=== PATIENT | male | born 1945 | race Caucasian/White ===

== ENCOUNTER → 2018-03-17 12:43 | Outpatient (CLI) | payer MEDICARE, SELFPAY ==
[2018-03-17 13:01] LABS: Microscopic, Urine URINE MICROSCOPIC (MICROSCOPIC)
[2018-03-17 13:30] LABS: Appearance,Urine CLEAR (Clear); Bilirubin,Urine Negative (Negative); Blood, Urine Negative (Negative); Color,Urine YELLOW (Yellow); Glucose,Urine (UA) Negative (Negative); Ketones,Urine Negative (Negative); Leukocyte Esterase,Urine Negative (Negative); Nitrate,Urine Negative (Negative); Protein,Urine Negative (Negative); Urobilinogen,Urine 0.2 EU/dl (0.2)
[2018-03-17 13:41] LABS: Basophils # 0.1 K/mm3 (0-0.2); Basophils % 0.7 % (0.1-2.0); Eosinophils # 0.5 K/mm3 (0.0-0.4); Eosinophils % 6.4 % (0.1-12.0); Hematocrit 48.1 % (42.0-52.0); Hemoglobin 15.3 g/dL (14.1-18.0); Lymphocytes # 1.9 K/mm3 (0.7-4.5); Lymphocytes % 26.1 K/mm3 (10-50); Mean Corpuscular HGB Conc 31.8 g/dL (31.8-35.4); Mean Corpuscular Hemoglobin 30.5 pg (27.0-31.2); Mean Platelet Volume 9.2 fl (7.4-10.4); Monocytes # 0.4 K/mm3 (0.1-1.0); Monocytes % 4.9 % (1.7-9.3); Neutrophils # 4.4 K/mm3 (1.8-7.8); Neutrophils % 61.9 % (37.0-80.0); Platelet Count 205 K/mm3 (142-424); Red Cell Distribution Width 13.3 % (11.5-17.5); White Blood Count 7.2 K/mm3 (4.8-10.8)
[2018-03-17 13:50] LABS: Creatinine,Urine Random 163 mg/dL (20-320); Total Protein,Urine Random 8.5 mg/dL (0.0-11.9)
[2018-03-17 13:54] LABS: Bacteria,Urine Trace /lpf; Squamous Epithelial Cell,Urine Occasional #/hpf (0-5)
[2018-03-17 14:25] LABS: Albumin Level 3.8 gm/dL (3.4-5.0); Anion Gap 10.7 mEq/L (5-15); Blood Urea Nitrogen 46 mg/dL (7-18); Calcium 9.2 mg/dL (8.5-10.1); Carbon Dioxide 28 mmol/L (21.0-32.0); Chloride 108 mmol/L (98-107); Creatinine,Serum 2.23 mg/dL (0.70-1.30); Estimated Glomerular Filt Rate 29 ml/min (>60); GFR (African American) 35 ML/MIN (>60); Glucose 84 mg/dL (74-106); Phosphorous 3.3 mg/dL (2.4-4.9); Potassium 5.7 mmoL/L (3.5-5.1); Sodium 141 mmol/L (136-145); Uric Acid 7.4 mg/dL (2.6-7.2)
[2018-03-18 16:53] LABS: Vitamin D 25 Hydroxy 35.3 ng/mL (30.0-100.0)
== END ==
PROVIDERS: PCP Family Medicine; Visit Provider Internal Medicine Nephrology
DX: N18.3 Chronic kidney disease, stage 3 (moderate) (principal)
CPT/HCPCS: 36415; 80069; 81001; 82570; 82652; 84155; 84550; 85025

== ENCOUNTER → 2018-04-27 13:01 | Outpatient (POV) | payer MEDICARE, SELFPAY | PROVIDERS: Visit Provider Internal Medicine Nephrology | DX: Z00.00 Encounter for general adult medical examination without abnormal findings (principal) ==

== ENCOUNTER → 2019-05-03 11:25 | Outpatient (CLI) | payer MEDICARE, SELFPAY ==
[2019-05-03 11:55] LABS: Basophils % 0.6 % (0.1-2.0); Eosinophils # 0.5 K/mm3 (0.0-0.4); Eosinophils % 7.5 % (0.1-12.0); Hematocrit 49.6 % (42.0-52.0); Lymphocytes # 1.6 K/mm3 (0.7-4.5); Lymphocytes % 25.7 % (10-50); Mean Corpuscular HGB Conc 32.2 g/dL (31.8-35.4); Mean Corpuscular Hemoglobin 31.6 pg (27.0-31.2); Mean Corpuscular Volume 97.9 fl (80-94); Monocytes # 0.3 K/mm3 (0.1-1.0); Monocytes % 5.2 % (1.7-9.3); Neutrophils # 3.8 K/mm3 (1.8-7.8); Platelet Count 193 K/mm3 (142-424); Red Blood Count 5.07 M/mm3 (4.60-6.20); White Blood Count 6.2 K/mm3 (4.8-10.8)
[2019-05-03 13:07] LABS: Albumin Level 3.9 gm/dL (3.4-5.0); Anion Gap 12.6 mEq/L (5-15); Blood Urea Nitrogen 46 mg/dL (7-18); Calcium 9.4 mg/dL (8.5-10.1); Carbon Dioxide 27 mmol/L (21.0-32.0); Chloride 103 mmol/L (98-107); Creatinine,Serum 1.93 mg/dL (0.70-1.30); Estimated Glomerular Filt Rate 34 ml/min (>60); GFR (African American) 41 ML/MIN (>60); Glucose 91 mg/dL (74-106); Phosphorous 3.5 mg/dL (2.4-4.9); Potassium 4.6 mmoL/L (3.5-5.1); Sodium 138 mmol/L (136-145); Uric Acid 8.4 mg/dL (2.6-7.2)
[2019-05-04 09:20] LABS: Vitamin D 25 Hydroxy 54.8 ng/mL (30.0-100.0)
== END ==
PROVIDERS: Visit Provider Internal Medicine Nephrology
DX: N18.4 Chronic kidney disease, stage 4 (severe) (principal)
CPT/HCPCS: 36415; 80069; 82652; 84550; 85025

== ENCOUNTER → 2019-05-10 15:17 | Outpatient (POV) | payer MEDICARE, SELFPAY | PROVIDERS: Visit Provider Internal Medicine Nephrology | DX: Z00.00 Encounter for general adult medical examination without abnormal findings (principal) ==

== ENCOUNTER 2019-11-02 05:06 | Emergency (ER) | payer MEDICARE, SELFPAY ==
--- NOTE | 2019-11-02 | ECG_ITS ---
APPROVED REPORT Exam: Resting ECG HR:63 bpm ECG Measurements Heart Rate 63 AXES WA 162 P 77 QRSd 136 QRS -48 QT 462 T 33 QTc 472 <Conclusion> Normal sinus rhythm Left axis deviation,LAHB Right bundle branch block Abnormal ECG Electronically signed by : Yang Medeiros, 11/02/2019 16:35:02
[2019-11-02 05:06] VITALS: BMI 31.3
--- NOTE | 2019-11-02 05:07 | XR_ITS ---
PROCEDURE: XR CHEST PORTABLE CLINICAL HISTORY: hypertension COMPARISON: No exams were available for comparison FINDINGS: The the study is obtained in a lordotic position. There is cardiomegaly without failure. There has been a prior CABG and aortic valve replacement. Chronic changes are present in the lung bases. There are low lung volumes. There is some pleural thickening in the left midlung laterally. IMPRESSION: Cardiomegaly. Prior median sternotomy with aortic valve replacement. No acute finding Dictated by: Hubert Cesar MD 11/02/2019 07:28 Electronically signed by Hubert Cesar MD in [facility] 11/02/2019 07:28
--- NOTE | 2019-11-02 05:07 | PC.NURSE ---
pt presents with moderate dysarthria and mod dysphagia. no other deficits. rad currently present in department and took patient immediately after iv placement and gown placement to ct via stretcher. initial nih 4.
--- NOTE | 2019-11-02 05:07 | CT_ITS ---
PROCEDURE: CT HEAD/BRAIN WO CON CLINICAL INDICATION: unable to vocalize Right-sided weakness. Unable to speak, difficulty speaking COMPARISON: No exams were available for comparison TECHNIQUE: Axial images obtained. All CT scans at the facility use one or more dose reduction, viz: automated exposure control, ma/kV adjustment per patient size (including targeted exams where dose is matched to indication, i.e. head), or iterative reconstruction technique. FINDINGS: No midline shift, mass effect, intracranial hemorrhage, hydrocephalus, or extra-axial fluid collection is evident. There is generalized atrophy with hypoattenuation of the periventricular white matter consistent with microangiopathic changes. The calvarium has an unremarkable appearance. No mastoid effusion. No sinus air-fluid level. IMPRESSION: No acute intracranial finding Dictated by: Hubetr Cesar MD 11/02/2019 07:38 Electronically signed by Hubert Cesar MD in [facility] 11/02/2019 07:38
[2019-11-02 05:12] VITALS: BP 174/102; PULSE 66; RESP 16; TEMP 36.8; O2SAT 98; BMI 28.1
--- NOTE | 2019-11-02 05:12 | PC.NURSE ---
pt in radiology with home care coordinator and monitor at bedside.
[2019-11-02 05:14] LABS: Basophils # 0.1 K/mm3 (0-0.2); Basophils % 1.2 % (0.1-2.0); Eosinophils # 0.6 K/mm3 (0.0-0.4); Eosinophils % 8.4 % (0.1-12.0); Hematocrit 48.8 % (42.0-52.0); Hemoglobin 15.8 g/dL (14.1-18.0); Lymphocytes # 1.8 K/mm3 (0.7-4.5); Lymphocytes % 27.3 % (10-50); Mean Corpuscular HGB Conc 32.3 g/dL (31.8-35.4); Mean Corpuscular Hemoglobin 30.5 pg (27.0-31.2); Mean Corpuscular Volume 94.4 fl (80-94); Mean Platelet Volume 9.4 fl (7.4-10.4); Monocytes # 0.4 K/mm3 (0.1-1.0); Monocytes % 5.9 % (1.7-9.3); Neutrophils # 3.8 K/mm3 (1.8-7.8); Neutrophils % 57.3 % (37.0-80.0); Platelet Count 194 K/mm3 (142-424); Red Blood Count 5.17 M/mm3 (4.60-6.20); Red Cell Distribution Width 14.2 % (11.5-17.5); White Blood Count 6.7 K/mm3 (4.8-10.8)
[2019-11-02 05:18] LABS: Chloride 106 mmol/L (98-107); Sodium 139 mmol/L (136-145)
[2019-11-02 05:19] LABS: Potassium 4.8 mmoL/L (3.5-5.1)
[2019-11-02 05:21] LABS: Alanine Aminotransferase 20 U/L (12-78); Albumin Level 4.2 g/dl (3.5-5.0); Alkaline Phosphatase 60 U/L (38-126); Anion Gap 10.8 mEq/L (5-15); Aspartate Amino Transferase 31 U/L (17-59); Bilirubin,Total 0.6 mg/dl (0.2-1.3); Blood Urea Nitrogen 38 mg/dl (9-20); Carbon Dioxide 27 mmol/L (22.0-30.0); Creatinine Clearance Estimated 40 mL/min (50-200); Estimated Glomerular Filt Rate 31 ml/min (>60); GFR (African American) 38 ML/MIN (>60)
[2019-11-02 05:22] LABS: Albumin/Globulin Ratio 1.4 (1.1-1.8); Calcium 9.9 mg/dl (8.4-10.2); Glucose 118 mg/dl (74-100); Prothrombin Time 23.9 seconds (9.4-11.8); Total Protein,Serum 7.2 g/dl (6.3-8.2)
--- NOTE | 2019-11-02 05:22 | PC.NURSE ---
pt back from ct. and pt agree he also had numbness to right hand that has since resolved. correcting initial nih to 6.
[2019-11-02 05:30] VITALS: BP 174/94; PULSE 89; RESP 16; TEMP 36.5; O2SAT 98
[2019-11-02 05:34] LABS: Troponin I < 0.01 ng/ml (0.00-0.034)
--- NOTE | 2019-11-02 05:38 | HMH.EDNEU ---
ED Disposition Clinical Impression: Mechanical heart valve present, Renal insufficiency Cerebrovascular accident Qualifiers: CVA mechanism: unspecified Qualified Code(s): I63.9 - Cerebral infarction, unspecified Disposition: Xfer Short-Term Hosp Condition on Discharge: Critical Referrals: Provider,Referral, MD [Primary Care Provider] - - Critical Care Critical Care Time: Yes Attestation: On 11/02/19, the high probability of a clinically significant, sudden or life threatening deterioration of the following system(s) required my full and direct attention, intervention and personal management. The time I documented below is in addition to time spent performing reported procedures but includes the following listed in this critical care notation. Total Critical Care Time: 30 Vital system(s) involved:: Central Nervous System My critical care processes included: Assessment & monitoring of V/S, Initial and Re-exams, Data Review/Interpretation, Coordinating Care, Documentation Medical Decision Making - Medical Records Medical records reviewed: Yes: I reviewed the patient's medical records. - Jimenez Inquiry Pt receiving controlled substance: No Vital Signs: 11/02/19 05:12 Temperature 98.2 F Temperature Source Oral Pulse Rate [Right Brachial] 66 Respiratory Rate 16 Blood Pressure [Right Arm] 174/102 H Blood Pressure Mean [Right Arm] 126 Blood Pressure Source [Right Arm] Manual Cuff/ Auscultation Blood Pressure Position [Right Arm] Sitting 02 Sat by Pulse Oximetry 98 Oxygen Delivery Method Room Air - Lab Data Lab results reviewed: Yes: I reviewed the patient's lab results. Lab Results 11/02/19 05:06: WBC 6.7, RBC 5.17, Hgb 15.8, Hct 48.8, MCV 94.4 H, MCH 30.5, MCHC 32.3, RDW 14.2, Plt Count 194, MPV 9.4, Neut % (Auto) 57.3, Lymph % (Auto) 27.3, Mcminn % (Auto) 5.9, Eos % (Auto) 8.4, Baso % (Auto) 1.2, Neut # (Auto) 3.8, Lymph # (Auto) 1.8, Mcminn # (Auto) 0.4, Eos # (Auto) 0.6 H, Baso # (Auto) 0.1 11/02/19 05:06: PT 23.9 H, INR 2.40 H 11/02/19 05:06: Sodium 139, Potassium 4.8, Chloride 106, Carbon Dioxide 27, Anion Gap 10.8, BUN 38 H, Creatinine 2.10 H, Estimated Creat Clear 40, Estimated GFR 31 L, Est GFR ( Amer) 38 L, Glucose 118 H, Calcium 9.9, Total Bilirubin 0.6, AST 31, ALT 20, Alkaline Phosphatase 60, Troponin I < 0.01, Total Protein 7.2, Albumin 4.2, Globulin 3.0, Albumin/Globulin Ratio 1.4 Result diagrams: 11/02/19 05:06 11/02/19 05:06 Orders (Tests/Meds): ORDERS Category Date Time Status CT head/brain wo con Stat Cat Scan 11/02/19 05:07 Taken XR chest portable Stat Exams 11/02/19 05:07 Taken Troponin I Q3H Lab 11/02/19 08:15 Ordered Troponin I Q3H Lab 11/02/19 11:15 Ordered Urinalysis and Microscopic Stat Lab 11/02/19 05:08 Ordered - Radiology Data #1 Image(s): Chest Image Reviewed: Yes I reviewed the patient's radiology image Preliminary Findings: Abnormal (cm- old arota changes ) - CT Data CT Scan: Head Time Received: 05:[address] Reviewed: Yes: I have viewed the radiologist's interpretation Preliminary Findings: Normal/NAD - ECG Data Tracing #1 Normal Sinus Rhythm: Yes Ischemic changes: non-specific ST-T wave changes Conduction abnormalities present: RBBB - Physician Consults Physician Consulted: [facility]- stroke team Reason -: Transfer to another facilty - Reevaluation(s) Time: 05:54 Reevaluation #1: still with speech abn Medical Decision Narrative: acute cva discussed with [facility] stroke team - not able for thrombolitic Neuro HPI - General Chief Complaint: Neuro Symptoms/Deficit Stated Complaint: unable to speak Time Seen by Provider: 11/02/19 05:20 Mode of Arrival: Ambulatory Source of Information: Patient, Spouse, Medical Record Limitations: No Limitations Description of Symptoms (Recalled from ER Triage Doc. by RN): reports about a quarter till 0400, tapped on her arm in bed to wake her up but couldnt speak. reports after 3-4
--- NOTE | 2019-11-02 05:48 | PC.NURSE ---
pt accepted to [facility]. spoke with dr segal
[2019-11-02 06:24] VITALS: BP 132/90; PULSE 68; RESP 16; TEMP 36.5; O2SAT 98
[2019-11-04 10:33] LABS: POC Glucose,Bedside 117 (70-110)
== END 2019-11-02 06:17 | disposition short-term general hospital (02) ==
PROVIDERS: Emergency Provider Emergency Medicine
DX: I63.9 Cerebral infarction, unspecified (principal); N28.9 Disorder of kidney and ureter, unspecified; Z95.2 Presence of prosthetic heart valve; Z79.899 Other long term (current) drug therapy
CPT/HCPCS: 70450; 71045; 80053; 82962; 84484; 85025; 85610; 93005; 96365; 99284; 99285

== ENCOUNTER → 2020-04-20 11:26 | Outpatient (CLI) | payer MEDICARE, SELFPAY ==
[2020-04-20 12:27] LABS: Basophils # 0.1 K/mm3 (0-0.2); Basophils % 0.7 % (0.1-2.0); Eosinophils # 0.4 K/mm3 (0.0-0.4); Eosinophils % 5.4 % (0.1-12.0); Hematocrit 50.6 % (42.0-52.0); Hemoglobin 16.6 g/dL (14.1-18.0); Lymphocytes # 1.5 K/mm3 (0.7-4.5); Lymphocytes % 20.2 % (10-50); Mean Corpuscular HGB Conc 32.8 g/dL (31.8-35.4); Mean Corpuscular Hemoglobin 31.2 pg (27.0-31.2); Mean Corpuscular Volume 95.3 fl (80-94); Mean Platelet Volume 8.8 fl (7.4-10.4); Monocytes # 0.5 K/mm3 (0.1-1.0); Monocytes % 5.9 % (1.7-9.3); Neutrophils # 5.2 K/mm3 (1.8-7.8); Neutrophils % 67.9 % (37.0-80.0); Platelet Count 216 K/mm3 (142-424); Red Blood Count 5.31 M/mm3 (4.60-6.20); Red Cell Distribution Width 13.8 % (11.5-17.5); White Blood Count 7.7 K/mm3 (4.8-10.8)
[2020-04-20 12:54] LABS: Anion Gap 11.3 mEq/L (5-15); Blood Urea Nitrogen 35 mg/dl (9-20); Carbon Dioxide 28 mmol/L (22.0-30.0); Chloride 103 mmol/L (98-107); Estimated Glomerular Filt Rate 37 ml/min (>60); GFR (African American) 45 ML/MIN (>60); Glucose 98 mg/dl (74-100); Phosphorous 3.4 mg/dl (2.5-4.5); Potassium 4.3 mmoL/L (3.5-5.1); Sodium 138 mmol/L (136-145); Uric Acid 7.9 mg/dl (3.5-8.5)
[2020-04-20 13:10] LABS: 25-OH Vitamin D, Total 94.4 ng/mL (30-100)
== END ==
PROVIDERS: Visit Provider Internal Medicine Nephrology
DX: N18.4 Chronic kidney disease, stage 4 (severe) (principal)
CPT/HCPCS: 36415; 80069; 82306; 84550; 85025

== ENCOUNTER → 2020-04-24 08:53 | Outpatient (POV) | payer MEDICARE, SELFPAY | PROVIDERS: Visit Provider Internal Medicine Nephrology | DX: Z00.00 Encounter for general adult medical examination without abnormal findings (principal) ==

== ENCOUNTER → 2020-05-23 13:01 | Outpatient (CLI) | payer MEDICARE, SELFPAY ==
--- NOTE | 2020-05-23 13:06 | XR_ITS ---
PROCEDURE: XR DEXA AXIAL SKELETON CLINICAL HISTORY: HEALTH SCREENING,CKD STAGE IV COMPARISON: No exams were available for comparison FINDINGS: The right hip BMD is 0.585 with a T-score of -2.5. The left hip BMD is 0.652 with a T-score of -2.5. The lumbar spine BMD is 0.773 with a T-score of -2.9. IMPRESSION: This patient is considered osteoporotic according to the World Health Organization criteria. Fracture risk is high. Treatment is advised. Based on these results a follow-up exam is recommended in one year. Dictated by: Hubert Cesar MD 05/24/2020 12:36 Hubert Cesar MD in [facility] 05/24/2020 12:36
== END ==
PROVIDERS: PCP Family Medicine; Visit Provider Internal Medicine Nephrology
DX: Z00.00 Encounter for general adult medical examination without abnormal findings (principal); Z13.820 Encounter for screening for osteoporosis; N18.4 Chronic kidney disease, stage 4 (severe); M81.0 Age-related osteoporosis without current pathological fracture
CPT/HCPCS: 77080

== ENCOUNTER → 2021-01-01 10:45 | Outpatient (CLI) | payer MEDICARE, SELFPAY ==
[2021-01-01 11:50] LABS: Albumin Level 4.1 g/dl (3.5-5.0); Anion Gap 12.9 mEq/L (5-15); Blood Urea Nitrogen 37 mg/dl (9-20); Carbon Dioxide 28 mmol/L (22.0-30.0); Chloride 105 mmol/L (98-107); Estimated Glomerular Filt Rate 37 ml/min (>60); GFR (African American) 45 ML/MIN (>60); Glucose 99 mg/dl (74-100); Phosphorous 3.3 mg/dl (2.5-4.5); Potassium 4.9 mmoL/L (3.5-5.1); Sodium 141 mmol/L (136-145)
[2021-01-01 12:18] LABS: 25-OH Vitamin D, Total 78.7 ng/mL (30-100)
[2021-01-03 23:44] LABS: Tandem-R Ostase 9.7 ug/L (7.6-24.4)
[2021-01-04 02:14] LABS: C-Telopeptide Serum 153 pg/mL (.)
== END ==
PROVIDERS: Visit Provider Internal Medicine Nephrology
DX: M81.0 Age-related osteoporosis without current pathological fracture (principal)
CPT/HCPCS: 36415; 80069; 82306; 82523; 84080

== ENCOUNTER → 2021-01-08 10:34 | Outpatient (POV) | payer MEDICARE, SELFPAY | PROVIDERS: Visit Provider Internal Medicine Nephrology | DX: Z00.00 Encounter for general adult medical examination without abnormal findings (principal) ==

== ENCOUNTER → 2021-01-29 10:38 | Outpatient (CLI) | payer MEDICARE, SELFPAY ==
--- NOTE | 2021-01-29 10:52 | XR_ITS ---
PROCEDURE: XR SHOULDER LT MIN 2V CLINICAL INDICATION: LT ROTATOR CUFF SYNDROME COMPARISON: No exams were available for comparison FINDINGS: No fracture or dislocation. No lytic or blastic change. There is normal mineralization. Mild osteoarthritic changes are present at the glenohumeral joint and acromioclavicular joint. No significant subacromial stenosis. Other findings:None. IMPRESSION: Osteoarthritis AC joint and glenohumeral joint Dictated by: Hubert Cesar MD 01/29/2021 12:16 Hubert Cesar MD in [facility] 01/29/2021 12:16
== END ==
PROVIDERS: Visit Provider Family Medicine
DX: M75.102 Unspecified rotator cuff tear or rupture of left shoulder, not specified as traumatic (principal); Z51.81 Encounter for therapeutic drug level monitoring; Z79.01 Long term (current) use of anticoagulants
CPT/HCPCS: 36415; 73030

== ENCOUNTER → 2021-01-30 11:07 | Outpatient (CLI) | payer MEDICARE, SELFPAY ==
[2021-01-30 12:55] LABS: Prothrombin Time > 90.0 seconds (10.1-12.5)
== END ==
PROVIDERS: Visit Provider Family Medicine
DX: Z51.81 Encounter for therapeutic drug level monitoring (principal); Z79.01 Long term (current) use of anticoagulants
CPT/HCPCS: 36415; 85610

== ENCOUNTER → 2021-02-21 08:52 | Outpatient (CLI) | payer MEDICARE, SELFPAY ==
[2021-02-21 09:49] LABS: Troponin I 0.05 ng/ml (0.00-0.034)
[2021-02-21 10:08] LABS: Thyroid Stimulating Hormone 3.39 uIU/mL (0.465-4.68)
== END ==
PROVIDERS: Visit Provider Family Medicine
DX: I48.91 Unspecified atrial fibrillation (principal); R07.9 Chest pain, unspecified
CPT/HCPCS: 36415; 84443; 84484

== ENCOUNTER → 2021-07-11 09:16 | Outpatient (CLI) | payer MEDICARE, SELFPAY ==
--- NOTE | 2021-07-11 09:24 | XR_ITS ---
FINAL REPORT TECHNIQUE: Bone mineral density was calculated of the lumbar spine and hip. CLINICAL HISTORY: . osteoporosis FINDINGS: Using L1-4, the bone mineral density of the spine is 0.850 g/cm2, corresponding to T-score of -2.2. Previous bone mineral density was 0.773 corresponding to a T-score of-2.9. This represents a 9.1% increase in bone mineral density. Using the left hip, the bone mineral density of the femoral neck is 0.637 g/cm2, corresponding to a T-score of -2.2. Previous bone mineral density was 0.607 corresponding to a T-score of-2.4. This represents an 8.4% increase in bone mineral density. IMPRESSION: Diminished bone mineral density of the lumbar spine and left hip consistent with osteopenia. Reviewed, Interpreted and Dictated by Angel Yusuf III, MD Transcribed by Volodymyr Sampson Authenticated by Angel Yusuf III, MD on 07/11/2021 11:05:44 AM [facility]
[2021-07-11 10:32] LABS: Creatinine,Urine Random 106 mg/dL (Not Estab.)
[2021-07-11 10:33] LABS: Microalbumin/Creatinine Ratio 17.8
[2021-07-11 11:19] LABS: Anion Gap 9.3 mEq/L (5-15); Blood Urea Nitrogen 44 mg/dl (9-20); Calcium 9.5 mg/dl (8.4-10.2); Carbon Dioxide 32 mmol/L (22.0-30.0); Chloride 103 mmol/L (98-107); Estimated Glomerular Filt Rate 39 ml/min (>60); GFR (African American) 48 ML/MIN (>60); Glucose 92 mg/dl (74-100); Phosphorous 3.8 mg/dl (2.5-4.5); Potassium 4.3 mmoL/L (3.5-5.1); Sodium 140 mmol/L (136-145)
[2021-07-11 14:59] LABS: 25-OH Vitamin D, Total 63.8 ng/mL (30-100)
[2021-07-16 14:10] LABS: Tandem-R Ostase 10.3 ug/L (7.6-24.4)
[2021-07-27 14:13] LABS: C-Telopeptide Serum 128 pg/mL (.)
== END ==
PROVIDERS: PCP Family Medicine; Visit Provider Internal Medicine Nephrology
DX: N18.4 Chronic kidney disease, stage 4 (severe) (principal); M81.0 Age-related osteoporosis without current pathological fracture; I12.9 Hypertensive chronic kidney disease with stage 1 through stage 4 chronic kidney disease, or unspecified chronic kidney disease
CPT/HCPCS: 36415; 77080; 80069; 82043; 82306; 82523; 82570; 84080

== ENCOUNTER → 2021-07-30 12:04 | Outpatient (POV) | payer MEDICARE, SELFPAY | PROVIDERS: Visit Provider Internal Medicine Nephrology | DX: Z00.00 Encounter for general adult medical examination without abnormal findings (principal) ==

== ENCOUNTER → 2021-11-06 10:23 | Outpatient (POV) | payer MEDICARE, SELFPAY | PROVIDERS: Visit Provider Dermatology | DX: Z00.00 Encounter for general adult medical examination without abnormal findings (principal) ==

== ENCOUNTER → 2021-12-04 08:24 | Outpatient (POV) | payer MEDICARE, SELFPAY | PROVIDERS: Visit Provider Dermatology | DX: Z00.00 Encounter for general adult medical examination without abnormal findings (principal) ==

== ENCOUNTER → 2022-01-30 10:25 | Outpatient (CLI) | payer MEDICARE, SELFPAY ==
[2022-01-30 11:47] LABS: Albumin Level 3.5 g/dl (3.5-5.0); Anion Gap 9.4 mEq/L (5-15); Blood Urea Nitrogen 36 mg/dl (9-20); Carbon Dioxide 27 mmol/L (22.0-30.0); Chloride 109 mmol/L (98-107); Estimated Glomerular Filt Rate 42 ml/min (>60); GFR (African American) 51 ML/MIN (>60); Glucose 105 mg/dl (74-100); Phosphorous 3.4 mg/dl (2.5-4.5); Potassium 4.4 mmoL/L (3.5-5.1); Sodium 141 mmol/L (136-145)
== END ==
PROVIDERS: PCP Family Medicine; Visit Provider Internal Medicine Nephrology
DX: N18.32 Chronic kidney disease, stage 3b (principal)
CPT/HCPCS: 36415; 80069

== ENCOUNTER → 2022-02-04 12:55 | Outpatient (POV) | payer MEDICARE, SELFPAY | PROVIDERS: Visit Provider Internal Medicine Nephrology | DX: Z00.00 Encounter for general adult medical examination without abnormal findings (principal) ==

== ENCOUNTER → 2022-03-12 08:55 | Outpatient (POV) | payer MEDICARE, SELFPAY | PROVIDERS: Visit Provider Dermatology | DX: Z00.00 Encounter for general adult medical examination without abnormal findings (principal) ==

== ENCOUNTER 2022-11-09 23:00 | Emergency (ER) | payer MEDICARE, SELFPAY ==
[2022-11-09 23:01] VITALS: BP 185/95; PULSE 101; RESP 13; TEMP 36.7; O2SAT 96; BMI 25.0
--- NOTE | 2022-11-09 23:06 | ECG_ITS ---
APPROVED REPORT Exam: Resting ECG HR:95 bpm ECG Measurements Heart Rate 95 AXES QRSd 147 QRS 188 QT 372 T 29 QTc 425 Conclusion ATRIAL FIBRILLATION RIGHT AXIS DEVIATION [QRS AXIS > 100] RIGHT BUNDLE BRANCH BLOCK AND POSSIBLE RIGHT VENTRICULAR HYPERTROPHY [RBBB, 1.5 mV R IN V1, RAD] ABNORMAL ECG UNCONFIRMED REPORT Electronically signed by : Samuel Payne MD 11/10/2022 07:31:47
--- NOTE | 2022-11-09 23:17 | XR_ITS ---
PROCEDURE INFORMATION: Exam: XR Chest Exam date and time: 11/09/2022 11:25 PM Age: 76 years old Clinical indication: Other: Irregular heart rhythm; Additional info: Heart rhythm irregularity TECHNIQUE: Imaging protocol: Radiologic exam of the chest. Views: 2 views. COMPARISON: CR XR CHEST PORTABLE 11/02/2019 5:34 AM FINDINGS: Lungs: Moderate lung expansion. Mild basilar atelectasis/scarring. No focal consolidation. Pleural spaces: No pleural effusion. No pneumothorax. Heart/Mediastinum: Stable cardiomediastinal silhouette status post mechanical aortic valve replacement and presumed CABG. Bones/joints: Intact sternotomy wires. Surgical clips project over the right upper abdominal quadrant. IMPRESSION: No acute findings.
[2022-11-09 23:24] LABS: Basophils # 0.1 K/mm3 (0-0.2); Basophils % 0.6 % (0.1-2.0); Eosinophils # 0.3 K/mm3 (0.0-0.4); Eosinophils % 4.5 % (0.1-12.0); Hematocrit 51.9 % (42.0-52.0); Hemoglobin 16.8 g/dL (14.1-18.0); Lymphocytes # 2.1 K/mm3 (0.7-4.5); Lymphocytes % 29.7 % (10-50); Mean Corpuscular HGB Conc 32.4 g/dL (31.8-35.4); Mean Corpuscular Hemoglobin 31.2 pg (27.0-31.2); Mean Corpuscular Volume 96.3 fl (80-94); Mean Platelet Volume 9.8 fl (7.4-10.4); Monocytes # 0.5 K/mm3 (0.1-1.0); Monocytes % 6.9 % (1.7-9.3); Neutrophils # 4.2 K/mm3 (1.8-7.8); Neutrophils % 58.3 % (37.0-80.0); Platelet Count 181 K/mm3 (142-424); Red Blood Count 5.39 M/mm3 (4.60-6.20); Red Cell Distribution Width 13.7 % (11.5-17.5); White Blood Count 7.2 K/mm3 (4.8-10.8)
[2022-11-09 23:27] LABS: Chloride 101 mmol/L (98-107); Sodium 139 mmol/L (136-145)
[2022-11-09 23:28] LABS: Potassium 4.2 mmoL/L (3.5-5.1)
[2022-11-09 23:30] VITALS: BP 166/93; PULSE 66; RESP 14; O2SAT 96
[2022-11-09 23:31] LABS: Anion Gap 15.2 mEq/L (5-15); Blood Urea Nitrogen 37 mg/dl (9-20); Calcium 9.3 mg/dl (8.4-10.2); Carbon Dioxide 27 mmol/L (22.0-30.0); Creatinine Clearance Estimated 43 mL/min (50-200); Estimated Glomerular Filt Rate 49 ml/min (>60); GFR (African American) 59 ML/MIN (>60); Glucose 102 mg/dl (74-100)
[2022-11-09 23:40] LABS: NT Pro Brain Natriuretic Pep. 2220 pg/mL (0-450)
[2022-11-09 23:44] LABS: Troponin I 0.02 ng/ml (0.00-0.034)
[2022-11-09 23:49] LABS: T4 (Thyroxine) 7.8 ug/dl (5.53-11.0)
[2022-11-10] VITALS: BP 144/93; PULSE 76; RESP 16; O2SAT 97
--- NOTE | 2022-11-10 00:06 | HMH.EDARPALP ---
Discharge Plan Disposition Patient Disposition: Home, Self-Care Chief Complaint: Arrhythmia/Palpitations Prescriptions Prescriptions: No Action warfarin 2 mg tablet 1 tab PO DAILY Label Comments: TAKE 1 TABLET BY MOUTH ONCE DAILY lisinopril 5 MG tablet 5 mg PO DAILY hydrochlorothiazide 25 MG tablet 25 mg PO DAILY atorvastatin 40 mg tablet 40 mg PO DAILY Label Comments: TAKE 1 TABLET BY MOUTH ONCE DAILY bisoprolol fumarate 5 mg tablet 5 mg PO DAILY Label Comments: TAKE 1/2 (ONE-HALF) TABLET BY MOUTH ONCE DAILY tamsulosin 0.4 mg capsule 0.4 mg PO DAILY Label Comments: TAKE 1 CAPSULE BY MOUTH ONCE DAILY Referrals Follow up/Referrals: Brittanie Davila APRN [Primary Care Provider] - See instructions Clinical Impressions Clinical Impression: Mechanical heart valve present, Atrial fibrillation, RBBB (right bundle branch block with left anterior fascicular block) Instructions Patient Instructions: Atrial Fibrillation Discharge ED Provider: Tina (ED)Simeon Arrhythmia/Palpitations HPI General Chief Complaint: Arrhythmia/Palpitations Stated Complaint: Irregular heart rate Time Seen by Provider: 11/10/22 00:06 Mode of Arrival: Family Vehicle Source of Information: Patient and Medical Record Limitations: No Limitations History of Present Illness HPI narrative: pt with hx of occ a fib and in a fib now and has hr as low as 35 earlier - has been compliant with meds - no chest pain or syncope MD complaint: irregular heart beat Onset (ago): hour(s) Duration: intermittent Severity: moderate Arrhythmia history: atrial fibrillation and on anti-coagulants Associated symptoms: denies other symptoms Related Data Home Medications Medication Instructions Recorded Confirmed hydrochlorothiazide 25 mg tablet 25 mg PO DAILY htn/diuretic 11/02/19 11/02/19 lisinopril 5 mg tablet 5 mg PO DAILY htn 11/02/19 11/02/19 warfarin 2 mg tablet 1 tab PO DAILY anticoagulant 11/02/19 11/02/19 atorvastatin 40 mg tablet 40 mg PO DAILY Cholesterol 11/10/22 11/10/22 bisoprolol fumarate 5 mg tablet 5 mg PO DAILY htn 11/10/22 11/10/22 tamsulosin 0.4 mg capsule 0.4 mg PO DAILY bph 11/10/22 11/10/22 Allergies Allergy/AdvReac Type Severity Reaction Status Date / Time Penicillin Allergy Unknown Uncoded 06/10/17 14:59 [facility] Disclaimer: The information contained in this section may have been updated after the patient was seen, as this information can be updated by other users. Social History Smoking Status: Never smoker alcohol intake: never current occupational status: retired Travel in the last 8 weeks: None ROS Obtained: Yes All systems reviewed & no additional complaints except as documented Physical Exam General General appearance: alert Head Head exam: normocephalic Eye Eye exam: Present PERRL and EOMI ENT ENT exam: Present mucous membranes moist Neck Neck exam: Present trachea midline Respiratory Respiratory exam: Present normal lung sounds bilaterally; Absent respiratory distress Cardiovascular Cardiovascular exam: Present irregular rhythm, systolic murmur, clicks and +S4 Abdominal Exam Abdominal exam: Present soft Extremities Exam Extremities exam: Present full ROM; Absent calf tenderness Neurological Exam Neurological exam: Present alert, oriented X3 and CN II-XII intact Psychiatric Psychiatric exam: Present normal affect Skin Skin exam: Absent rash Medical Decision Making Medical Records Medical records reviewed: Yes I reviewed the patient's medical records. Jimenez Inquiry Pt receiving controlled substance: No Vital Signs: 11/09/22 23:01 11/09/22 23:30 11/10/22 00:00 Temperature 98.1 F Temperature Source Oral Pulse Rate 66 76 Pulse Rate [Right Brachial] 101 H Respiratory Rate 13 14 16 Blood Pressure 166/93 H 144/93 H Blood Pressure [Right Arm] 185/95 H Blood Pressure Mean 117 122 Blood Pressure Mean [R
[2022-11-10 00:12] VITALS: BP 179/114; PULSE 54; RESP 14; O2SAT 95
[2022-11-10 00:30] VITALS: BP 153/97; PULSE 54; RESP 16; O2SAT 95
[2022-11-10 00:36] LABS: Prothrombin Time 26.6 seconds (10.1-12.5)
--- NOTE | 2022-11-10 01:24 | PC.NURSE ---
speaking to Dr. Gutierrez at this time
[2022-11-10 01:38] VITALS: BP 165/71; PULSE 59; RESP 19; TEMP 36.7; O2SAT 98
== END 2022-11-10 01:40 | disposition home or self-care (01) ==
PROVIDERS: Emergency Provider Emergency Medicine; PCP Nurse Practitioner Family
DX: I48.91 Unspecified atrial fibrillation (principal); I44.4 Left anterior fascicular block; Z95.2 Presence of prosthetic heart valve
CPT/HCPCS: 71046; 80048; 83880; 84436; 84443; 84484; 85025; 85610; 93005; 96360; 99285

== ENCOUNTER → 2023-03-04 10:46 | Outpatient (CLI) | payer MEDICARE, SELFPAY ==
[2023-03-04 12:24] LABS: Albumin Level 3.8 g/dl (3.5-5.0); Anion Gap 13.6 mEq/L (5-15); Blood Urea Nitrogen 32 mg/dl (9-20); Calcium 9.3 mg/dl (8.4-10.2); Carbon Dioxide 28 mmol/L (22.0-30.0); Chloride 105 mmol/L (98-107); Estimated Glomerular Filt Rate 53 ml/min (>60); GFR (African American) 65 ML/MIN (>60); Glucose 137 mg/dl (74-100); Phosphorous 4.4 mg/dl (2.5-4.5); Potassium 4.6 mmoL/L (3.5-5.1); Sodium 142 mmol/L (136-145)
[2023-03-04 12:38] LABS: 25-OH Vitamin D, Total 64.2 ng/mL (30-100)
[2023-03-04 13:51] LABS: Creatinine,Urine Random 138 mg/dL (Not Estab.)
[2023-03-04 13:53] LABS: Microalbumin/Creatinine Ratio 6.4
[2023-03-08 05:09] LABS: Tandem-R Ostase 13.4 ug/L (7.6-24.4)
[2023-03-08 20:04] LABS: C-Telopeptide Serum 261 pg/mL (.)
== END ==
PROVIDERS: PCP Family Medicine; Visit Provider Internal Medicine Nephrology
DX: N18.32 Chronic kidney disease, stage 3b (principal); M81.0 Age-related osteoporosis without current pathological fracture
CPT/HCPCS: 36415; 80069; 82043; 82306; 82523; 82570; 84080

== ENCOUNTER 2024-02-18 09:53 | Outpatient (CLI) | payer MEDICARE, SELFPAY ==
--- NOTE | 2024-02-18 09:58 | US_ITS ---
FINAL REPORT CLINICAL HISTORY: LT SIDED INGUINAL PAIN COMPARISON: None FINDINGS: Limited sonographic images were obtained of the left inguinal region at the area of interest. Lymph nodes are noted measuring up to 1 cm. These nodes contain fatty aquilino. There is no evidence of hernia. IMPRESSION: No evidence of hernia. CT could better evaluate. Reviewed, Interpreted and Dictated by Stuart Nichole MD Transcribed by Daina Fan Authenticated and [facility]
--- NOTE | 2024-02-18 09:59 | CT_ITS ---
FINAL REPORT TECHNIQUE: Axial images through the abdomen and pelvis were performed without contrast. This study was performed with techniques to keep radiation doses as low as reasonably achievable, (ALARA). Individualized dose reduction techniques using automated exposure control or adjustment of mA and/or kV according to the patient's size were employed. CLINICAL HISTORY: ABD PAIN, INGUINAL LYMPHADENITIS FINDINGS: Abdomen: There is streak artifact from heart valve. The patient is status post median sternotomy. There is chronic scarring at the lung bases. The liver parenchyma is homogeneous. The gallbladder is absent. The spleen, pancreas, and adrenals are unremarkable. There are nonobstructing bilateral renal stones. A left renal stone measures up to 10 mm in greatest dimension. There is a left renal cyst measuring 6.6 x 6.4 cm. There is abnormal soft tissue surrounding the mid abdominal aorta extending along the left renal vessels. This abnormal soft tissue measures 5.4 x 3.7 cm and is well-seen on image 47 of series 3. Pelvis: The urinary bladder is unremarkable. The appendix is not visualized. There is no pelvic mass or inflammation. There is mild stranding throughout the iliac regions bilaterally, left greater than right. There is an enlarged left inguinal lymph node measuring 1.8 cm. There is grade 1 spondylolisthesis of L4 on L5 with high-grade bilateral neuroforaminal narrowing at this level. IMPRESSION: No inguinal hernia. Infiltrative soft tissue mass surrounding the mid abdominal aorta concerning for a neoplastic process such as lymphoma. PET/CT is recommended. In addition, correlation with any prior outside studies is recommended. Bilateral renal stones. Reviewed, Interpreted and Dictated by Stuart Nichole MD Transcribed by Ghazala Damon Authenticated and [facility]
== END 2024-02-18 23:59 | disposition home or self-care (01) ==
LOC: RAD 09:54
PROVIDERS: PCP Family Medicine; Visit Provider Nurse Practitioner
DX: I88.9 Nonspecific lymphadenitis, unspecified (principal)
CPT/HCPCS: 74176; 76882

== ENCOUNTER 2024-03-02 12:18 | Outpatient (CLI) | payer MEDICARE, SELFPAY ==
[2024-03-02 12:47] LABS: Hematocrit 48.8 % (42.0-52.0); Hemoglobin 15.1 g/dL (14.1-18.0); Mean Corpuscular Hemoglobin 30.8 pg (27.0-31.2); Mean Corpuscular Volume 99.5 fl (80-94); Platelet Count 202 K/mm3 (142-424); Red Blood Count 4.91 M/mm3 (4.60-6.20); Red Cell Distribution Width 13.8 % (11.5-17.5); White Blood Count 7.2 K/mm3 (4.8-10.8)
[2024-03-02 14:08] LABS: Creatinine,Urine Random 112 mg/dL (Not Estab.); Total Protein,Urine Random < 5.0 mg/dL (0.0-12.0)
[2024-03-02 14:09] LABS: Albumin Level 3.5 g/dl (3.5-5.0); Blood Urea Nitrogen 31 mg/dl (9-20); Calcium 9.5 mg/dl (8.4-10.2); Carbon Dioxide 30 mmol/L (22.0-30.0); Chloride 106 mmol/L (98-107); Estimated Glomerular Filt Rate 58 ml/min (>60); GFR (African American) 71 ML/MIN (>60); Glucose 97 mg/dl (74-100); Sodium 138 mmol/L (136-145)
[2024-03-02 14:12] LABS: Microalbumin/Creatinine Ratio 5.4
== END 2024-03-02 23:59 | disposition home or self-care (01) ==
LOC: LAB 12:21
PROVIDERS: Internal Medicine Nephrology; PCP Family Medicine; Visit Provider Psychiatry & Neurology Neurology
DX: N18.32 Chronic kidney disease, stage 3b (principal)
CPT/HCPCS: 36415; 80069; 82043; 82570; 84156; 85027

== ENCOUNTER 2024-10-21 11:05 | Outpatient (CLI) | payer MEDICARE, SELFPAY ==
[2024-10-21 11:13] LABS: Microscopic, Urine URINE MICROSCOPIC (MICROSCOPIC)
[2024-10-21 11:41] LABS: Basophils % 0.5 % (0.1-2.0); Eosinophils # 0.3 Kmm3 (0.0-0.4); Eosinophils % 6.2 % (0.1-12.0); Hematocrit 42.1 % (42.0-52.0); Lymphocytes % 17.8 % (10-50); Mean Corpuscular HGB Conc 33.3 g/dL (31.8-35.4); Mean Corpuscular Hemoglobin 31.7 pg (27.0-31.2); Mean Corpuscular Volume 95.2 fl (80-94); Mean Platelet Volume 10.4 fl (7.4-10.4); Monocytes # 0.6 K/mm3 (0.1-1.0); Monocytes % 10.4 % (1.7-9.3); Neutrophils # 3.6 K/mm3 (1.8-7.8); Neutrophils % 64.6 % (37.0-80.0); Nucleated Red Blood Cells # 0 10^3/uL; Nucleated Red Blood Cells % 0 %; Platelet Count 173 K/mm3 (142-424); Red Blood Count 4.42 M/mm3 (4.60-6.20); Red Cell Distribution Width-SD 51.7 fL; White Blood Count 5.5 K/mm3 (4.8-10.8)
[2024-10-21 11:44] LABS: Appearance,Urine CLEAR (Clear); Bilirubin,Urine Negative (Negative); Blood, Urine Negative (Negative); Color,Urine YELLOW (Yellow); Glucose,Urine (UA) Negative (Negative); Ketones,Urine Negative (Negative); Leukocyte Esterase,Urine Negative (Negative); Nitrate,Urine Negative (Negative); Protein,Urine Negative (Negative); Specific Gravity, Urine 1.015 (1.005-1.030); Urobilinogen,Urine 0.2 EU/dl (0.2)
[2024-10-21 11:52] LABS: Bacteria,Urine Trace /lpf; Hyaline Casts,Urine OCC #/lpf (0); RBC,Urine Occasional #/hpf (0-3); Squamous Epithelial Cell,Urine Occasional #/hpf (0-5); WBC,Urine Occasional #/hpf (0-3)
[2024-10-21 12:32] LABS: Albumin Level 3.8 g/dl (3.5-5.0); Anion Gap 5.4 mEq/L (5-15); Blood Urea Nitrogen 18 mg/dl (9-20); Calcium 9.4 mg/dl (8.4-10.2); Carbon Dioxide 26 mmol/L (22.0-30.0); Chloride 109 mmol/L (98-107); Estimated Glomerular Filt Rate 81 ml/min (>60); GFR (African American) 98 ML/MIN (>60); Glucose 149 mg/dl (74-100); Phosphorous 3.2 mg/dl (2.5-4.5); Potassium 4.4 mmoL/L (3.5-5.1); Sodium 136 mmol/L (136-145)
[2024-10-21 12:33] LABS: Creatinine,Urine Random 145 mg/dL (Not Estab.)
[2024-10-21 12:44] LABS: Intact Parathyroid Hormone 49.1 pg/mL (7.5-53.5)
[2024-10-25 02:19] LABS: C-Telopeptide Serum 348 pg/mL (.)
== END 2024-10-21 23:59 | disposition home or self-care (01) ==
LOC: LAB 11:06
PROVIDERS: PCP Nurse Practitioner; Visit Provider Internal Medicine Nephrology
DX: N18.31 Chronic kidney disease, stage 3a (principal); M89.9 Disorder of bone, unspecified
CPT/HCPCS: 36415; 80069; 81001; 82306; 82523; 82570; 83970; 85025

== ENCOUNTER 2025-01-06 10:46 | Outpatient (CLI) | payer MEDICARE, SELFPAY ==
--- OUTSIDE RECORDS SUMMARY | 2025-01-06 10:48 | XMS_ITS | Encounter Summary ---
Author Organization Healthcare Address [address] [place] [address] Care Team Providers Care Inspector Scales Name Role Phone Pietro Martinez MD Primary Care Provider [phone] Encounter Details Date Type Department Care Team (Late st Contact Info) Description 03/22/2024 Orders Only External Location [address] [place] [address] Provider, External Social History Tobacco Use Types Packs/Day Years Used Date Smoking Tobacco: Former Smokeless Tobacco: Never Alcohol Use Standard Drinks/Week Comments No 0 (1 standard drink = 0.6 oz pur e alcohol) Sex and Gender Information Value Date Recorded Sex Assigned at Not on file Legal Sex Male 8:22 PM EDT Gender Identity Not on file Sexual Orientation Not on file documented as of this encounter Plan of Treatment Not on file documented as of this encounter Procedures Procedure Name Priority Date/Time Associated Diagnosis Comments CT OUTSIDE IMAGES 03/22/2024 3:04 PM EDT documented in this encounter Results * CT OUTSIDE IMAGES (03/22/2024 3:04 PM EDT) Anatomical Region Laterality Modality Computed Tomogra phy 03/22/2024 3:04 PM EDT us External Provider IMG CT PROCEDURES Final Result documented in this encounter Visit Diagnoses Not on filedocumented in this encounter Additional Health Concerns Assessment Noted Time A fall risk assessment has been complete d for the patient 03/15/2024 2:36 PM EDT A Body Mass Index follow-up plan has been documented for the patient 03/19/2024 10:01 AM EDT documented as of this encounter Care Teams Inspector Scales Relationship Specialty Start Date End Date Pietro Martinez MD [address] [place] [address] #1 [address]1 DUSTY Bender [id number] PCP - General 02/04/22 documented as of this encounter
--- OUTSIDE RECORDS SUMMARY | 2025-01-06 10:48 | XMS_ITS | Clinical Summary ---
Author Organization [employer] ([place], [place], [place], [place]) Address [address] [place] [address] Care Team Providers Care Generation Engineer Name Role Phone Pietro Martinez MD Primary Care Provider [phone] Simeon Guerrero MD Unavailable [phone] Allergies Active Allergy Reactions Criticality Noted Date Comments Penicillins Rash Low 03/21/2014 Other reaction(s): Unknown Medications aspirin 81 MG EC tablet Take 1 tablet (81 mg total) by mouth daily. Active atorvastatin (LIPITOR) 40 MG tablet Take 1 tablet (40 mg total) by mouth daily. Active nitroglycerin (NITROSTAT) 0.[address] 1 tablet (0.4 mg total) under the tongue every 5 (five) minutes as needed Put 1 pill under tongue every 5min as needed for chest pain.No more than 3 doses in 15min.Call 911 if pain unrelieved 5min after 1st dose. Active tamsulosin (FLOMAX) 0.4 mg Cap 24 hr capsule Take 1 capsule (0.4 mg total) by mouth daily. Active warfarin (COUMADIN, JANTOVEN) 1 MG tablet Take 2 tablets (2 mg total) by mouth daily 2 mg, Sun, Tues, Thurs, Sat. 2.5 mg, Mon, Wed, FRi. Active timolol (TIMOPTIC) 0.25 % ophthalmic solution 3 Active cholecalciferol , vitamin D3, 50 mcg (2,000 unit) Cap Take 400 Units by mouth daily. Active omega-3 fatty acids-fish oil 340-1,000 mg Cap per capsule Take 2 capsules (2 g total) by mouth 2 (two) times daily. Active lisinopriL (PRINIVIL,ZESTR IL) 5 MG tablet Take 1 tablet (5 mg total) by mouth daily. 90 tablet 3 3 Active amLODIPine (NORVASC) 5 MG tablet Take 1 tablet (5 mg total) by mouth daily. Active bisoprolol (ZEBETA) 5 MG tablet Take 1 tablet (5 mg total) by mouth daily Pt takes 1/2 tablet PRN. Active allopurinoL (ZYLOPRIM) 300 MG tablet Take 1 tablet (300 mg total) by mouth in the morning. Active Active Problems Problem Noted Date Diagnosed Date Cerebrovascular accident (CVA) 05/22/2024 Stomach ulcer 05/22/2024 Hx of hyperlipidemia 12/19/2022 Obstructive sleep apnea syndrome 12/19/2022 Thoracic aortic aneurysm 12/19/2022 Heart disease, rheumatic 12/19/2022 Arthritis 06/13/2022 Benign prostatic hyperplasia 06/13/2022 Chronic kidney disease (CKD) 06/13/2022 Glaucoma 06/13/2022 Hernia, incisional 06/13/2022 Hx of CABG 06/13/2022 Myocardial infarction 06/13/2022 TIA (transient ischemic attack) 06/13/2022 Overview (06/13/2022): 10/2019. Presented with dysarthria and right arm numbness. Treated at . No residual deficit. INR was 2.6 at that time. Running INR around 3 since this event. Hypertension 04/17/2021 Bifascicular block 03/05/2021 Tetralogy of Fallot 03/05/2021 Overview (06/13/2022): h/o Tetralogy of Fallot Repair age 17. 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 Normal function by Echo 05/2019. Stroke 11/30/2019 History of stroke 11/24/2019 Ascending aortic aneurysm 05/28/2019 BPH (benign prostatic hyperplasia) 02/02/2015 Chronic kidney disease, stage 3 03/21/2014 Hypertension 03/21/2014 Renal osteodystrophy 03/21/2014 Resolved Problems Problem Noted Date Diagnosed Date Resolved Date H/O aortic valve replacement 06/13/2022 12/19/2022 Overview (06/18/2022): Chemical AVR: [facility] in 1982 Abdominal aortic aneurysm (AAA) 06/13/2022 12/19/2022 Overview (06/13/2022): followed by Dr. Pimentel. Tetralogy of Fallot s/p repair 06/13/2022 12/19/2022 GERD (gastroesophageal reflux disease) 06/13/2022 12/19/2022 Arteriosclerosis of coronary artery 04/17/2021 12/19/2022 Overview (06/13/2022): Cath/PCI 04/2014 with BMS to Cx and PTCA to LAD at [facility] anastamosis. Occluded SVG-RCA but patent RCA stents. h/o remote [place]. CABG 1982. Hyperlipidemia 04/17/2021 06/20/2023 Typical atrial flutter 03/05/202112/19 Overview (06/13/2022): Diagnosis 01/2021. Single cardioversion. Osteoporosis 06/12/2020 05/22/2024 Family History Medical History Relation Name Comments Lymphoma Father Heart disease Mother Relation Name Status Comments Father Mother Social History Tobacco Use Types Packs/Day Years Used Date Smoking Tobacco: Former Cigarettes Q uit: 1982 Smokeless Tobacco: Never Tobacco Cessation:Counseling Given: Not Answered Alcohol Use Standard Drinks/Week Comments Never 0 (1 standard drink = 0.6 oz pur e alcohol) Family and Community Support Answer Fran e Recorded Help with Day to Day Activities Not on file 07/05/2023 Feeling Lonely or Isolated Not on file 07/05 Educational Attainment Answer Date Marco Antonio rded Speak language other than Ghanaian at home Not on file 07/05/2023 Want help with school or training Not on file 07/05/2023 Substance Use Answer Date Recorded Used prescription meds for non-medical reasons N ot on file 07/05/2023 Used illegal drugs past 12 months Not on file 07/05/2023 Sex and Gender Information Value Date Recorded Sex Assigned at Not on file Legal Sex Male 5:43 PM CDT Gender Identity Not on file Sexual Orientation Not on file Last Filed Vital Signs Vital Sign Reading Time Taken Comments Blood Pressure 124/68 08/17/2024 2:02 PM EST Pulse 68 08/17/2024 2:02 PM EST Temperature 36.1 C (97 F) 12/19/2022 6:44 AM EDT Respiratory Rate 14 12/19/2022 1:33 PM EDT Oxygen Saturation 92% 08/17/2024 2:02 PM EST Inhaled Oxygen Concentration - - Weight 68.7 kg (151 lb 6.4 oz) 08/17/2024 2:02 P M EST Height 165.1 cm (5' 5 ) 08/17/2024 2:02 PM EST Body Mass Index 25.19 08/17/2024 2:02 PM EST Plan of Treatment Upcoming Encounters Date Type Department Care Team (Late st Contact Info) Description 01/24/2025 11:00 AM EDT Office Visit [facility] Electrophysiology [address] [place], [place] [phone] Joanne Card MD [address] [place], [place] [id number] 02/15/2025 11:00 AM EDT Office Visit [facility] Cardiology [address] [place], [place] [phone] Arnulfo Luciano APRN [address] [place] [address] [address] Health Maintenance Due Date Last Done Comments Medicare Initial AWV G0438 Depression Screening (12+) 1956 Pneumococcal 50+ years (1 of 2 - PCV) 12/03/1963 DTAP/TDAP/TD VACCINES (2 - T d or Tdap) 08/25/2006 08/25/1996 Respiratory Syncytial Virus (RSV) Adult or (1 - 1-dose 75+ series) 12/03/2019 COVID-19 VACCINE (5 2023-2 5 season) 2024 10/10/2021, 04/18/2021, 07/31/2020, Additional history exists Falls Risk Screening 06/23/2024 Influenza Vaccine (#1) 2025 04/05/2016, 2015 Tobacco Cessation Counseling and Screening (12+) 08/18/2025 08/18/2024 Shingles Vaccine (Zoster) Completed 2018, 06/24/2018, 04/22/2013 Insurance [employer] PFFS [employer] PPO Advance Directives For more information, please contact: [phone] Documents on File Type Date Recorded Patient Physician Expl anation Advance Directives and Livin g Will 12/19/2022 5:33 AM * Full Code (Latest Code Status on File) Date Activated Date Inactivated Comments 12/19/2022 10:35 AM 12/20/2022 4:25 AM * Full Code Date Activated Date Inactivated Comments 12/18/2022 8:18 PM 12/19/2022 10:35 AM Care Teams Generation Engineer Relationship Specialty Start Date End Date Pietro Martinez MD [address] [place] [phone] PCP - General Family Medicine 06/19/22 Simeon Guerrero MD [address] [place] [address] [place] [address] Referring Physician Cardiology 12/19/22
--- OUTSIDE RECORDS SUMMARY | 2025-01-06 10:48 | XMS_ITS | Continuity of Care Document ---
Author Organization [facility] Address [address] [place] [address] Care Team Providers Care Cashier Self Service Gasoline Name Role Phone JORDAN YASIR Primary Care Provider Assessment No assessment recorded. Plan of Treatment Reminders Order Date Submit Date Provider Last Modified By Organization Details Last Modified Time Details Appointments OV EST 30 2024 03:00P M Shirley Hallman PA-C Not available Not available Not available FOLLOW UP 30 2024 11:00A M GLORIA LAY MD Not available Not available Not available OV EST 15 2024 02:00P M HILTON MELENDREZ MD Not available Not available Not available Lab None recorded . Referral None recorded . Procedures None recorded . Surgeries None recorded . Imaging PET-CT, skull base to mid-thig h scan 2024 05/ [address] (Centralized Scheduling), [address] [place], [address], 11/17/2024 13:00:56 Medication Orders None recorded . Patient TargetsNo targets recorded. Patient InstructionsNo instructions recorded. Reason for Referral None Reported. Results Created Date Observation Date Name Description Value Unit Range Abnormal Flag Note LastModifiedBy Organization Detail LastModifiedTime 12/01/19 25 11/29/2024 PET w/CT skull -mid thigh [facility] [address] [place] [address] Phone: Fax: Name: ANGELICA LOUIS Exam Date: 11/30/19 25 : 945 Age 78 years Gender : M Access ion: [id number] Physic josue: WALTER PARIKH Facili ty: [facility] Facili ty HSV: Outpat ient Exam: PET W/CT SKULL- MID THIGH EXAMIN ATION: SKULL BASE TO MID THIGH F-18 FDG PET/CT CLINIC AL INDICA TION: Male, 78 years old. TECHNI QUE: Low dose, non-di agnost ic qualit y CT images were acquir ed from the skull base to the mid thighs for attenu ation correc tion and anatom ic locali zation . This was follow ed by positr on emissi on tomogr aphy (PET) imagin g in the same distri bution . Radiop harmac eutica l: 12.5 mCi of F-18 FDG. Recent blood sugar level: 101 mg/dl. Uptake time: 48 minute s. COMPAR VITO: Februa ry 2023 CORREL ATION: None. FINDIN GS: Refere nce backgr ound hepati c uptake maximu m SUV: 3.1 Refere nce medias tinal blood pool maximu m SUV: 2.6 HEAD AND NECK: Physio logic radiot racer distri bution . Non-di agnost ic CT findin gs: None. CHEST: Physio logic radiot racer distri bution . Non-di agnost ic CT findin gs: Modera te emphys ranjana with bibasi lar atelec tasis. Cardio megaly with aneury smal ascend ing thorac ic aorta measur ing up to 4.7 cm. Severe martin ry artery calcif icatio n. Descen ding thorac ic aorta is upper limits of normal at 3 to 3.1 cm. Severe emphys ranjana. ABDOME N AND PELVIS : Persis tent left para-a ortic soft tissue with hetero geneou s uptake , maximu m SUV of 3.2. Wide range of physio logic FDG uptake to bowel, nonspe cific, limits assess ment. Sherie-b ladder artifa ct, limits evalua tion of FDG uptake to adjace nt soft tissue s. Non-di agnost ic CT findin gs: Photop enic left renal cyst. Nonobs tructi ng bilate ral nephro lithia sis. Cholec ystect apple. MUSCUL OSKELE DENISSE: Physio logic radiot racer distri bution . Non-di agnost ic CT findin gs: Median sterno mesfin. IMPRES ZIYAD: Legall y authen ticate d by MARKOS MCKEON 11-30 11:03: 46 Persis tent left para-a ortic soft tissue with hetero geneou s uptake , maximu m SUV of 3.2, avidit y simila r to prior study. Correl ate with treatm ent histor y. Aneury smal ascend ing thorac ic aorta measur ing up to 4.7 cm. Recomm end annual survei llance for furthe r assess ment and manage ment. Electr onical ly signed by: Uriel palacios MD 2024 11:03 AM EDT RP Workst ation: [id number] Dictat ed By: Uriel Mace Transc ribed By: Transc ribed On: 025 11:03 AM Electr onical ly signed by: Uriel Mace 025 Thank you for referr ANGELICA Quinonez to [facility]. Legall y authen ticate d by MARKOS FLYNN OR 11-30 11:03: 46 CC'ed Logic: Orderi ng Provid er: JL BATEMAN Attend ing Provid er: JL BATEMAN Referr ing Provid er: JL Stoneitt ing Provid er: JL schmidt[address] [place] [address] - Physical Therapy [address] [facility], [place], [address], 12/01/2024 10:53:35 Result Notes None recorded. Problems Name Problem SNOMED Code Status Onset Date Resolution Date Notes Provider Name and Address Organization Details Recorded Time Kidney disease 68869744 Active 2023 DUSTY Juarez - [place] & [place] 13:23:45 Cerebrovascul ar accident 107856149 Active 2023 DUSTY Juarez - [place] & [place] 4 13:23:53 Heart failure 28575065 Active 2023 Ingris Crase null, [place] - [facility] - [place] & [place] 4 13:24:02 Irregular heart beat 854404053 Active 2023 Ingris Crase null, [place] - [facility] - [facility] & [place] 4 13:24:23 Hypercholeste rolemia 54246977 Active 2023 Ingris Crase null, [place] [facility] [place] & [place] 4 13:24:43 Hypertensive disorder 52498821 Active 2023 Ingris Crase null, [place] [facility] [place] & [place] 4 13:25:11 Environmental allergy 920074790 Active 2023 Ingrismarine Madrigalse null, [place] - [facility] - [place] & [place] 4 13:25:48 Kidney stone 41548833 Active 2023 HILTON MELENDREZ MD [address], [place], [address] , [place] [facility] - [place] & [place] 5 14:57:09 Cyst of kidney 991397439 Active 2023 HILTON MELENDREZ MD [address], [place], [address] , [place] [facility] - [place] & [place] 4 14:06:51 Retroperitone al mass 30926680 Active 2023 HILTON MELENDREZ MD [address], [place], [address] , [place] [facility] - [place] & [place] 4 14:15:11 Problem Notes None recorded. Procedures Surgical History Date Name Laterality Status Provider Name and Address Organization Details Recorded Time 06/23/19 18 hernia repair completed Ingris Pineda [place] - [facility] - [place] & [place] 03/04/2024 13:31:46 06/23/19 08 Cataract Surgery completed Ingris Sung [place] - [facility] & [place] 03/04/2024 13:32:01 06/23/18 83 cholecystectomy completed Ingrismarine Madrigal [place] - [facility] & [place] 03/04/2024 13:27:15 06/23/18 83 excision of heart valve completed Isidra ROMAN [facility] & [place] 03/10/2024 13:34:54 repair of aortic valve completed Ingris ROMAN [facility] & [place] 03/04/2024 13:28:59 cardiac [facility] & [place] 03/10/2024 13:35:26 biopsy [facility] [place] 05/12/2024 13:33:47 Imaging Results None recorded. Procedure Notes None recorded. Medical Equipment None Reported. Allergies Allergen ID Allergen Name Allergen Category Reaction Reaction Severity Criticality Documentation Date Start Date Code Code System Note Provider Name and Address Organization Details Recorded Time 943321 Product containin g penicilli n (product) medicatio n Not available Not available Not available 03/04/2024 56222 8001 SNOMED [facility]Y [facility]arez [facility] & [place] 13:23:32 Medications Name Sig Start Date Stop Date Status Note LastModified by Organization Details LastModified Time atorvastat in 40 mg tablet TAKE 1 TABLET BY MOUTH ONCE DAILY active Not Available Not Available No t Available prednisone 10 mg tablet TAKE 1 TABLET BY MOUTH ONCE DAILY FOR 7 DAYS 11/10 completed Not Available Not Available Not Available doxycyclin e hyclate 100 mg capsule TAKE 1 CAPSULE BY MOUTH TWICE DAILY FOR 7 DAYS 11/10 completed Not Available Not Available Not Available hydrocodon e 5 mg-acetami nophen 325 mg tablet TAKE 1 TABLET BY MOUTH NEEDED EVERY 6 HOURS FOR 7 DAYS 03/10 completed Not Available Not Available Not Available ondansetro n HCl 8 mg tablet TAKE 1 TABLET BY MOUTH TWICE DAILY DIRECTED active Not Available Not Available No t Available promethazi ne 12.5 mg tablet TAKE 1 TABLET BY MOUTH 4 TIMES DAILY active Not Available Not Available No t Available amlodipine 5 mg tablet TAKE 1 TABLET BY MOUTH ONCE DAILY active Not Available Not Available No t Available bisoprolol fumarate 5 mg tablet TAKE 1/2 (ONE-HALF ) TABLET BY MOUTH ONCE DAILY active Not Available Not Available No t Available famotidine 20 mg tablet Take 1 tablet every day by oral route as directed for 30 days. active Not Available Not Available No t Available tamsulosin 0.4 mg capsule TAKE 1 CAPSULE BY MOUTH ONCE DAILY active Not Available Not Available No t Available timolol maleate 0.25 % eye drops INSTILL 1 DROP INTO LEFT EYE TWICE DAILY active Not Available Not Available No t Available warfarin 2 mg tablet TAKE 1 TABLET BY MOUTH ONCE DAILY active takes the 1 and half and the 2mg Not Available Not Available Not Available nitroglyce rin 0.4 mg sublingual tablet DISSOLVE ONE TABLET UNDER THE TONGUE EVERY 5 MINUTES NEEDED FOR CHEST PAIN. DO NOT EXCEED A TOTAL OF 3 DOSES IN 15 MINUTES active Not Available Not Available No t Available allopurino l 300 mg tablet TAKE 1 TABLET BY MOUTH ONCE DAILY DIRECTED active Not Available Not Available No t Available lisinopril 5 mg tablet TAKE 1 TABLET BY MOUTH ONCE DAILY active Not Available Not Available No t Available hydrochlor othiazide 25 mg tablet TAKE 1/2 (ONE-HALF ) TABLET BY MOUTH ONCE DAILY 05/12 completed Not Available Not Available Not Available warfarin 1 mg tablet TAKE 1 & 1/2 (ONE & ONE-HALF) TABLETS BY MOUTH ONCE DAILY active also takes the 2mg Not Available Not Available Not Available colchicine 0.6 mg tablet Take 1 tablet every day by oral route for 5 days. active Not Available Not Available No t Available enoxaparin 40 mg/0.4 mL subcutaneo us syringe INJECT 1 SYRINGE SUBCUTANE OUSLY TWICE DAILY FOR 6 DAYS 05/12 completed Not Available Not Available Not Available cholecalci ferol (vitamin D3) 10 mcg (400 unit) capsule Take by oral route. active Not Available Not Available No t Available aspirin active Not Available Not Avail able Not Available omega 3 650 mg-dha 240 mg-epa 360 mg-fish oil 1,000 mg capsule del rel Take by oral route. active Not Available Not Available No t Available Vitals Date Recorded Body height Body mass index (BMI) Body weight Body temperature Oxygen saturation Oxygen saturation in Arterial blood by Pulse oximetry Heart rate Provider Name and Address Organization Details Last Updated DateTime 5 165.1 cm 24.7 kg/m2 42592.4 7 g 97.8 [degF] 96 % 96 % 59 /min Isidra MONTANO [facility] & [place] 13:12:16 Social History Question Answer Notes LastModified by Organizat ion Details LastModified Time Tobacco Smoking Status Former Smoker QUIT 30+ YRS AGO Isidra Gonzales null, [place] [facility] - [place] & [place] 03/10/2024 13:33:31 What Is Your Level Of Caffeine Consumption? Occasional Information not available 03/10/2024 When Did You Quit Smoking? 16+yearssincel astcigarette OVER 30 YRS. Information not available 03/10/2024 What Was The Date Of Your Most Recent Tobacco Screening? 03/10/2024 Information not available 03/10/2024 At What Age Did You Start Smoking Tobacco? 15 [email or web address] Information not available 03/10/2024 How Much Tobacco Do You Smoke? 1 PPD BEFORE HE QUIT [email or web address] Information not available 03/10/2024 Has Tobacco Cessation Counseling Been Provided? No [email or web address] Information not available 03/10/2024 Sex: Male Functional Status Question Answer Note LastModified by Organizat ion Details LastModified Time Do you use any illicit or recreational drugs? No Information not available 03/04/2024 Do you or have you ever used any other forms of tobacco or nicotine? No [email or web address] Information not available 03/10/2024 What is your level of alcohol consumption? None Information not available 03/04/2024 Mental Status None recorded. Family History Relationship Description Onset Age of this Age Resolved Age Notes LastModified by Organization Details LastModified Time Father No current problems or disability [email or web address] Not available 03/04 13:26:09 Mother No current problems or disability [email or web address] Not available 03/04 13:26:09 Medical History Condition Response Hyperlipidemia Y Heart Disease Y Immunizations Vaccine Type Date Status Note Provider Nam e and Address Organization Details Recorded Time zoster recombinant 9 completed Hilton sam, [place] - [facility] - [place] & [place] 05/13/2024 09:25:51 zoster recombinant 9 completed Hilton sam, [place] [facility] [place] & [place] 05/13/2024 09:25:51 COVID-19, mRNA, LNP-S, PF, 100 mcg/0.5mL dose or 50 mcg/0.25mL dose 1 completed Hilton sam, [place] [facility] [place] & [place] 05/13/2024 09:25:51 COVID-19, mRNA, LNP-S, PF, 100 mcg/0.5mL dose or 50 mcg/0.25mL dose 1 completed Hilton Espinoza null, [place] [facility] [place] 05/13/2024 09:25:51 COVID-19, mRNA, LNP-S, PF, 100 mcg/0.5mL dose or 50 mcg/0.25mL dose 2 completed Hilton sam, [place] [facility] [place] & [place] 05/13/2024 09:25:51 COVID-19, mRNA, LNP-S, PF, 100 mcg/0.5mL dose or 50 mcg/0.25mL dose 1 completed Hilton sam, [place] [facility] - [place] & [place] 05/13/2024 09:25:51 zoster live 3 completed Isidra sam, [place] [facility] [place] & [place] 05/12/2024 13:31:33 Influenza, high-dose, trivalent, PF 6 completed Hilton sam, [place] [facility] [place] 05/13/2024 09:25:51 Td (adult), 2 Lf tetanus toxoid, preservative free, adsorbed 7 completed Isidra Gonzales [place], [place] [facility] [place] & [place] 05/12/2024 13:31:33 Hep A, adult 8 completed Hilton sam, [place] [facility] - [place] & [place] 05/13/2024 09:25:51 Past Encounters Encounter ID Performer Location Encounter Start Date Encounter Closed Date Diagnosis/Indication Diagnosis SNOMED-CT Code Diagnosis ICD10 Code Diagnosis Note [id number] Walter Parikh MD [facility] [address] [place] [address] 11/10/2024 13:01:32 11/10/2024 13:39:49 Diffuse large B-cell lymphoma 969709225 C83.30 PET scan performed on March 22, 2024. Findings of willy mass measuring 4.1 cm in the retroperit oneum. This is next to the abdominal aorta. Elevated SUV. Masses left of the abdominal aorta. Patient had biopsy performed at [facility]. Findings on pathology from April 28, 2024 of large B-cell lymphoma germinal center type. Positive for CD 20 as well as PAX5. Positive for CD 10 and BCL6. Cyclin D1 negative. Additional mutation testing has been requested. Patient with slight come uptake in inguinal lymph node on PET scan. Would stage as stage II large B-cell lymphoma. ECOG 1. Discussed with patient NCCN guidelines recommenda tion for potential mini R-CHOP. Would plan for 3-6 cycles of therapy. Patient with difficulty tolerating mini R-CHOP secondary to fatigue and functional decline. Cycle 3 of mini R-CHOP on July 09, 2024. PET scan performed after with small amount of residual uptake on July 26, 2024. Patient proceeded with radiation therapy following cycle 3 of mini R-CHOP. Patient completed radiation therapy in August 2024. Patient returns on November 10, 2024. Discussed repeat labs today. Discussed repeat PET scan in hopefully imaging surveillan ce only. Will follow-up labs and repeat imaging. Retroperit carr lymphadenopathy 194908508 R59.0 Patient recently seen by Urology following CT scan for assessment kidney stones. Kidney stone in the left kidney at 1.0 cm. Patient on imaging was noted to have soft tissue mass surroundin g the mid abdominal aorta with concern for possible lymphoma. Patient has history of abdominal aortic aneurysm and is status post endograft repair. Patient is currently on warfarin secondary to history of atrial fibrillati on. Patient has also had prior stroke. CT scan performed of the abdomen pelvis without contrast on February 18, 2024. Finding of left renal stone at 1 cm in size. Left renal cyst 6.6 x 6.4 cm. Abdominal imaging with abnormal soft tissues surroundin g the abdominal aorta extending along the left renal vessels. Area of soft tissue abnormalit y is 5.4 x 3.7 cm. No pelvic mass or inflammati on. Enlarged left inguinal lymph node at 1.6 cm. Imaging was performed at [facility]. PET scan performed on March 22, 2024. Findings of willy mass measuring 4.1 cm in the retroperit oneum. This is next to the abdominal aorta. Elevated SUV. Masses left of the abdominal aorta. Inguinal lymphadenopathy 812767775 R59.0 CT scan performed of the abdomen pelvis without contrast on February 18, 2024. Finding of left renal stone at 1 cm in size. Left renal cyst 6.6 x 6.4 cm. Abdominal imaging with abnormal soft tissues surroundin g the abdominal aorta extending along the left renal vessels. Area of soft tissue abnormalit y is 5.4 x 3.7 cm. No pelvic mass or inflammati on. Enlarged left inguinal lymph node at 1.6 cm. Imaging was performed at [facility]. Long-term current use of anticoagulant 463203706 Z79.01 Patient with long-term use of warfarin secondary to irregular heartbeat as well as congestive heart failure. Patient has had prior stroke. Uric acid level above reference range 19401311 E79.0 Labs on February 18, 2024 with elevated uric acid. Uric acid level at 10.2. Will follow-up repeat labs. Labs on June 18, 2024 with improved uric acid. Uric acid level at 5.9. Gout 67008293 M10.9 Patient with long history of gout. Patient with tophi of the left foot on the great toe. Previous treatment with colchicine . Patient returns on June 18, 2024. He has a gout flare-up of the left foot. He has had gout in the past. He is taking Allopurino l daily. Will send prescripti on for colchicine to take for flare up. Patient returns on July 09, 2024. He is tolerating treatment well. At his previous visit he had a gout flare-up of the left foot. This has resolved. History of aortic valve replacement 7028654942 100 Z95.4 Patient with history of tetralogy of Fallot. Aortic valve replacemen t 40 years ago. Systolic ejection murmur. Patient continues on warfarin secondary to mechanical heart valve. Antineopla stic chemotherapy regimen 660919393 Z51.11 Cycle 1 of mini R-CHOP on May 28, 2024.Cycle 2 of mini R-CHOP on June 18, 2024.Cycle 3 of mini R-CHOP on July 09, 2024. Constipation 89994855 K5 9.00 Patient returns on July 09, 2024. He did have some constipati on but this resolved MiraLax. Health Concerns Section Related Observation LastModified by Organization Detai ls LastModified Time None Recorded Concern Status LastModified by Organization Details LastModified Time None Recorded Payers Encounter Date Sequence Insurance Name Policy Number Policy Méndez Covered Member ID Méndez Member ID Guarantor Name 11/10/2024 1 [employer] (MEDICARE REPLACEMENT/A DVANTAGE - PPO) Jose G Louis [id number] Jose G Louis Notes Date Note Type Note Provider Name and Address Organization Details Recorded Time 11/10/2024 text/html 78 yo M returns for evaluation of large b cell lymphoma. Patient recently seen by Urology following CT scan for assessment kidney stones. Kidney stone in the left kidney at 1.0 cm. Patient on imaging was noted to have soft tissue mass surrounding the mid abdominal aorta with concern for possible lymphoma. Patient has history of abdominal aortic aneurysm and is status post endograft repair. Patient is currently on warfarin secondary to history of atrial fibrillation. Patient has also had prior stroke. CT scan performed of the abdomen pelvis without contrast on February 18, 2024. Finding of left renal stone at 1 cm in size. Left renal cyst 6.6 x 6.4 cm. Abdominal imaging with abnormal soft tissues surrounding the abdominal aorta extending along the left renal vessels. Area of soft tissue abnormality is 5.4 x 3.7 cm. No pelvic mass or inflammation. Enlarged left inguinal lymph node at 1.6 cm. Imaging was performed at [facility]. Labs on February 18, 2024 with normal liver function testing. GFR greater than 60. Creatinine 1.15. Uric acid elevated at 10.2. PET scan performed on March 22, 2024. Findings of willy mass measuring 4.1 cm in the retroperitoneum. This is next to the abdominal aorta. Elevated SUV. Masses left of the abdominal aorta. Patient had biopsy performed at [facility]. Findings on pathology from April 28, 2024 of large B-cell lymphoma germinal center type. Positive for CD 20 as well as PAX5. Positive for CD 10 and BCL6. Cyclin D1 negative. Additional mutation testing has been requested. Patient with slight come uptake in inguinal lymph node on PET scan. Would stage as stage II large B-cell lymphoma. ECOG 1. Discussed with patient NCCN guidelines recommendation for potential mini R-CHOP. Would plan for 3-6 cycles of therapy. Will follow-up tolerability. Potential need for radiation. Patient returns on July 09, 2024. He is tolerating treatment well. At his previous visit he had a gout flare-up of the left foot. This has resolved. He did have some constipation but this resolved MiraLax. He has had some acid reflux. Cycle 3 of mini R-CHOP on July 09, 2024. PET scan performed after with small amount of residual uptake on July 26, 2024. Patient proceeded with radiation therapy following cycle 3 of mini R-CHOP. Patient completed radiation therapy in August 2024. Patient returns on November 10, 2024. Discussed repeat labs today. Discussed repeat PET scan in hopefully imaging surveillance only. Will follow-up labs and repeat imaging. Walter Parikh MD [address], [place], [address], [place] [facility] [place] & [place] 11/10/2024 13:58:04
--- OUTSIDE RECORDS SUMMARY | 2025-01-06 10:48 | XMS_ITS | Referral Summary ---
Author Organization [facility] ([place], [place], [place], [place]) Address [address] [place] [address] Care Team Providers Care Poultry Offal Icer Name Role Phone Pietro Martinez MD Primary Care Provider [phone] Simeon Guerrero MD Unavailable [phone] Allergies Active Allergy Reactions Criticality Noted Date [...] SVG-RCA but patent RCA stents. h/o remote [place]. CABG 1982. Hyperlipidemia 04/17/2021 06/20/2023 Typical atrial flutter 03/05/202112/19 Overview (06/13/2022): Diagnosis 01/2021. Single cardioversion. Osteoporosis 06/12/2020 05/22/2024 Social History Tobacco Use Types Packs/Day Years Used Date Smoking Tobacco: Former Cigarettes Q uit: 1983 Smokeless Tobacco: Never Tobacco Cessation:Counseling Given: Not Answered Alcohol Use Standard Drinks/Week Comments Never 0 (1 standard drink = 0.6 oz pur e alcohol) Family and Community Support Answer Fran e Recorded Help with Day to Day Activities Not on file 07/05/2023 Feeling Lonely or Isolated Not on file 07/05 Educational Attainment Answer Date Marco Antonio rded Speak language other than Kyrgyz at home Not on file 07/05/2023 Want [...] Description 01/24/2025 11:00 AM EDT Office Visit [facility] Electrophysiology [address] [place], [place] [address] Joanne Card MD [address] [place] [address] [place] [address] 02/15/2025 11:00 AM EDT Office Visit [facility] Cardiology [address] [place] [address] Arnulfo Luciano APRN [address] [place] [address] [place] [address] Insurance [employer] MEDICARE [facility] MEDIC[facility] PPO Advance Directives For more information, please contact: [phone] Documents on File Type Date Recorded Patient Rn Stars Expl anation Advance Directives and Livin g Will 12/19/2022 5:33 AM * Full Code (Latest Code Status on File) Date Activated Date Inactivated Comments 12/19/2022 10:35 AM 12/20/2022 4:25 AM * Full Code Date Activated Date Inactivated Comments 12/18/2022 8:18 PM 12/19/2022 10:35 AM Care Teams Poultry Offal Icer Relationship Specialty Start Date End Date Pietro Martinez MD [address] [place] [place] [address] PCP - General Family Medicine 06/19/22 Simeon Guerrero MD [address] [facility] [address] [place], [place] [id number] Referring Physician Cardiology 12/19/22
--- NOTE | 2025-01-06 10:49 | CT_ITS ---
FINAL REPORT TECHNIQUE: IV contrast enhanced exam This study was performed with techniques to keep radiation doses as low as reasonably achievable, (ALARA). Individualized dose reduction techniques using automated exposure control or adjustment of mA and/or kV according to the patient's size were employed. CLINICAL HISTORY: LT SIDE ABD PAIN COMPARISON: 02/18/2024 FINDINGS: CT ABDOMEN PELVIS WITH CONTRAST: Abdomen: A small hiatal hernia is present. There are bilateral renal cysts, the largest on the left measuring 6.6 cm in diameter, stable. There is stable left nephrolithiasis, with improved right nephrolithiasis. No evidence of bowel obstruction is seen. 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 This mass overall measures 4.0 x 1.3 cm in size, similar to the prior exam of 02/18/2024 when measured in a similar fashion. It is unknown if it has been demonstrated to be inflammatory or neoplastic. No bowel obstruction or fluid collection is seen. Pelvis: Mild diverticulosis is present. There is moderate prostatic enlargement. The appendix is normal in appearance. There is some oval soft tissue nodule overlying the left psoas muscle, that measures up to 19 mm, which could represent a lymph node. IMPRESSION: 1. No acute findings. 2. Stable appearance of the infiltrative soft tissue surrounding the aorta at the level of the renal arteries. Reviewed, Interpreted and Dictated by Leann Mccoy MD Transcribed by [employer] [facility] and [facility]
--- OUTSIDE RECORDS SUMMARY | 2025-01-06 10:49 | XMS_ITS | Encounter Summary ---
Author Organization [employer] ([place], [place], [place], [place]) Address [address] [place] [address] Care Team Providers Care Certified Recreational Therapist Name Role Phone Pietro Martinez MD Primary Care Provider [phone] Saw Guerrero MD Unavailable [phone] Encounter Details Date Type Department Care Team (Late st Contact Info) Description 02/21/2021 Transcribed Document [facility] [place] [facility] [address] [place] [address] ProviderDoyle MD [facility] [place] [address] Social History Tobacco Use Types Packs/Day Years Used Date Smoking Tobacco: Never Assessed Sex and Gender Information Value Date Recorded Sex Assigned at Not on file Legal Sex Male 5:43 PM CDT Gender Identity Not on file Sexual Orientation Not on file documented as of this encounter Miscellaneous Notes * Cerner Conversion Note - Doyle Andrea MD - 02/21/2021 6:29 PM CDT [facility] [place] [address] JOSE G HOGUE :1945 Visit Time:02/21/2021 Your Visit Summary Your Care Team Admitting Physician - SAW GUERRERO MD-CAR Attending Physician - ASW GUERRERO MD-CAR Primary Care Physician - NATALIO WEBSTER MD-[facility] Referring Physician - NATALIO WEBSTER MD-FAM Your Diagnosis Typical atrial flutter, Typical atrial flutter These Are Your Goals No qualifying data available. Discharge Vitals Temperature 36.1 ??C Heart Rate (Monitored) 72 Respiratory Rate 16 Blood Pressure 100/62 What to do next Instructions From Your Care Team No driving for [address] Guerrero for an appointment. Follow-Up Appointments Follow Up with SAW GUERRERO MD-BLACK When Within 1 month Comments Please call for appointment Where: [address] [facility] [address] [place] [address]- Medications What How Much When Instructions Next Dose aspirin 81 Milligram(s) Oral Every Day atorvastatin (atorvastatin 40 mg oral tablet) Oral Every Day bisoprolol 5 Milligram(s) Oral Every Day calcium-vitamin D (Citracal Calcium + D Slow Release 1200) 2 Tablet(s) Oral Every Morning fenofibrate (TriCor 145 mg oral tablet) 1 Tablet(s) Oral Every Day hydrochlorothiazide-triamterene (Dyazide 37.5-25 mg oral capsule) 1 Capsule(s) Oral Every Day lisinopril (lisinopril 2.5 mg oral tablet) 1 Tablet(s) Oral Every Day nitroglycerin (Nitrostat 0.4 mg sublingual tablet) 1 Tablet(s) SubLINgual Every 5 minutes tamsulosin 0.4 Milligram(s) Oral Every Day timolol ophthalmic (timolol 0.25% ophthalmic solution) 1 Drop(s) Eyes Both Two Times A Day warfarin (Coumadin) 2 Milligram(s) Oral Every Day Take your medications faithfully. Do NOT skip medication. Do NOT stop taking medications without the direction of a physician. Carry a list of your medications with you at all times, and take this medication list with you to your first follow up visit. Report any side effects. Avoid herbal remedies unless discussed with your physician. As part of your treatment plan, your physician may have prescribed a limited course of a controlled substance. This medication may be given to help people with moderate or severe pain or for other medical conditions, but there are risks involved with treatment. Common side effects may include nausea, constipation, drowsiness, sweating, itching, dry mouth, and rash. More serious side effects may include cognitive and motor impairment, like problems with thinking, concentrating, alertness, and movement (e.g. slowed reflexes), and driving and operating heavy machinery can be dangerous. It is important for you to talk to your physician if you have these side effects or questions. These controlled substances can produce physical dependence and be habit-forming if taken for an extended period of time, which means that the body has gotten used to them and may experience withdrawal symptoms if they are abruptly stopped. Withdrawal symptoms can include runny nose, sweating, goose bumps, diarrhea, abdominal cramping, rapid heartbeat, difficulty sleeping, and nervousness. Please dispose of unused and medications per your retail pharmacy guidance. Allergies penicillin (Rash) Immunizations This Visit No Immunizations Found Education Materials Atrial Flutter Atrial flutter is a type of abnormal heart rhythm (arrhythmia). The heart has an electrical system that tells it how to beat. In atrial flutter, the signals move rapidly in the top chambers of the heart (the atria). This makes your heart beat very fast. Atrial flutter can come and go, or it can be permanent. The goal of treatment is to prevent blood clots from forming, control your heart rate, or restore your heartbeat to a normal rhythm. If this condition is not treated, it can cause serious problems, such as a weakened heart muscle (cardiomyopathy) or a stroke. What are the causes? This condition is often caused by conditions that damage the heart's electrical system. These include: ??? Heart conditions and heart surgery. These include heart attacks and open-heart surgery. ??? Lung problems, such as COPD or a blood clot in the lung (pulmonary embolism, or PE). ??? Poorly controlled high blood pressure (hypertension). ??? Overactive thyroid (hyperthyroidism). ??? Diabetes. In some cases, the cause of this condition is not known. What increases the risk? You are more likely to develop this condition if: ??? You are an elderly adult. ??? You are a man. ??? You are overweight (obese). ??? You have obstructive sleep apnea. ??? You have a family history of atrial flutter. ??? You have diabetes. ??? You drink a lot of alcohol, especially binge drinking. ??? You use drugs, including cannabis. ??? You smoke. What are the signs or symptoms? Symptoms of this condition include: ??? A feeling that your heart is pounding or racing (palpitations). ??? Shortness of breath. ??? Chest pain. ??? Feeling dizzy or light-headed. ??? Fainting. ??? Low blood pressure (hypotension). ??? Fatigue. ??? Tiring easily during exercise or activity. In some cases, there are no symptoms. How is this diagnosed? This condition may be diagnosed with: ??? An electrocardiogram (ECG) to check electrical signals of the heart. ??? An ambulatory alarm security or surveillance monitor to record your heart's activity for a few days. ??? An echocardiogram to create pictures of your heart. ??? A transesophageal echocardiogram (CAN) to create even better pictures of your heart. ??? A stress test to check your blood supply while you exercise. ??? Imaging tests, such as a CT scan or chest X-ray. ??? Blood tests. How is this treated? Treatment depends on underlying conditions and how you feel when you experience atrial flutter. This condition may be treated with: ??? Medicines to prevent blood clots or to treat heart rate or heart rhythm problems. ??? Electrical cardioversion to reset the heart's rhythm. ??? Ablation to remove the heart tissue that sends abnormal signals. ??? Left atrial appendage closure to seal the area where blood clots can form. In some cases, underlying conditions will be treated. Follow these instructions at home: Medicines ??? Take cerd-lhw-muezhct and prescription medicines only as told by your health care provider. ??? Do not take any new medicines without talking to your health care provider. ??? If you are taking blood thinners: ? Talk with your health care provider before you take any medicines that contain aspirin or NSAIDs, such as ibuprofen. These medicines increase your risk for dangerous bleeding. ? Take your medicine exactly as told, at the same time every day. ? Avoid activities that could cause injury or bruising, and follow instructions about how to prevent falls. ? Wear a medical alert bracelet or carry a card that lists what medicines you take. Lifestyle ??? Eat heart-healthy foods. Talk with a dietitian to make an eating plan that is right for you. ??? Do not use any products that contain nicotine or tobacco, such as cigarettes, e-cigarettes, and chewing tobacco. If you need help quitting, ask your health care provider. ??? Do not drink alcohol. ??? Do not use drugs, including cannabis. ??? Lose weight if you are overweight or obese. ??? Exercise regularly as instructed by your health care provider. General instructions ??? Do not use diet pills unless your health care provider approves. Diet pills may make heart problems worse. ??? If you have obstructive sleep apnea, manage your condition as told by your health care provider. ??? Keep all follow-up visits as told by your health care provider. This is important. Contact a health care provider if you: ??? Notice a change in the rate, rhythm, or strength of your heartbeat. ??? Are taking a blood thinner and you notice more bruising. ??? Have a sudden change in weight. ??? Tire more easily when you exercise or do heavy work. Get help right away if you have: ??? Pain or pressure in your chest. ??? Shortness of breath. ??? Fainting. ??? Increasing sweating with no known cause. ??? Side effects of blood thinners, such as blood in your vomit, stool, or urine, or bleeding that cannot stop. ??? Any symptoms of a stroke. BE FAST is an easy way to remember the main warning signs of a stroke: ? B - Balance. Signs are dizziness, sudden trouble walking, or loss of balance. ? E - Eyes. Signs are trouble seeing or a sudden change in vision. ? F - Face. Signs are sudden weakness or numbness of the face, or the face or eyelid drooping on one side. ? A - Arms. Signs are weakness or numbness in an arm. This happens suddenly and usually on one side of the body. ? S - Speech. Signs are sudden trouble speaking, slurred speech, or trouble understanding what people say. ? T - Time. Time to call emergency services. Write down what time symptoms started. ??? Other signs of a stroke, such as: ? A sudden, severe headache with no known cause. ? Nausea or vomiting. ? Seizure. ??? These symptoms may represent a serious problem that is an emergency. Do not wait to see if the symptoms will go away. Get medical help right away. Call your local emergency services (911 in the [place] Do not drive yourself to the hospital. Summary ??? Atrial flutter is an abnormal heart rhythm that can give you symptoms of palpitations, shortness of breath, or fatigue. ??? Atrial flutter is often treated with medicines to keep your heart in a normal rhythm and to prevent a stroke. ??? Get help right away if you cannot catch your breath, or have chest pain or pressure. ??? Get help right away if you have signs or symptoms of a stroke. This information is not intended to replace advice given to you by your health care provider. Make sure you discuss any questions you have with your health care provider. Document Revised: 12/01/2019 Document Reviewed: 12/01/2019 [employer] Patient Education ?? 2020 [employer]. Electrical Cardioversion Electrical cardioversion is the delivery of a jolt of electricity to restore a normal rhythm to the heart. A rhythm that is too fast or is not regular keeps the heart from pumping well. In this procedure, sticky patches or metal paddles are placed on the chest to deliver electricity to the heart from a device. This procedure may be done in an emergency if: ??? There is low or no blood pressure as a result of the heart rhythm. ??? Normal rhythm must be restored as fast as possible to protect the brain and heart from further damage. ??? It may save a life. This may also be a scheduled procedure for irregular or fast heart rhythms that are not immediately life-threatening. Tell a health care provider about: ??? Any allergies you have. ??? All medicines you are taking, including vitamins, herbs, eye drops, creams, and wdyq-qga-zfmtgvc medicines. ??? Any problems you or family members have had with anesthetic medicines. ??? Any blood disorders you have. ??? Any surgeries you have had. ??? Any medical conditions you have. ??? Whether you are or may be . What are the risks? Generally, this is a safe procedure. However, problems may occur, including: ??? Allergic reactions to medicines. ??? A blood clot that breaks free and travels to other parts of your body. ??? The possible return of an abnormal heart rhythm within hours or days after the procedure. ??? Your heart stopping (cardiac arrest). This is rare. What happens before the procedure? Medicines ??? Your health care provider may have you start taking: ? Blood-thinning medicines (anticoagulants) so your blood does not clot as easily. ? Medicines to help stabilize your heart rate and rhythm. ??? Ask your health care provider about: ? Changing or stopping your regular medicines. This is especially important if you are taking diabetes medicines or blood thinners. ? Taking medicines such as aspirin and ibuprofen. These medicines can thin your blood. Do not take these medicines unless your health care provider tells you to take them. ? Taking cjkc-zak-ippldyh medicines, vitamins, herbs, and supplements. General instructions ??? Follow instructions from your health care provider about eating or drinking restrictions. ??? Plan to have someone take you home from the hospital or clinic. ??? If you will be going home right after the procedure, plan to have someone with you for 24 hours. ??? Ask your health care provider what steps will be taken to help prevent infection. These may include washing your skin with a germ-killing soap. What happens during the procedure? An IV will be inserted into one of your veins. ??? Sticky patches (electrodes) or metal paddles may be placed on your chest. ??? You will be given a medicine to help you relax (sedative). ??? An electrical shock will be delivered. The procedure may vary among health care providers and hospitals. What can I expect after the procedure? Your blood pressure, heart rate, breathing rate, and blood oxygen level will be monitored until you leave the hospital or clinic. ??? Your heart rhythm will be watched to make sure it does not change. ??? You may have some redness on the skin where the shocks were given. Follow these instructions at home: ??? Do not drive for 24 hours if you were given a sedative during your procedure. ??? Take tmvz-fne-pzzpvfd and prescription medicines only as told by your health care provider. ??? Ask your health care provider how to check your pulse. Check it often. ??? Rest for 48 hours after the procedure or as told by your health care provider. ??? Avoid or limit your caffeine use as told by your health care provider. ??? Keep all follow-up visits as told by your health care provider. This is important. Contact a health care provider if: ??? You feel like your heart is beating too quickly or your pulse is not regular. ??? You have a serious muscle cramp that does not go away. Get help right away if: ??? You have discomfort in your chest. ??? You are dizzy or you feel faint. ??? You have trouble breathing or you are short of breath. ??? Your speech is slurred. ??? You have trouble moving an arm or leg on one side of your body. ??? Your fingers or toes turn cold or blue. Summary ??? Electrical cardioversion is the delivery of a jolt of electricity to restore a normal rhythm to the heart. ??? This procedure may be done right away in an emergency or may be a scheduled procedure if the condition is not an emergency. ??? Generally, this is a safe procedure. ??? After the procedure, check your pulse often as told by your health care provider. This information is not intended to replace advice given to you by your health care provider. Make sure you discuss any questions you have with your health care provider. Document Revised: 01/10/2020 Document Reviewed: 01/10/2020 [employer] Patient Education ?? 2020 [employer] Emergency Awareness and Preventative Care STROKE is an EMERGENCY Every Minute Counts Act FAST and Check for these signs: FACE Does the face look uneven? ARM Does one arm drift down? SPEECH Does their speech sound strange? TIME Call at any sign of stroke Stroke Risk Factors Atrial Fibrillation (irregular heartbeat) Diabetes Family history of stroke Heart Disease Heavy alcohol use High Blood Pressure High Cholesterol Physical inactivity and obesity Smoking Cigarette Smoking The facts are clear, cigarette smoking will shorten your life. Smoking can cause many illnesses along the way. As a healthcare provider, we recommend that you stop smoking. Assistance with quitting is available by contacting 6-863-LZMANOW. This is a free resource providing counseling, support, and referral. Or you may contact your personal physician. National Suicide Prevention Lifeline: The National Suicide Prevention Lifeline is a national network of local crisis centers that provides free and confidential emotional support to people in suicidal crisis or emotional distress 24 hours a day, 7 days a week. Don't Wait! Stop a Heart Attack Before it Starts What is a heart attack? A heart attack is damage or to a part of the heart from severely decreased or lack of blood flow to the heart. Over time, arteries can become narrow from the buildup of fat and cholesterol, which is called plaque. The plaque can rupture causing a blood clot to form. When the blood clot forms, the artery can become severely narrowed or completely blocked, causing a heart attack. Heart attack is the leading cause of in the [place]. 85% of muscle damage occurs within the first 2 hours. Delay in the recognition of heart attack symptoms increases the chances of . Know the early symptoms of a heart attack: Nausea Feeling of fullness in chest Jaw Pain Pain that travels down one or both arms Fatigue/being tired Anxiety Back Pain Chest pressure, squeezing, or discomfort Shortness of breath Sweating, or a cold sweat Feeling of impending doom There are unusual signs of a heart attack, too! Women, the elderly, and diabetics may present with atypical symptoms: Fainting/dizziness Weakness Confusion Risk Factors for a Heart Attack Some heart disease risk factors, such as age and family history, cannot be changed. Others, like smoking and lack of exercise, can be changed. Smoking High Cholesterol High Blood Pressure Family History Obesity Age Gender (Males are at higher risk) Lack of Exercise Diabetes Diet Stress Excessive Alcohol Intake If you or someone you know is experiencing the signs and symptoms of a heart attack, DON???T DELAY. Call immediately and seek help. If someone collapses, perform CPR! Do not attempt to drive if you are having symptoms of heart attack. Hands-Only CPR Why Hands-Only CPR? Hands-Only CPR has been shown to be as effective as conventional CPR for cardiac arrests that occur outside of a hospital. Survival depends on immediately receiving CPR from someone nearby. How do you perform Hands-Only CPR? There are two easy steps: Call if you see a teen or adult collapse Push hard and fast in the center of the chest at a beat of 100 beats per minute. Save a life! 4 WAYS TO GET AHEAD OF SEPSIS SEPSIS is a MEDICAL EMERGENCY. Time matters! Infections put you and your family at risk for a life-threatening condition called sepsis. Sepsis is the body's extreme response to an infection. It is life-threatening, and without timely treatment, sepsis can rapidly lead to tissue damage, organ failure, and . Sepsis happens when an infection you already have-in your skin, lungs, urinary tract or somewhere else-triggers a chain reaction throughout your body. 1 PREVENT INFECTIONS Take good care of chronic conditions. Talk to your doctor about getting the recommended vaccines. 2 PRACTICE GOOD HYGIENE Wash your hands frequently. Keep cuts or open sores clean and covered until they are healed. 3 KNOW THE SYMPTOMS Confusion or disorientation Shortness of breath High heart rate Fever, shivering, or feeling very cold Extreme pain or discomfort Clammy or sweaty skin 4 ACT FAST Get medical care IMMEDIATELY if you suspect sepsis or if you have an infection that is not getting better or is getting worse. To learn more about sepsis and how to prevent infections, visit www.cdc.gov/sepsis. Test Results Laboratory or Other Results This Visit (last charted value for your 02/21/2021 visit) Microbiology 02/21/2021 3:51 PM SARS-CoV-2 (COVID19 PCR): Negative Echo 02/21/2021 4:54 PM EC CAN Complete: EC CAN Complete Patient Name:JOSE G HOGUE I have received and understand this information and was given the opportunity to ask questions. Patient/Medical Billing Assistant Name: Patient/Medical Billing Assistant Signature: Relationship to Patient: Clinician/Hospital Medical Billing Assistant Signature: Date: documented in this encounter Plan of Treatment Upcoming Encounters Date Type Department Care Team (Late st Contact Info) Description 01/24/2025 11:00 AM EDT Office Visit [facility] Electrophysiology [address] [place], [place] [phone] Joanne Card MD [address] [place] [id number] 02/15/2025 11:00 AM EDT Office Visit [facility] Cardiology [address] [place], [place] [phone] Arnulfo Luciano APRN [address] [place], [place] [id number] documented as of this encounter Visit Diagnoses Not on filedocumented in this encounter Care Teams Certified Recreational Therapist Relationship Specialty Start Date End Date Pietro Martinez MD [address] [facility] [place] [address] PCP - General Family Medicine 06/19/22 Saw Guerrero MD [address] [place], [place] [id number] Referring Physician Cardiology 12/19/22 documented as of this encounter
--- OUTSIDE RECORDS SUMMARY | 2025-01-06 10:49 | XMS_ITS | Encounter Summary ---
Author Organization [employer] ([place], [place], [place], [place]) Address [address] [place] [address] Care Team Providers Care Senior Coldfusion Developer Name Role Phone Pietro Martinez MD Primary Care Provider [phone] Simeon Guerrero MD Unavailable [phone] Encounter Details Date Type Department Care Team (Late st Contact Info) Description 02/21/2021 Transcribed Document [facility] [place] Family Medicine [address] [place] [address] ProviderDoyle MD [address] [place] [address] Social History Tobacco Use Types Packs/Day Years Used Date Smoking Tobacco: Never Assessed Sex and Gender Information Value Date Recorded Sex Assigned at Not on file Legal Sex Male 5:43 PM CDT Gender Identity Not on file Sexual Orientation Not on file documented as of this encounter Miscellaneous Notes * Cerner Conversion Note - Doyle ProviderMD - 02/21/2021 4:02 PM CDT Pre Procedure Adult Entered On: 02/21/2021 16:09 EDT Performed On: 02/21/2021 16:02 EDT by INGRID LUX RN Height and Weight, Clinical Dosing Height Source : Measured Height Entry Format : [place] Height, Feet : 5 ft(Converted to: 152 cm, 60 Inch) Height, Inches : 5 Inch(Converted to: 0 ft 5 Inch, 12.70 cm) Clinical Height : 165.1 cm Weight Source : Standing scale Weight Entry Format : [place] Clinical Dosing Weight : 71.82 kg Weight, Pounds : 158 lb Body Surface Area (BSA) : 1.79 m2 Body Mass Index : 26.3 kg/m2 (HI) [place] Body Weight : 61 kg INGRID LUX RN - 02/21/2021 16:02 EDT Health Histories Smokeless Tobacco Status : Smokeless tobacco user within last 30 days INGRID LUX RN - 02/21/2021 16:02 EDT Social History (As Of: 02/21/2021 16:09:13 EDT) Tobacco: Use in Last 12 Months: No. Smoking Status Former smoker. Last Used: quit smoking in 1979. (Last Updated: 04/27/2014 21:57:18 EST by Matt Fisher Rn) Alcohol: Use in Last 12 Months: No. (Last Updated: 04/27/2014 21:57:23 EST by Matt Fisher Rn) Alcohol Use History No. (Last Updated: 12/03/2017 10:04:10 EDT by Armida Vaca RN) Substance Abuse: Drug Use Hx: No. Use in Last 12 Months: No. (Last Updated: 04/27/2014 21:58:17 EST by Matt Fisher Rn) Nutrition/Health: Regular (Last Updated: 04/27/2014 21:58:05 EST by Matt Fisher Rn) Exercise: Exercise frequency: 3-4 times/week. (Last Updated: 04/27/2014 21:57:45 EST by Matt Fisher Rn) Home/Environment: Lives with Spouse. Living situation: Home/Independent. (Last Updated: 04/27/2014 21:57:58 EST by Matt Fisher Rn) Employment/School: Retired (Last Updated: 04/27/2014 21:57:33 EST by Matt Fisher Rn) Infectious Disease History Has the patient ever been tested for COVID-19? : Yes, Patient stated results Negative Date of COVID-19 test known? : Yes Date of COVID-19 Test : 02/21/2021 EDT Does patient have symptoms of COVID-19? : No COVID19 Screening : No Experiencing Infectious Disease Symptoms : No symptoms Physical contact outside [place] in the last 30 days : No Infectious Disease History : Influenza, Measles, Mumps SHERROW, INGRID S, RN - 02/21/2021 16:02 EDT COVID19 PreProcedure Screening Is this an Emergent or Add on Procedure? : Yes INGRID LUX RN - 02/21/2021 16:02 EDT Anesthesia/Transfusion History Family History of Anesthesia Reaction : Prior transfusion without reaction Transfusion History : Prior anesthesia without reaction Family History of Anesthesia Reaction : None INGRID LUX RN - 02/21/2021 16:02 EDT Functional Assessment Living Situation : Home Current Home Treatments : None INGRID LUX RN - 02/21/2021 16:02 EDT [place] Suicide Severity Rating Scale (C-SSRS) CSSRS Past Month Wish to be : No CSSRS Past Month Suicidal Thoughts : No CSSRS Lifetime Suicide Behavior : No Suicide Severity Rating Score : 0 Suicide Severity Rating : No Additional Care Required at this time INGRID LUX RN - 02/21/2021 16:02 EDT Psychosocial History Currently in Unsafe Situation : No INGRID LUX RN - 02/21/2021 16:02 EDT Advance Directive Patient has Advance Directive *Q : No, patient refuses Advance Directive information INGRID LUX RN - 02/21/2021 16:02 EDT General Info Support Person/Pt Rep Name : jonelle caraballo spouse [phone] Want Family/Rep/Phys Notified of Admit : No Emergency Contact #1 : Jonelle Caraballo Emergency Contact #1 Phone Number : [phone] Chief Complaint : Here gor cardioversion Information Obtained From : Patient Primary Language : British Communication Barrier : None Gas Line Installer Needed : No INGRID LUX RN - 02/21/2021 16:02 EDT Vital Measurements Temperature Source : Oral Temperature Mode : Fahrenheit Temperature, Fahrenheit : 96.9 Deg F Clinical Temperature, C : 36.1 Deg C Pulse Method : Non-Invasive BP Device Peripheral Pulse Rate : 100 bpm Pulse Rhythm : Irregular Respiratory Rate : 20 Breaths/Min Blood Pressure Location : Arm, right upper Systolic Blood Pressure : 176 mmHg (HI) Diastolic Blood Pressure : 99 mmHg (HI) INGRID LUX RN - 02/21/2021 16:02 EDT Sleep Apnea Risk Assmt Hx of Obstructive Sleep Apnea Diagnosis : No Age over 50 Years Old : Yes Gender Male : Yes INGRID LUX RN - 02/21/2021 16:02 EDT Robert Scale Robert Sensory Perception : No impairment Robert Moisture : Rarely moist Robert Activity : Walks frequently Robert Mobility : No limitation Robert Nutrition : Excellent Robert Friction and Shear : No apparent problem Robert Score : 23 INGRID LUX RN - 02/21/2021 16:02 EDT Fall Risk Scales ABCs Fall Injury Risk Identification : None GOMES Hx Falls Immediate/Within 3 Months : No Gomes Secondary Diagnosis : No GOMES Use of Ambulatory Aid : None GOMES IV Therapy or IV Access : Yes Gomes Gait/Transferring : Normal, bedrest, immobile Gomes Mental Status : Oriented to own ability Gomes Fall Risk Score : 20 GOMES Fall Scale Risk Level : 0-24 Low Risk [place] Fall Interventions : Adequate lighting, Assistive devices within reach, Bed in low position, Call device within reach INGRID LUX RN - 02/21/2021 16:02 EDT Electronically signed by Rosalinda [facility] Conversion Clinical Sales Consultant Cerner at 10/10/2022 9:05 AM CDT documented in this encounter Plan of Treatment Upcoming Encounters Date Type Department Care Team (Late st Contact Info) Description 01/24/2025 11:00 AM EDT Office Visit [facility] Electrophysiology [address] [place] [address] [place] [address] [place] [address] [place] [phone] 02/15/2025 11:00 AM EDT Office Visit [facility] Cardiology [address] [place] [address] Arnulfo Luciano APRN [address] [place] [address] [address] documented as of this encounter Visit Diagnoses Not on filedocumented in this encounter Care Teams Senior Coldfusion Developer Relationship Specialty Start Date End Date Pietro Martinez MD [address] [place] [address] PCP - General Family Medicine 06/19/22 Simeon Guerrero MD [address] [address] Referring Physician Cardiology 12/19/22 documented as of this encounter
--- OUTSIDE RECORDS SUMMARY | 2025-01-06 10:49 | XMS_ITS | Encounter Summary ---
Author Organization [employer] ([place], [place], [place], [place]) Address [address] [place] [address] Care Team Providers Care Marketing Automation Specialist Name Role Phone Pietro Martinez MD Primary Care Provider [phone] Simeon Guerrero MD Unavailable [phone] Encounter Details Date Type Department Care Team (Late st Contact Info) Description 02/21/2021 Transcribed Document [facility] [place] Family Medicine [address] [place] [address] ProviderDoyle MD [address] [place] [address] Social History Tobacco Use Types Packs/Day Years Used Date Smoking Tobacco: Never Assessed Sex and Gender Information Value Date Recorded Sex Assigned at Not on file Legal Sex Male 5:43 PM CDT Gender Identity Not on file Sexual Orientation Not on file documented as of this encounter Miscellaneous Notes * Cerner Conversion Note - Doyle ProviderMD - 02/21/2021 6:26 PM CDT Patient Education Materials Follows: Atrial Flutter Atrial flutter is a type [...] signals of the heart. ??? An ambulatory rn cardiac cath to record your heart's activity for a [...] these instructions at home: Medicines ??? Take ioqj-pcx-hujrcfu and prescription medicines only as told by [...] provider. Document Revised: 12/01/2019 Document Reviewed: 12/01/2019 [employer] Patient Education ? 2020 [employer] Emergency Medicine Electrical Cardioversion Electrical cardioversion is the delivery [...] including vitamins, herbs, eye drops, creams, and lbgw-kfl-jzbmbnw medicines. ??? Any problems you or family [...] tells you to take them. ? Taking wuzs-omo-sfxwmnx medicines, vitamins, herbs, and supplements. General instructions [...] a sedative during your procedure. ??? Take wfrn-hft-ketwgyh and prescription medicines only as told by [...] provider. Document Revised: 01/10/2020 Document Reviewed: 01/10/2020 [employer] Patient Education ? 2020 [employer] documented in this encounter Plan of Treatment Upcoming Encounters Date Type Department Care Team (Late st Contact Info) Description 01/24/2025 11:00 AM EDT Office Visit [facility] Electrophysiology [address] [place] [phone] Joanne Card MD [address] [place] [address] [place] [phone] 02/15/2025 11:00 AM EDT Office Visit [facility] Cardiology [address] [place], [place] [phone] Arnulfo Luciano APRN [address] [place], [place] [phone] documented as of this encounter Visit Diagnoses Not on filedocumented in this encounter Care Teams Marketing Automation Specialist Relationship Specialty Start Date End Date Pietro Martinez MD [address] [place] [address] PCP - General Family Medicine 06/19/22 Simeon Guerrero MD [address] [place] [address] [address] Referring Physician Cardiology 12/19/22 documented as of this encounter
--- OUTSIDE RECORDS SUMMARY | 2025-01-06 10:49 | XMS_ITS | Encounter Summary ---
Author Organization [employer] ([place], [place], [place], [place]) Address [address] [place] [address] Care Team Providers Care Foundry Patternmaker Name Role Phone Pietro Martinez MD Primary Care Provider Simeon Guerrero MD Unavailable [phone] Encounter Details Date Type Department Care Team (Late st Contact Info) Description 02/21/2021 Transcribed Document [facility] [place] [address] [place] [address] ProviderDoyle MD [address] [place] [address] Social History Tobacco Use Types Packs/Day Years Used Date Smoking Tobacco: Never Assessed Sex and Gender Information Value Date Recorded Sex Assigned at Not on file Legal Sex Male 5:43 PM CDT Gender Identity Not on file Sexual Orientation Not on file documented as of this encounter Miscellaneous Notes * Cerner Conversion Note - Doyle ProviderMD - 02/21/2021 6:27 PM CDT Nursing Discharge Summary Entered On: 02/21/2021 18:28 EDT Performed On: 02/21/2021 18:27 EDT by INGRID LUX, [employer] police sergeant Documentation Discharge Date/Time : 02/21/2021 19:15 EDT INGRID LUX RN - 02/21/2021 19:39 EDT Patient Disposition, General : Discharge Discharge To : Home with ambulatory/outpatient follow-up Mode Of Departure, General Discharge : Wheelchair Accompanied By, Discharge : Spouse IV Discontinued : Yes Personal Belongings With Patient : Yes Prescriptions Given to Patient : No Medications Given to Patient : No Discharge Instructions Reviewed With, Opportunity For Questions Given : Patient, Spouse Teaching Method : Explanation, Printed materials Teaching Evaluation : Verbalizes understanding INGRID LUX, RN - 02/21/2021 18:27 EDT Electronically signed by Rosalinda, [facility] Conversion Asphalt Heater Operator Cerner at 10/10/2022 9:23 AM CDT documented in this encounter Plan of Treatment Upcoming Encounters Date Type Department Care Team (Late st Contact Info) Description 01/24/2025 11:00 AM EDT Office Visit [facility] Electrophysiology [address] [place] [phone] Joanne Card MD [address] [place] [phone] 02/15/2025 11:00 AM EDT Office Visit [facility] Cardiology [address] [place], [place] [phone] Arnulfo Luciano APRN [address] [place] [address] [phone] documented as of this encounter Visit Diagnoses Not on filedocumented in this encounter Care Teams Foundry Patternmaker Relationship Specialty Start Date End Date Pietro Martinez MD [address] [place] [place] [address] PCP - General Family Medicine 06/19/22 Simeon Guerrero MD [address] [place] [address] Referring Physician Cardiology 12/19/22 documented as of this encounter
--- OUTSIDE RECORDS SUMMARY | 2025-01-06 10:49 | XMS_ITS | Clinical Summary ---
Author Organization [facility] Address [address] [place] [address] Care Team Providers Care Marine Tower Operator Name Role Phone Pietro Martinez MD Primary Care Provider [phone] Allergies Active Allergy Reactions Criticality Noted Date Comments Penicillin G Other - please docum ent in the comment field Low 11/01/2024 Penicillins Unknown - Patient st ates they do not know rxn details,Rash Low 03/21/2014 Other reaction(s): Unknown Medications Aspirin Buf,CaCarb-MgCarb -MgO, 81 MG tablet TAKE 1 TABLET DAILY. 4 Active atorvastatin (Lipitor) 40 MG tablet TAKE 1 TABLET Bedtime 0 Active bisoprolol (Zebeta) 5 MG tablet Take 0.5 tablets (2.5 mg) by mouth 1 (one) time each day. Pt sates he only takes half a pill one time a day 4 Active cholecalciferol (Vitamin D-3) 50 MCG (1999) capsule TAKE 1 CAPSULE Daily 0 Active nitroglycerin (Nitrostat) 0.4 MG SL tablet Pt sates As needed 4 Active tamsulosin (Flomax) 0.4 MG 24 hr capsule Take one capsule by mouth once daily 8 Active timolol (Timoptic) 0.25 % ophthalmic solution INSTILL 1 DROP IN LEFT EYE EVERY 12 HOURS DAILY. 4 Active warfarin (Coumadin) 1 MG tablet Take 2 tablets (2 mg) by mouth 1 (one) time each day. Mon, Wed, Fri 2.5mg and 2mg other days. INR 2.7 two weeks ago 0 Active omeprazole (PriLOSEC) [address] capsule 1 Active K 100 100 MCG tablet tablet 1 Active omega-3 (Fish Oil) 1000 MG capsule Take 2 capsules (2,000 mg) by mouth twice a day. Pt sates he is only taking 2400 mg Active lisinopril 5 MG tablet Take 1 tablet (5 mg) by mouth 1 (one) time each day. Active amLODIPine (Norvasc) 5 MG tabletIndications :Renovascular hypertension Take 1 tablet (5 mg) by mouth daily. 90 tablet 1 5 03/02/20 25 Active allopurinol (Zyloprim) 300 MG tablet Take 1 tablet by mouth daily. Active ondansetron (Zofran) 8 MG tablet Take 1 tablet by mouth 2 times a day. Active promethazine (Phenergan) 12.5 MG tablet Take 1 tablet by mouth 4 times a day. Active Active Problems Problem Noted Date Diagnosed Date Osteoporosis 06/12/2020 Stroke 11/30/2019 History of stroke 11/24/2019 BPH (benign prostatic hyperplasia) 02/02/2015 Chronic kidney disease, stage 3 03/21/2014 Hypertension 03/21/2014 Renal osteodystrophy 03/21/2014 Encounters Date Type Department Care Team Description 11/01/2024 2:20 PM EDT Office Visit [facility] Nephrology, Bone & Mineral Metabolism [address] , [address] [place] [phone] Lin Chilel MD Stage 3a chronic kidney disease (CMS/HCC) (Primary Dx); Renovascular hypertension; Renal osteodystrophy 11/01/2024 Travel 10/29/2024 Telephone [facility] Nephrology, Bone & Mineral Metabolism [address], [address] [place] [phone] Waleska Little from Last 3 Months Immunizations Immunization Administration Dates Next Due Hep A, Adult 06/17/2018 Influenza, high-dose, quadrivalent 04/05/2016 Moderna COVID-19 Vaccine (Mobile Qa Tester) 12+ years 01/2021,07/04/2020 TD (adult), 2 Lf tetanus tox oid, preservative free, adsorbed 08/25/1996 Zoster, Recombinant 08/26/2018,06/24/2018 Zoster, live 04/22/2013 Family History Medical History Relation Name Comments Other cancer Father Cardiac disorder Mother Transient ischemic attack Mother Transient ischemic attack Other Cardiac disorder Sister Relation Name Status Comments Father Mother Other Sister Social History Tobacco Use Types Packs/Day Years Used Date Smoking Tobacco: Former Smokeless Tobacco: Never Tobacco Cessation:Counseling Given: Not Answered Alcohol Use Standard Drinks/Week Comments No 0 (1 standard drink = 0.6 oz pur e alcohol) PHQ-2 Answer Date Recorded Patient Health Questionnaire-2 Score 0 04/16/2024 Sex and Gender Information Value Date Recorded Sex Assigned at Not on file Legal Sex Male 8:22 PM EDT Gender Identity Not on file Sexual Orientation Not on file Last Filed Vital Signs Vital Sign Reading Time Taken Comments Blood Pressure 134/74 11/01/2024 3:23 PM EDT Pulse 62 11/01/2024 3:23 PM EDT Temperature 36.3 C (97.3 F) 11/01/2024 3:23 PM EDT Respiratory Rate 16 04/28/2024 12:30 PM EST Oxygen Saturation 95% 11/01/2024 3:23 PM EDT Inhaled Oxygen Concentration - - Weight 67.2 kg (148 lb 2.4 oz) 11/01/2024 3:23 P M EDT Height 165.1 cm (5' 5 ) 11/01/2024 3:23 PM EDT Body Mass Index 24.65 11/01/2024 3:23 PM EDT Plan of Treatment Health Maintenance Due Date Last Done Comments [facility]-Bone Density Scan 1944 [facility]-Medicare Annual Wellness (AWV) 1944 [facility]-/Child/Adol SDOH Screenings 1944 [facility]- SDOH Screenings 1962 [facility]-Adult SDOH Screenings 1962 [facility]-Pneumococcal Vaccine: 50+ Years (1 of 2 - PCV) 12/03/1963 [facility]-DTaP,Tdap,and Td Vaccines (1 - Tdap) 08/26/1996 08/25/1996 [facility]-RSV Vaccine: 60+ Years or (1 - 1-dose 75+ series) 12/03/2019 [id number] Vaccine ( season) 2024 10/10/2021, 04/18/2021, 07/31/2020, Additional history exists [facility]-Influenza Vaccine (#1) 2025 04/05/2016 [facility]-Depression Screening 04/16/2025 04/16/2024 [facility]-Hepatitis A Vaccines Aged Out 06/17/2018 No longer eligible based on patient's age to complete this topic [facility]-Zoster Vaccines Completed 08/26/2018, 06/24/2018, 04/22/2013 HPV Vaccines Aged Out No longer eligi ble based on patient's age to complete this topic [facility]-HIB Vaccines Aged Out No longer e ligible based on patient's age to complete this topic [facility]-IPV Vaccines Aged Out No longer e ligible based on patient's age to complete this topic [facility]-Rotavirus Vaccines Aged Out No lo nger eligible based on patient's age to complete this topic [place] [address] [address] [place] [address] MEDICARE Care Teams Marine Tower Operator Relationship Specialty Start Date End Date Pietro Martinez MD [address] [place] [address] [address] [place] [address] PCP - General 02/04/22
[2025-01-06 11:09] LABS: Blood Urea Nitrogen 21 mg/dl (9-20); Creatinine,Serum 1.00 mg/dl (0.66-1.25); Estimated Glomerular Filt Rate 72 ml/min (>60); GFR (African American) 87 ML/MIN (>60)
[2025-01-06] MEDS: IOPAMIDOL-370 (76%);100ML BOTTLE 75 ML IV (11:48)
[2025-01-06] MEDS: SODIUM CHLORIDE 0.9% 10ML SYR (RAD ONLY) 10 ML IV (11:48)
== END 2025-01-06 23:59 | disposition home or self-care (01) ==
LOC: RAD 10:47
PROVIDERS: PCP Nurse Practitioner; Visit Provider Nurse Practitioner
DX: R93.6 Abnormal findings on diagnostic imaging of limbs (principal); R10.9 Unspecified abdominal pain
CPT/HCPCS: 36415; 74177; 82565; 84520; Q9967

== ENCOUNTER 2025-02-18 10:08 | Outpatient (CLI) | payer MEDICARE, SELFPAY ==
--- OUTSIDE RECORDS SUMMARY | 2025-02-15 11:00 | XMS_ITS | Encounter Summary ---
Author Organization [employer] ([place], [place], [place], [place]) Address [address] [place] [address] Care Team Providers Care Scouring Machine Tender Name Role Phone Pietro Martinez MD Primary Care Provider [phone] Simeon Guerrero MD Unavailable [phone] Reason for Visit * Reason Comments Follow-up 6 months Encounter Details Date Type Department Care Team (Late st Contact Info) Description 02/15/2025 11:00 AM EDT Office Visit [facility] Cardiology [address] [place] [address] Arnulfo Luciano APRN [address] [facility] [address] [place] [address] Primary hypertension (Primary Dx); Lymphoma (HCC); Aneurysm of ascending aorta without rupture (HCC); Bifascicular block; Cerebrovascular accident (CVA), unspecified mechanism (HCC); Heart failure, unspecified HF chronicity, unspecified heart failure type (HCC); Tetralogy of Fallot; TIA (transient ischemic attack); Hx of hyperlipidemia; Hx of CABG; History of stroke Social History Tobacco Use Types Packs/Day Years Used Date Smoking Tobacco: Former Cigarettes Q uit: 1983 Smokeless Tobacco: Never Alcohol Use Standard Drinks/Week Comments Never 0 (1 standard drink = 0.6 oz pur e alcohol) Family and Community Support Answer Fran e Recorded Help with Day to Day Activities Not on file 07/05/2023 Feeling Lonely or Isolated Not on file 07/05 Educational Attainment Answer Date Marco Antonio rded Speak language other than Lebanese at home Not on file 07/05/2023 Want [...] on file documented as of this encounter Last Filed Vital Signs Vital Sign Reading Time Taken Comments Blood Pressure 140/68 02/15/2025 11:56 AM EDT Pulse 54 02/15/2025 11:56 AM EDT Temperature - - Respiratory Rate - - Oxygen Saturation - - Inhaled Oxygen Concentration - - Weight 65.3 kg (144 lb) 02/15/2025 11:56 AM EDT Height 165.1 cm (5' 5 ) 02/15/2025 11:56 AM EDT Body Mass Index 23.96 02/15/2025 11:56 AM EDT documented in this encounter Progress Notes * Arnulfo Luciano, RETAIL AIDE - 02/15/2025 11:00 AM EDT CARDIOLOGY FOLLOW UP EVALUATION Date of Service: 02/15/2025 NAME: Jose G Louis : 1945 AGE: 79 y.o. PCP: Pietro Martinez MD Chief Complaints Chief Complaint Patient presents with Follow-up 6 months No complaints History of Present Illness Jose G Louis is an exceptionally pleasant 79-year-old gentleman with a known history oftetralogy of Fallot-status post repair 1962, valvular heart disease with history of mechanical aortic valve in 1982, rheumatic heart disease, history of atrial flutter-status post radiofrequency ablation in November 2022, atherosclerotic cardiovascular disease with history of left coronary bypass grafting and PCI, history of TIA, and recent diagnosis of lymphoma who presents clinic today for follow-up. Tells me overall he is doing fairly well. His primary complaint is of severe back pain for which she is seeing orthopedics currently. He otherwise has no complaints. Review of Systems Review of Systems Constitutional: Negative. HENT: Negative. Eyes: Negative. Respiratory: Negative. Cardiovascular: Negative. Gastrointestinal: Negative. Genitourinary: Negative. Musculoskeletal: Positive for back pain. Skin: Negative. Neurological: Negative. Endo/Heme/Allergies: Negative. Psychiatric/Behavioral: Negative. All other systems reviewed and are negative. Current Medications Current Outpatient Medications Medication Sig Dispense Refill allopurinoL (ZYLOPRIM) 300 MG tablet Take 1 tablet (300 mg total) by mouth in the morning. aspirin 81 MG EC tablet Take 1 tablet (81 mg total) by mouth daily. atorvastatin (LIPITOR) 40 MG tablet Take 1 tablet (40 mg total) by mouth daily. bisoprolol (ZEBETA) 5 MG tablet Take 1 tablet (5 mg total) by mouth daily Pt takes 1/2 tablet PRN. cholecalciferol, vitamin D3, 50 mcg (2,000 unit) Cap Take 400 Units by mouth daily. lisinopriL (PRINIVIL,ZESTRIL) 5 MG tablet Take 1 tablet (5 mg total) by mouth daily. 90 tablet 3 nitroglycerin (NITROSTAT) 0.[address] 1 tablet (0.4 mg total) under the tongue every 5 (five) minutes as needed Put 1 pill under tongue every 5min as needed for chest pain.No more than 3 doses in 15min.Call 911 if pain unrelieved 5min after 1st dose. omega-3 fatty acids-fish oil 340-1,000 mg Cap per capsule Take 2 capsules (2 g total) by mouth 2 (two) times daily. tamsulosin (FLOMAX) 0.4 mg Cap 24 hr capsule Take 1 capsule (0.4 mg total) by mouth daily. timolol (TIMOPTIC) 0.25 % ophthalmic solution warfarin (COUMADIN, JANTOVEN) 1 MG tablet Take 2 tablets (2 mg total) by mouth daily 2 mg, Sun, Tues, Thurs, Sat. 2.5 mg, Mon, Wed, FRi. No current facility-administered medications for this visit. Physical Exam Physical Exam Constitutional: He appears healthy. No distress. HENT: Mouth/Throat: Oropharynx is clear. Eyes: Pupils are equal, round, and reactive to light. Cardiovascular: Normal rate, regular rhythm, S1 normal, S2 normal, intact distal pulses and normal pulses. Murmur heard. Systolic murmur is present with a grade of 3/6. Diastolic murmur is present with a grade of 2/4. Towns mechanical click Pulmonary/Chest: Effort normal and breath sounds normal. He has no wheezes. He exhibits no tenderness. Abdominal: Soft. Bowel sounds are normal. Musculoskeletal: General: Normal range of motion. Cervical back: Normal range of motion and neck supple. Neurological: He is alert and oriented to person, place, and time. Skin: Skin is warm and dry. Vitals Vitals: 02/15/25 1156 BP: (!) 140/68 Pulse: 54 Assessment 1. Primary hypertension ECG 12 lead 2. Lymphoma (HCC) 3. Aneurysm of ascending aorta without rupture (HCC) 4. Bifascicular block 5. Cerebrovascular accident (CVA), unspecified mechanism (HCC) 6. Heart failure, unspecified HF chronicity, unspecified heart failure type (HCC) 7. Tetralogy of Fallot 8. TIA (transient ischemic attack) 9. Hx of hyperlipidemia 10. Hx of CABG 11. History of stroke H/O mechanical aortic valve replacement 1982 H/o Tetralogy of Fallot: repair 1962 Rheumatic disease of heart valve Typical atrial flutter: ablation 11/[address] Card ASC[facility]: Cath/PCI 04/2014: BMS to Cx and PTCA to LAD at [facility] anastamosis. Occluded SVG- RCA but patent RCA stents. h/o remote PA. CABG 1982. History of TIA Hypertension Dyslipidemia Recent diagnosis of lymphoma. Patient recently finished chemotherapy and is starting radiation treatments next week Plan Blood pressure on arrival is significantly elevated. This is decreased while being here in the office. He tells me home blood pressures are as low as 110/60. No change to current medical therapy at this time Lipids per primary Continue blood pressure log. Patient will contact me with readings Recommend heart healthy diet and activity as tolerated Thorough review of all available records performed prior to examination Follow-up 6 months or sooner if needed Orders Placed This Encounter Procedures ECG 12 lead Order Specific Question: Reason for ECG: Answer: Hypertension Return in about 1 year (around 02/15/2026) for Next Scheduled Follow Up. Past Medical History Past Medical History: Diagnosis Date Allergy Arthritis Atrial fibrillation (HCC) Cataract Gout Hyperlipidemia Hypertension Lymphoma (HCC) Stroke (HCC) 2019 Past Surgical History Past Surgical History: Procedure Laterality Date 2 heart caths BYPASS GRAFT AXILLARY-BRACHIAL W/ HARVEST UPPER EXTREMITY VEIN CARDIAC VALVE REPLACEMENT aortic valve CARDIOVERSION CHOLECYSTECTOMY CORONARY ARTERY BYPASS GRAFT tretrology 1963 Allergies Allergies Allergen Reactions Penicillins Rash Other reaction(s): Unknown Social History Social History Tobacco Use Smoking status: Former Current packs/day: 0.00 Types: Cigarettes Quit date: 1982 Years since quittin.6 Smokeless tobacco: Never Vaping Use Vaping status: Never Used Substance Use Topics Alcohol use: Never Drug use: Never Procedures documented in this encounter Plan of Treatment Scheduled Orders Name Type Priority Associated Diagnoses Orde r Schedule ECG 12 lead ECG Routine Primary hypertension Ordered: 02/15/2025 documented as of this encounter Visit Diagnoses Diagnosis Primary hypertension- Primary Unspecified essential hypertension Lymphoma (HCC) Other malignant lymphomas, unspecified site, extranodal and solid organ sites Aneurysm of ascending aorta without rupture (HCC) Bifascicular block Other bilateral bundle branch block Cerebrovascular accident (CVA), unspecified mechanism (HCC) Heart failure, unspecified HF chronicity, unspecified heart failure type (HCC) Tetralogy of Fallot TIA (transient ischemic attack) Unspecified transient cerebral ischemia Hx of hyperlipidemia Hx of CABG Postsurgical aortocoronary bypass status History of stroke Transient ischemic attack (TIA), and cerebral infarction without residual deficits documented in this encounter Care Teams Scouring Machine Tender Relationship Specialty Start Date End Date Pietro Martinez MD [address] [place] [address] PCP - General Family Medicine 06/19/22 Simeon Guerrero MD [address] [place] [address] [place] [address] Referring Physician Cardiology 12/19/22 documented as of this encounter
--- OUTSIDE RECORDS SUMMARY | 2025-02-18 10:10 | XMS_ITS | Encounter Summary ---
Author Organization [employer] ([place], [place], [place], [place]) Address [address] [place] [address] Care Team Providers Care Spanner Operator Name Role Phone Pietro Martinez MD Primary Care Provider [phone] Saw Guerrero MD Unavailable [phone] Encounter Details Date Type Department Care Team (Late st Contact Info) Description 02/21/2021 Transcribed Document [facility] [place] [address] [place] [address] ProviderDoyle MD [facility] [place] [address] Social History Tobacco Use Types [...] Andrea MD - 02/21/2021 6:29 PM CDT [facility] [place] [address] JOSE G HOGUE :1945 Visit Time:02/21/2021 Your Visit Summary Your Care Team Admitting Physician - SAW GUERRERO MD-CAR Attending Physician - SAW GUERRERO MD-CAR Primary Care Physician - NATALIO WEBSTER MD-[facility] Referring Physician - NATALIO WEBSTER MD-FAM Your [...] Comments Please call for appointment Where: [address] [facility] [address] [place] [address]- Medications What How Much When Instructions Next [...] signals of the heart. ??? An ambulatory director cardiac to record your heart's activity for a [...] these instructions at home: Medicines ??? Take cnlj-iwx-btgnfil and prescription medicines only as told by [...] provider. Document Revised: 12/01/2019 Document Reviewed: 12/01/2019 [employer] Patient Education ?? 2020 [employer] Electrical Cardioversion Electrical cardioversion is the delivery [...] including vitamins, herbs, eye drops, creams, and visv-zye-wkpbrlm medicines. ??? Any problems you or family [...] tells you to take them. ? Taking ozii-huk-piqjvuj medicines, vitamins, herbs, and supplements. General instructions [...] a sedative during your procedure. ??? Take cipt-vsl-rlxajfj and prescription medicines only as told by [...] provider. Document Revised: 01/10/2020 Document Reviewed: 01/10/2020 [employer] Patient Education ?? 2020 [employer] Emergency Awareness and Preventative Care STROKE [...] Assistance with quitting is available by contacting 2-935-UFZTNOW. This is a free resource providing counseling, [...] was given the opportunity to ask questions. Patient/Angio Technologist Name: Patient/Angio Technologist Signature: Relationship to Patient: Clinician/Hospital Angio Technologist Signature: Date: Electronically signed by Rosalinda, [facility] Conversion Validation Consultant Cerner at 10/10/2022 9:02 AM CDT documented in this encounter Plan of Treatment Not on file documented as of this encounter Visit Diagnoses Not on filedocumented in this encounter Care Teams Spanner Operator Relationship Specialty Start Date End Date Pietro Martinez MD [address] [place] [place] [address] PCP - General Family Medicine 06/19/22 Saw Guerrero MD [address] [place] [address] Referring Physician Cardiology 12/19/22 documented as of this encounter
--- OUTSIDE RECORDS SUMMARY | 2025-02-18 10:10 | XMS_ITS | Encounter Summary ---
Author Organization [employer] ([place], [place], [place], [place]) Address [address] [place] [address] Care Team Providers Care Timber Setter Name Role Phone Pietro Martinez MD Primary Care Provider [phone] Simeon Guerrero MD Unavailable [phone] Encounter Details Date Type Department Care Team (Late st Contact Info) Description 02/21/2021 Transcribed Document [facility] [place] [address] [place] [address] ProviderDoyle MD [address] [place] [address] Social History Tobacco Use Types [...] signals of the heart. ??? An ambulatory child monitor to record your heart's activity for [...] these instructions at home: Medicines ??? Take rqpl-ypy-jbbujpx and prescription medicines only as told by [...] provider. Document Revised: 12/01/2019 Document Reviewed: 12/01/2019 [employer] Patient Education ? 2020 [employer] Emergency Medicine Electrical Cardioversion Electrical cardioversion [...] including vitamins, herbs, eye drops, creams, and gjkw-iqs-hyucbky medicines. ??? Any problems you or family [...] tells you to take them. ? Taking rswb-bkf-ifljwqb medicines, vitamins, herbs, and supplements. General instructions [...] a sedative during your procedure. ??? Take lsfd-bul-pggyhxf and prescription medicines only as told by [...] provider. Document Revised: 01/10/2020 Document Reviewed: 01/10/2020 [employer] Patient Education ? 2020 [employer] Electronically signed by Johana Tellez Conversion Microfabrication Engineer Manager Cerner at 10/10/2022 9:19 AM CDT documented in this encounter Plan of Treatment Not on file documented as of this encounter Visit Diagnoses Not on filedocumented in this encounter Care Teams Timber Setter Relationship Specialty Start Date End Date Pietro Martinez MD [address] [place] [id number] PCP - General Family Medicine 06/19/22 Simeon Guerrero MD [address] [facility] [place] [address] Referring Physician Cardiology 12/19/22 documented as of this encounter
--- OUTSIDE RECORDS SUMMARY | 2025-02-18 10:10 | XMS_ITS | Clinical Summary ---
Author Organization [facility] Address [address] [place] [address] Care Team Providers Care Wool Brusher Name Role Phone Pietro Martinez MD Primary Care Provider [phone] Allergies Active Allergy Reactions Criticality Noted Date [...] Encounters Date Type Department Care Team Description 02/15/2025 Telephone [facility] Bone & Mineral Metabolism [address] [facility] [address], [address] [place] [address] Aman Delgado MD 02/14/2025 Telephone Professional [facility] Nephrology, Bone & Mineral Metabolism [address] , [address] [place] [address] Aman Delgado MD from Last 3 Months Immunizations Immunization Administration Dates Next Due Hep A, Adult 06/17/2018 Influenza, high-dose, quadrivalent 04/05/2016 Moderna COVID-19 Vaccine (Recreation Manager) 12+ years 01/2021,07/04/2020 TD (adult), 2 Lf [...] 11/01/2024 3:23 PM EDT Plan of Treatment Upcoming Encounters Date Type Department Care Team (Late st Contact Info) Description 05/02/2025 1:20 PM EST Office Visit Professional [facility] Nephrology, Bone & Mineral Metabolism [address] [facility] [address], [address] [place] [address] Health Maintenance Due Date Last Done Comments [facility]-Bone Density Scan 1945 [facility]-Medicare Annual Wellness (AWV) 1945 [facility]-/Child/Adol SDOH Screenings 1945 [facility]- SDOH Screenings 1962 [facility]-Adult SDOH Screenings 1962 [facility]-Pneumococcal Vaccine: 50+ Years (1 of 2 - PCV) 12/03/1963 [facility]-DTaP,Tdap,and Td Vaccines (1 - Tdap) 08/26/1996 08/25/1996 [facility]-RSV Vaccine: 60+ Years or (1 - 1-dose 75+ series) 12/03/2019 [id number] Vaccine (5 - 2023- season) 2024 10/10/2021, 04/18/2021, 07/31/2020, Additional history [...] patient's age to complete this topic Insurance Care Teams Wool Brusher Relationship Specialty Start Date End Date Pietro Martinez MD [address] [place] [address] [address] [place] [address] (work) [facility] - General 02/04/22
--- OUTSIDE RECORDS SUMMARY | 2025-02-18 10:10 | XMS_ITS ---
Author Organization Unknown [facility] Start Date Provider Encounter for Check-up [id number] TOMAS Martinez
--- OUTSIDE RECORDS SUMMARY | 2025-02-18 10:10 | XMS_ITS | Encounter Summary ---
Author Organization [employer] ([place], [place], [place], [place]) Address [address] [place] [address] Care Team Providers Care Beater Dumper Name Role Phone Pietro Martinez MD Primary Care Provider [phone] Simeon Guerrero MD Unavailable [phone] Encounter Details Date Type Department Care Team (Late st Contact Info) Description 02/21/2021 Transcribed Document [facility] [place] [address] [place] [address] ProviderDoyle MD [address] [place] [address] Social History Tobacco Use Types [...] Source : Measured Height Entry Format : [place] Height, Feet : 5 ft(Converted to: 152 cm, 60 Inch) Height, Inches : 5 Inch(Converted to: 0 ft 5 Inch, 12.70 cm) Clinical Height : 165.1 cm Weight Source : Standing scale Weight Entry Format : [place] Clinical Dosing Weight : 71.82 kg Weight, Pounds : 158 lb Body Surface Area (BSA) : 1.79 m2 Body Mass Index : 26.3 kg/m2 (HI) [place] Body Weight : 61 kg INGRID LUX [...] INGRID LUX RN - 02/21/2021 16:02 EDT [place] Suicide Severity Rating Scale (C-SSRS) CSSRS Past [...] Person/Pt Rep Name : jonelle caraballo spouse [phone] Want Family/Rep/Phys Notified of Admit : No Emergency Contact #1 : Jonelle Caraballo Emergency Contact #1 Phone Number : [phone] Chief Complaint : Here gor cardioversion Information Obtained From : Patient Primary Language : Montserratian Communication Barrier : None Senior Financial Reporting Analyst Needed : No INGRID LUX RN - [...] Scale Risk Level : 0-24 Low Risk [place] Fall Interventions : Adequate lighting, Assistive devices within reach, Bed in low position, Call device within reach INGRID LUX RN - 02/21/2021 16:02 EDT documented in this encounter Plan of Treatment Not on file documented as of this encounter Visit Diagnoses Not on filedocumented in this encounter Care Teams Beater Dumper Relationship Specialty Start Date End Date Pietro Martinez MD [address] [place] [address] PCP - General Family Medicine 06/19/22 Simeon Guerrero MD [address] [place] [address] [address] [place] [address] Referring Physician Cardiology 12/19/22 documented as of this encounter
--- OUTSIDE RECORDS SUMMARY | 2025-02-18 10:10 | XMS_ITS | Encounter Summary ---
Author Organization [employer] ([place], [place], [place], [place]) Address [address] [place] [address] Care Team Providers Care District Director Name Role Phone Pietro Martinez MD Primary Care Provider [phone] Simeon Guerrero MD Unavailable [phone] Encounter Details Date Type Department Care Team (Latest Contact Info) Description 02/15/2025 Travel Social History Tobacco Use Types Packs/Day Years [...] Marco Antonio rded Speak language other than Khmer at home Not on file 07/05/2023 Want [...] on filedocumented in this encounter Care Teams District Director Relationship Specialty Start Date End Date Pietro Martinez MD [address] [place] [address] PCP - General Family Medicine 06/19/22 [place] [address] [place] [address] [address] Referring Physician Cardiology 12/19/22 documented as of this encounter
--- OUTSIDE RECORDS SUMMARY | 2025-02-18 10:10 | XMS_ITS | Encounter Summary ---
Author Organization [facility] Address [address] [place] [address] Care Team Providers Care Drum Puller Name Role Phone Pietro Martinez MD Primary Care Provider [phone] Encounter Details Date Type Department Care Team (Late Contact Info) Description 02/15/2025 Telephone Professional [facility] Bone & Mineral Metabolism [address], [address] [place] [address] Aman Delgado MD [address] [place] [address] Social History Tobacco Use Types Packs/Day Years [...] as of this encounter Plan of Treatment Upcoming Encounters Date Type Department Care Team (Late Contact Info) Description 05/02/2025 1:20 PM EST Office Visit Professional [facility] Nephrology, Bone & Mineral Metabolism [address], [address] [place] [address] documented as of this encounter Visit Diagnoses Not on filedocumented in this encounter Additional Health Concerns Assessment Noted Time A fall risk assessment has been complete d for the patient 11/01/2024 3:33 PM EDT A Body Mass Index follow-up plan has been documented for the patient 11/01/2024 3:52 PM EDT documented as of this encounter Care Teams Drum Puller Relationship Specialty Start Date End Date Pietro Martinez MD [address] [place] [address] [address] [place] [address] PCP - General 02/04/22 documented as of this encounter
--- OUTSIDE RECORDS SUMMARY | 2025-02-18 10:10 | XMS_ITS | Encounter Summary ---
Author Organization [facility] Address [address] [place] [address] Care Team Providers Care Gas Attendant Name Role Phone Pietro Martinez MD Primary Care Provider [phone] Encounter Details Date Type Department Care Team (Late Contact Info) Description 03/22/2024 Orders Only External Location [address] [place] [address] Provider, External Social History Tobacco Use Types [...] 05/02/2025 1:20 PM EST Office Visit Professional [facility] Nephrology, Bone & Mineral Metabolism [address] [facility], [address] [place] [address] documented as of this encounter Procedures Procedure [...] documented as of this encounter Care Teams Gas Attendant Relationship Specialty Start Date End Date Pietro Martinez MD [address] [place] [address] [address] [place] [address] PCP - General 02/04/22 documented as of this encounter
--- OUTSIDE RECORDS SUMMARY | 2025-02-18 10:10 | XMS_ITS | Encounter Summary ---
Author Organization [employer] ([place], [place], [place], [place]) Address [address] [place] [address] Care Team Providers Care Aluminum Pool Installer Name Role Phone Pietro Martinez MD Primary Care Provider Simeon Guerrero MD Unavailable [phone] Encounter Details Date Type Department Care Team (Late st Contact Info) Description 02/21/2021 Transcribed Document [facility] [place] Family Medicine [address] [place] [address] ProviderDoyle MD [address] [place] [address] Social History Tobacco Use Types [...] On: 02/21/2021 18:27 EDT by INGRID LUX, account services specialist Documentation Discharge Date/Time : 02/21/2021 19:15 EDT [...] materials Teaching Evaluation : Verbalizes understanding INGRID LUX RN - 02/21/2021 18:27 EDT Electronically signed by Rosalinda, [facility] Conversion Contact Lens Blocker And Cutter Cerner at 10/10/2022 9:23 AM CDT documented in this encounter Plan of Treatment Not on file documented as of this encounter Visit Diagnoses Not on filedocumented in this encounter Care Teams Aluminum Pool Installer Relationship Specialty Start Date End Date Pietro Martinez MD [address] [place] [address] PCP - General Family Medicine 06/19/22 Simeon Guerrero MD [address] [facility] [place] [address] Referring Physician Cardiology 12/19/22 documented as of this encounter
--- OUTSIDE RECORDS SUMMARY | 2025-02-18 10:10 | XMS_ITS | Clinical Summary ---
Author Organization [facility] ([place], [place], [place], [place]) Address [address] [place] [address] Care Team Providers Care Salesperson Men'S And Boys' Clothing Name Role Phone Pietro Martinez MD Primary Care Provider [phone] Simeon Guerrero MD Unavailable [phone] Allergies Active Allergy Reactions Criticality Noted Date [...] Active timolol (TIMOPTIC) 0.25 % ophthalmic solution 08/19/19 Active cholecalcifero l, vitamin D3, 50 mcg (2,000 unit) Cap Take 400 Units by mouth daily. Active omega-3 fatty acids-fish oil 340-1,000 mg Cap per capsule Take 2 capsules (2 g total) by mouth 2 (two) times daily. Active lisinopriL (PRINIVIL,ZEST RIL) 5 MG tablet Take 1 tablet (5 mg total) by mouth daily. 90 tablet 3 05/12/20 Active bisoprolol (ZEBETA) 5 MG tablet Take 1 tablet (5 mg total) by mouth daily Pt takes 1/2 tablet PRN. Active allopurinoL (ZYLOPRIM) 300 MG tablet Take 1 tablet (300 mg total) by mouth in the morning. Active amLODIPine (NORVASC) 5 MG tablet Take 1 tablet (5 mg total) by mouth daily. 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 Pimentel. Tetralogy of Fallot s/p repair 06/13/2022 12/19/2022 GERD (gastroesophageal reflux disease) 06/13/2022 12/19/2022 Arteriosclerosis of coronary artery 04/17/2021 12/19/2022 Overview (06/13/2022): Cath/PCI 04/2014 with BMS to Cx and PTCA to LAD at [facility] anastamosis. Occluded SVG-RCA but patent RCA stents. h/o remote MA. CABG 1982. Hyperlipidemia 04/17/2021 06/20/2023 Typical atrial flutter 03/05/202112/19 Overview (06/13/2022): Diagnosis 01/2021. Single cardioversion. Osteoporosis 06/12/2020 05/22/2024 Encounters Date Type Department Care Team Description 02/15/2025 11:00 AM EDT Office Visit [facility] [address] [place] [address] Arnulfo Luciano APRN Primary hypertension (Primary Dx); Lymphoma (HCC); Aneurysm of ascending aorta without rupture (HCC); Bifascicular block; Cerebrovascular accident (CVA), unspecified mechanism (HCC); Heart failure, unspecified HF chronicity, unspecified heart failure type (HCC); Tetralogy of Fallot; TIA (transient ischemic attack); Hx of hyperlipidemia; Hx of CABG; History of stroke 02/15/2025 Travel from Last 3 Months Family History Medical History Relation Name Comments [...] Marco Antonio rded Speak language other than Estonian at home Not on file 07/05/2023 Want [...] Pulse 54 02/15/2025 11:56 AM EDT Temperature 36.1 C (97 F) 12/19/2022 6:44 AM EDT Respiratory Rate 14 12/19/2022 1:33 PM EDT Oxygen Saturation 92% 08/17/2024 2:02 PM EST Inhaled Oxygen Concentration - - Weight 65.3 kg (144 lb) 02/15/2025 11:56 AM EDT Height 165.1 cm (5' 5 ) 02/15/2025 11:56 AM EDT Body Mass Index 23.96 02/15/2025 11:56 AM EDT Plan of Treatment Health Maintenance Due Date Last Done Comments Medicare Initial AWV G0438 Depression Screening (12+) 1956 Pneumococcal 50+ years (1 of 2 - PCV) 12/03/1963 DTAP/TDAP/TD VACCINES (2 - T d or Tdap) 08/25/2006 08/25/1996 Respiratory Syncytial Virus (RSV) Adult or (1 - 1-dose 75+ series) 12/03/2019 COVID-19 VACCINE (5 - 2023-2 5 season) 2024 10/10/2021, 04/18/2021, 07/31/2020, Additional history exists Falls Risk Screening 06/23/2024 Influenza Vaccine (#1) 2025 04/05/2016, 2015 Tobacco Cessation Counseling and Screening (12+) 08/18/2025 02/15/2025 Shingles Vaccine (Zoster) Completed 2018, 06/24/2018, 04/22/2013 Insurance [employer] MEDICARE PFFS [employer] MEDICARE PPO Advance Directives For more information, please contact: [phone] Documents on File Type Date Recorded Patient Quill Cleaning Machine Operator Expl anation Advance Directives and Janeth simmons Will 12/19/2022 5:33 AM * Full Code (Latest Code Status on File) Date Activated Date Inactivated Comments 12/19/2022 10:35 AM 12/20/2022 4:25 AM * Full Code Date Activated Date Inactivated Comments 12/18/2022 8:18 PM 12/19/2022 10:35 AM Care Teams Salesperson Men'S [employer] Boys' Clothing Relationship Specialty Start Date End Date Pietro Martinez MD [address] [place] [address] PCP - General Family Medicine 06/19/22 Simeon Guerrero MD [address] [facility] [facility] [place] [address] Referring Physician Cardiology 12/19/22
--- OUTSIDE RECORDS SUMMARY | 2025-02-18 10:10 | XMS_ITS | Encounter Summary ---
Author Organization [facility] Address [address] [place] [address] Care Team Providers Care Protection Consultant Name Role Phone Pietro Martinez MD Primary Care Provider [phone] Encounter Details Date Type Department Care Team ([facility] st Contact Info) Description 02/14/2025 Telephone [facility] Ne[facility], [facility] Mineral Metabolism [address], [address] [place] [address] Aman Delgado MD [address] [place] [address] Social History Tobacco Use Types [...] as of this encounter Miscellaneous Notes * Telephone Encounter - Macy Bianchi - 02/15/2025 1:44 PM EDT Status Update Call #1 1st call regarding the status of the initial request. Best contact number: [phone] (home) Optimal time of day to reach caller: ANYTIME Additional comments/information from caller: Please call patient if he should go ahead w/Dexa scan - if he does not answer, leave a message Note: Please do not reply to this message. Follow-up communication and further actions as a result of this message need to be communicated with the patient directly, if the patient is not active onMyChart. If the patient is active on MyChart, they will receive notification of the communication/outcome via MyChart. * Telephone Encounter - Waleska Little - 02/15/2025 9:19 AM EDT Sent form to Dr. Delgado * Telephone Encounter - Waleska Little - 02/15/2025 9:16 AM EDT Requested form from facility * Telephone Encounter - Jyoti Lorenzo - 02/14/2025 11:41 AM EDT Patient Phone Message Reason for Call: Pt is having a bone scan and they ask for clearance before he does the scan. They are faxing the request to the office and ask for it to be sent back before Friday. The scan is scheduled 02-18-25 Best contact number and optimal time of day to reach caller: [phone] ext [phone] Note: Please do not reply to this message. Follow-up communication and further actions as a result of this message need to be communicated with the patient directly, if the patient is not active onMyChart. If the patient is active on MyChart, they will receive notification of the communication/outcome via MyChart. documented in this encounter Plan of Treatment Upcoming Encounters Date Type Department Care Team (Late st Contact Info) Description 05/02/2025 1:20 PM EST Office Visit [facility] Nephrology, Bone & Mineral Metabolism [address], [address] [place] [address] documented as of this encounter Visit Diagnoses Not on filedocumented in this encounter Additional Health Concerns Assessment Noted Time A fall risk assessment has been complete d for the patient 11/01/2024 3:33 PM EDT A Body Mass Index follow-up plan has been documented for the patient 11/01/2024 3:52 PM EDT documented as of this encounter Care Teams Protection Consultant Relationship Specialty Start Date End Date Pietro Martinez MD [address] [place] [address] [address] [place] [address] PCP - General 02/04/22 documented as of this encounter
--- OUTSIDE RECORDS SUMMARY | 2025-02-18 10:10 | XMS_ITS | Referral Summary ---
Author Organization [facility] ([place], [place], [place], [place]) Address [address] [place] [address] Care Team Providers Care Batchmaker Name Role Phone Pietro Martinez MD Primary Care Provider [phone] Simeon Guerrero MD Unavailable [phone] Encounters Date Type Department Care Team Description 02/15/2025 Travel 02/15/2025 11:00 AM EDT Office Visit [facility] Cardiology [address] [place] [address] Arnulfo Luciano APRN Primary hypertension (Primary Dx); Lymphoma (HCC); Aneurysm of ascending aorta without rupture (HCC); Bifascicular block; Cerebrovascular accident (CVA), unspecified mechanism (HCC); Heart failure, unspecified HF chronicity, unspecified heart failure type (HCC); Tetralogy of Fallot; TIA (transient ischemic attack); Hx of hyperlipidemia; Hx of CABG; History of stroke from Last 3 Months Allergies Active Allergy Reactions Criticality Noted Date [...] SVG-RCA but patent RCA stents. h/o remote [place]. CABG 1982. Hyperlipidemia 04/17/2021 06/20/2023 Typical atrial [...] Marco Antonio rded Speak language other than Haitian at home Not on file 07/05/2023 Want [...] 02/15/2025 11:56 AM EDT Plan of Treatment Not on file Insurance [facility] MEDICARE PFFS HUMANA MEDICARE PPO Advance Directives For more information, please contact: [phone] Documents on File Type Date Recorded Patient Cleaner And Preparer Expl anation Advance Directives and Livin g Will 12/19/2022 5:33 AM * Full Code (Latest Code Status on File) Date Activated Date Inactivated Comments 12/19/2022 10:35 AM 12/20/2022 4:25 AM * Full Code Date Activated Date Inactivated Comments 12/18/2022 8:18 PM 12/19/2022 10:35 AM Care Teams Batchmaker Relationship Specialty Start Date End Date Pietro Martinez MD [address] [place] [address] PCP - General Family Medicine 06/19/22 Simeon Guerrero MD [address] [facility] [address] [place] [address] Referring Physician Cardiology 12/19/22
--- NOTE | 2025-02-18 10:11 | NM_ITS ---
FINAL REPORT CLINICAL HISTORY: SPINE PAIN thoracia and lumbar lymphoma 10;15 am 26.5 mci tc mdp COMPARISON: None FINDINGS: EXISTING RELEVANT IMAGING STUDIES: TECHNIQUE: The patient was injected with 26.5 mCi of technetium 99-MDP. 3 hour delayed images were obtained. FINDINGS: There is increased tracer activity in the proximal left humerus at the level of the humeral head and glenohumeral joint. There is also a transverse linear focus of increased uptake at approximately the L1 level. This may represent an acute or subacute compression fracture. No other abnormal tracer activity is identified to suggest occult fracture or metastatic disease. IMPRESSION: Increased tracer uptake is present in the proximal left humerus at the level of the humeral head and glenohumeral joint. Recommend a left shoulder series for further evaluation. Transverse linear focus of increased uptake at the L1 level, that may represent an acute or subacute compression fracture. Recommend MRI of the lumbar spine for further evaluation. Reviewed, Interpreted and Dictated by Stuart Nichole MD Transcribed by [employer] Authenticated and [facility]
[2025-02-18] MEDS: ISOTOPE MDP (BONE);1 DOSE VIAL IV (10:48)
[2025-02-18] MEDS: SODIUM CHLORIDE 0.9% 10ML SYR (RAD ONLY) 10 ML IV (10:48)
== END 2025-02-18 23:59 | disposition home or self-care (01) ==
LOC: RAD 10:08
PROVIDERS: PCP Nurse Practitioner; Visit Provider Internal Medicine Cardiovascular Disease
DX: M54.6 Pain in thoracic spine (principal); M54.50 Low back pain, unspecified; C85.90 Non-Hodgkin lymphoma, unspecified, unspecified site
CPT/HCPCS: 78306; A9503

== ENCOUNTER 2025-03-18 10:29 | Outpatient (CLI) | payer MEDICARE, SELFPAY ==
--- OUTSIDE RECORDS SUMMARY | 2025-03-18 10:32 | XMS_ITS | Clinical Summary ---
Author Organization [facility] Address [address] [place] [address] Care Team Providers Care Licensed Nuclear Control Room Operator Name Role Phone Pietro Martinez MD Primary Care Provider [phone] Allergies Active Allergy Reactions Criticality Noted Date [...] by mouth daily. 90 tablet 1 5 Active allopurinol (Zyloprim) 300 MG tablet Take [...] Date Type Department Care Team Description 02/15/2025 [facility] Bone & Mineral Metabolism [address], [address] [place] [address] Aman Delgado MD 02/14/2025 [facility] Nephrology, Bone & Mineral Metabolism [address], [address] [place] [address] Aman Delgado MD from Last 3 Months Immunizations Immunization Administration Dates Next Due Hep A, Adult 06/17/2018 Influenza, high-dose, quadrivalent 04/05/2016 Moderna COVID-19 Vaccine (Ship Liner) 12+ years 01/2021,07/04/2020 TD (adult), 2 Lf [...] Upcoming Encounters Date Type Department Care Team ([facility] st Contact Info) Description 05/02/2025 1:20 PM EST Office Visit [facility], Bone [facility] Mineral Metabolism [address], [address] [place] [address] Health Maintenance Due Date Last Done Comments [facility]-Bone Density Scan 1944 [facility]-Medicare Annual Wellness (AWV) 1944 [facility]-Infant/Child/Adol SDOH Screenings 1944 [facility]- SDOH Screenings 1962 [facility]-Adult SDOH Screenings 1962 [facility]-Pneumococcal Vaccine: 50+ Years (1 of 2 - PCV) 12/03/1963 [facility]-DTaP,Tdap,and Td Vaccines (1 - Tdap) 08/26/1996 08/25/1996 [facility]-RSV Vaccine: 60+ Years or (1 - 1-dose 75+ series) 12/03/2019 [id number] Vaccine (5 - 2024- season) 2025 10/10/2021, 04/18/2021, 07/31/2020, Additional history exists [facility]-Influenza [...] patient's age to complete this topic [place] [address] [place] [address] MEDICARE Care Teams Licensed Nuclear Control Room Operator Relationship Specialty Start Date End Date Pietro Martinez MD [address] [place] [address] [address] [place] [address] PCP - General 02/04/22
--- OUTSIDE RECORDS SUMMARY | 2025-03-18 10:32 | XMS_ITS | Encounter Summary ---
Author Organization [facility] Address [address] [place] [address] Care Team Providers Care Compass Operator Name Role Phone Pietro Martinez MD Primary Care Provider [phone] Encounter Details Date Type Department Care Team ([facility] st Contact Info) Description 02/14/2025 Telephone [facility]phrology, Bone & Mineral Metabolism [address], [address] [place] [address] Aman Delgado MD [address] [place] [address] Social History Tobacco Use Types [...] of the initial request. Best contact number: [phone] (home) Optimal time of day to reach [...] optimal time of day to reach caller: [phone] ext [phone] Note: Please do not reply [...] Description 05/02/2025 1:20 PM EST Office Visit [facility] Nephrology, Bone & Mineral Metabolism [address], [address] [place] [address] documented as of this encounter Visit Diagnoses Not on filedocumented in this encounter Additional Health Concerns Assessment Noted Time A fall risk assessment has been complete d for the patient 11/01/2024 3:33 PM EDT A Body Mass Index follow-up plan has been documented for the patient 11/01/2024 3:52 PM EDT documented as of this encounter Care Teams Compass Operator Relationship Specialty Start Date End Date Pietro Martinez MD [address] [place] [address] [address] [place] [address] PCP - General 02/04/22 documented as of this encounter
--- OUTSIDE RECORDS SUMMARY | 2025-03-18 10:32 | XMS_ITS | Encounter Summary ---
Author Organization [facility] Address [address] [place] [address] Care Team Providers Care Electrophysiology Scientist Name Role Phone Pietro Martinez MD Primary Care Provider [phone] Encounter Details Date Type Department Care Team (Late Contact Info) Description 03/22/2024 Orders Only External Location [address] [place] [address] Provider, External Social History Tobacco Use Types [...] 05/02/2025 1:20 PM EST Office Visit [facility] Nephrology, Bone & Mineral Metabolism [address] [facility] [address], [address] [place] [address] documented as of this encounter [...] documented as of this encounter Care Teams Electrophysiology Scientist Relationship Specialty Start Date End Date Pietro Martinez MD [address] [place] [address] [address] [place] [address] PCP - General 02/04/22 documented as of this encounter
--- OUTSIDE RECORDS SUMMARY | 2025-03-18 10:32 | XMS_ITS | Encounter Summary ---
Author Organization [facility] Address [address] [place] [address] Care Team Providers Care Transmitter Engineer Name Role Phone Pietro Martinez MD Primary Care Provider [phone] Encounter Details Date Type Department Care Team (Late Contact Info) Description 02/15/2025 Telephone [facility] [address] [place] [address] Aman Delgado MD [address] [place] [address] Social History Tobacco Use Types [...] 05/02/2025 1:20 PM EST Office Visit [facility] & Mineral Metabolism [address] [place] [address] documented as of this encounter Visit Diagnoses Not on filedocumented in this encounter Additional Health Concerns Assessment Noted Time A fall risk assessment has been complete d for the patient 11/01/2024 3:33 PM EDT A Body Mass Index follow-up plan has been documented for the patient 11/01/2024 3:52 PM EDT documented as of this encounter Care Teams Transmitter Engineer Relationship Specialty Start Date End Date Pietro Martinez MD [address] [place] [address] [address] [place] [address] PCP - General 02/04/22 documented as of this encounter
--- NOTE | 2025-03-18 10:48 | XR_ITS ---
FINAL REPORT CLINICAL HISTORY: Preop, shortness of breath FINDINGS: PA and lateral views of the chest are obtained. There is no prior exam for comparison. Prior median sternotomy. The cardiac and mediastinal silhouettes are within normal limits. There are changes of emphysema. No focal infiltrate. No pleural effusion or pneumothorax. Several compression deformities of the thoracolumbar junction are age indeterminate. IMPRESSION: No radiographic evidence of acute cardiac or pulmonary disease. Age indeterminate compression deformities. Reviewed, Interpreted and Dictated by Inna Gifford MD Transcribed by Daina Fan Authenticated and [facility] [place] [place]
[2025-03-18 11:07] LABS: Hematocrit 45.4 % (42.0-52.0); Hemoglobin 15.0 g/dL (14.1-18.0); Immature Granulocytes % 0.6 %; Mean Corpuscular HGB Conc 33.0 g/dL (31.8-35.4); Mean Corpuscular Hemoglobin 32.7 pg (27.0-31.2); Mean Corpuscular Volume 98.9 fl (80-94); Nucleated Red Blood Cells % 0 %; Platelet Count 182 K/mm3 (142-424); Red Blood Count 4.59 M/mm3 (4.60-6.20); Red Cell Distribution Width-SD 51.9 fL; White Blood Count 7.2 K/mm3 (4.8-10.8)
--- NOTE | 2025-03-18 11:10 | ECG_ITS ---
APPROVED REPORT Exam: Resting ECG HR:56 bpm ECG Measurements Heart Rate 56 AXES OR 183 P 27 QRSd 147 QRS 210 QT 439 T 44 QTc 432 Conclusion SINUS BRADYCARDIA RIGHT AXIS DEVIATION [QRS AXIS > 100] RIGHT BUNDLE BRANCH BLOCK AND POSSIBLE RIGHT VENTRICULAR HYPERTROPHY [RBBB, 1.5 mV R IN V1, RAD] MODERATE VOLTAGE CRITERIA FOR LVH, CONSIDER NORMAL VARIANT [MEETS CRITERIA IN ONE OF: R(aVL), S(V1), R(V5), R(V5/V6)+S(V1)] POSSIBLE ANTERIOR MYOCARDIAL INFARCTION , PROBABLY OLD [30 ms Q WAVE IN V3/V4, OR R < 0.2 mV IN V4] INFERIOR MYOCARDIAL INFARCTION , PROBABLY OLD [40+ ms Q WAVE AND/OR ST/T ABNORMALITY IN II/aVF] ABNORMAL ECG UNCONFIRMED REPORT Electronically signed by : Samuel Payne MD 03/19/2025 08:43:01
[2025-03-18 11:40] LABS: Alanine Aminotransferase 17 U/L (12-78); Albumin Level 3.9 g/dl (3.5-5.0); Albumin/Globulin Ratio 2.0 (1.1-1.8); Alkaline Phosphatase 87 U/L (38-126); Anion Gap 15.0 mEq/L (5-15); Aspartate Amino Transferase 41 U/L (17-59); Bilirubin,Total 1.3 mg/dl (0.2-1.3); Blood Urea Nitrogen 23 mg/dl (9-20); Calcium 9.6 mg/dl (8.4-10.2); Carbon Dioxide 24 mmol/L (22.0-30.0); Chloride 106 mmol/L (98-107); Creatinine,Serum 1.00 mg/dl (0.66-1.25); Estimated Glomerular Filt Rate 72 ml/min (>60); GFR (African American) 87 ML/MIN (>60); Globulin 2.0 g/dL (1.3-3.2); Glucose 99 mg/dl (74-100); Magnesium 1.4 mg/dl (1.6-2.3); Potassium 5.0 mmoL/L (3.5-5.1); Sodium 140 mmol/L (136-145); Total Protein,Serum 5.9 g/dl (6.3-8.2)
== END 2025-03-18 23:59 | disposition home or self-care (01) ==
LOC: RAD 10:31
PROVIDERS: PCP Nurse Practitioner; Visit Provider Nurse Practitioner
DX: Z01.810 Encounter for preprocedural cardiovascular examination (principal); Z01.811 Encounter for preprocedural respiratory examination; Z01.812 Encounter for preprocedural laboratory examination; I25.2 Old myocardial infarction; I45.10 Unspecified right bundle-branch block; R00.1 Bradycardia, unspecified; R94.31 Abnormal electrocardiogram [ECG] [EKG]; M48.55XA Collapsed vertebra, not elsewhere classified, thoracolumbar region, initial encounter for fracture
CPT/HCPCS: 36415; 71046; 80053; 83735; 85025; 93005

== ENCOUNTER 2025-04-25 10:12 | Outpatient (CLI) | payer MEDICARE, SELFPAY ==
--- OUTSIDE RECORDS SUMMARY | 2025-04-25 10:21 | XMS_ITS | Encounter Summary ---
Author Organization [facility] Address [address] [place] [address] Care Team Providers Care Channel Lip Wetter Name Role Phone Pietro Martinez MD Primary Care Provider [phone] Encounter Details Date Type Department Care Team ([facility] st Contact Info) Description 04/15/2025 Orders Only [facility] Nephrology, Bone & Mineral Metabolism [address] [facility] [address] [facility] [address], [address] [place] [address] Aman Delgado MD [address] [facility] [address] [place] [address] Renal osteodystrophy (Primary Dx); Osteopenia, unspecified location Social History Tobacco Use Types Packs/Day Years [...] as of this encounter Miscellaneous Notes * Progress Notes - Aman Delgado MD - 04/15/2025 2:08 PM EDT Order bmd documented in this encounter Plan of Treatment Upcoming Encounters Date Type Department Care Team (Late st Contact Info) Description 05/02/2025 1:20 PM EST Office Visit [facility] Nephrology, Bone & Mineral Metabolism [address] [facility], [address] [place] [address] Scheduled Orders Name Type Priority Associated Diagnoses Orde r Schedule Dexa Bone Density Imaging Routine Renal osteodystrophy Osteopenia, unspecified location Expected: 04/15/2025 (Approximate), Expires: 10/17/2026 documented as of this encounter Visit Diagnoses Diagnosis Renal osteodystrophy- Primary Osteopenia, unspecified location documented in this encounter Additional Health Concerns Assessment Noted Time A fall risk assessment has been complete d for the patient 11/01/2024 3:33 PM EDT A Body Mass Index follow-up plan has been documented for the patient 11/01/2024 3:52 PM EDT documented as of this encounter Care Teams Channel Lip Wetter Relationship Specialty Start Date End Date Pietro Martinez MD [address] [place] [address] [address] [place] [address] PCP - General 02/04/22 documented as of this encounter
--- OUTSIDE RECORDS SUMMARY | 2025-04-25 10:21 | XMS_ITS | Clinical Summary ---
Author Organization [facility] Address [address] [place] [address] Care Team Providers Care Rolling Mill Plugger Name Role Phone Pietro Martinez MD Primary Care Provider [phone] Allergies Active Allergy Reactions Criticality Noted Date [...] IN LEFT EYE EVERY 12 HOURS DAILY. 09/29/201 4 Active warfarin (Coumadin) 1 MG tablet [...] Encounters Date Type Department Care Team Description 04/21/2025 [facility] Nephrology, Bone & Mineral Metabolism [address] [facility], [address] [place] [address] Lor Decker, PIPE ASSEMBLY WORKER 04/15/2025 Orders Only [facility] Nephrology, Bone & Mineral Metabolism [address], [address] [place] [address] Aman Delgado MD Renal osteodystrophy (Primary Dx); Osteopenia, unspecified location 04/14/2025 [facility] Bone & Mineral Metabolism [address], [address] [place] [address] mAan Delgado MD [facility] Clinical Concern/Question 02/15/2025 [facility] Bone & Mineral Metabolism [address], [address] [place] [address] Aman Delgado MD 02/14/2025 [facility] Nephrology, Bone & Mineral Metabolism [address], [address] [place] [address] Aman Delgado MD from Last 3 Months Immunizations Immunization Administration Dates Next Due Hep A, Adult 06/17/2018 Influenza, high-dose, quadrivalent 04/05/2016 Moderna COVID-19 Vaccine (Senior Health Physics Technician) 12+ years 01/2021,07/04/2020 TD (adult), 2 Lf [...] Description 05/02/2025 1:20 PM EST Office Visit [facility] Nephrology, Bone & Mineral Metabolism [address], [address] [place] [address] Health Maintenance Due Date Last Done Comments [facility]-Bone Density Scan 1945 [facility]-Medicare Annual Wellness (AWV) 1944 [facility]-/Child/Adol SDOH Screenings 1944 [facility]- SDOH Screenings 1962 [facility]-Adult SDOH Screenings 1962 [facility]-Pneumococcal Vaccine: 50+ Years (1 of 2 - PCV) 12/03/1963 [facility]-DTaP,Tdap,and Td Vaccines (1 - Tdap) 08/26/1996 08/25/1996 [facility]-RSV Vaccine: 60+ Years or (1 - 1-dose 75+ series) 12/03/2019 [id number] Vaccine ( - season) 2025 10/10/2021, 04/18/2021, 07/31/2020, Additional history [...] patient's age to complete this topic Insurance [employer]NA MEDICARE Care Teams Rolling Mill Plugger Relationship Specialty Start Date End Date Pietro Martinez MD [address] [place] [address] [address]1 [address] [place] [address] PCP - General 02/04/22
--- OUTSIDE RECORDS SUMMARY | 2025-04-25 10:21 | XMS_ITS | Encounter Summary ---
Author Organization [facility] Address [address] [place] [address] Care Team Providers Care Shank Skinner Name Role Phone Pietro Martinez MD Primary Care Provider [phone] Encounter Details Date Type Department Care Team (Late Contact Info) Description 04/21/2025 Telephone Professional [employer] [facility] Nephrology, Bone & Mineral Metabolism [address], [address] [place] [address] Lor Decker, LEASE ADMINISTRATION SUPERVISOR GS - 7 MAIN MEDICAL-SURGICAL Social History Tobacco Use Types Packs/Day Years [...] 05/02/2025 1:20 PM EST Office Visit Professional [employer] [facility] Nephrology, Bone & Mineral Metabolism [address], [address] [place] [address] documented as of this encounter Visit Diagnoses Not on filedocumented in this encounter Additional Health Concerns Assessment Noted Time A fall risk assessment has been complete d for the patient 11/01/2024 3:33 PM EDT A Body Mass Index follow-up plan has been documented for the patient 11/01/2024 3:52 PM EDT documented as of this encounter Care Teams Shank Skinner Relationship Specialty Start Date End Date Pietro Martinez MD [address] [place] [address] #1 #1 DUST[place] Bender [id number] PCP - General 02/04/22 documented as of this encounter
--- OUTSIDE RECORDS SUMMARY | 2025-04-25 10:21 | XMS_ITS | Encounter Summary ---
Author Organization [facility] Address [address] [place] [address] Care Team Providers Care Alley Worker Name Role Phone Pietro Martinez MD Primary Care Provider [phone] Encounter Details Date Type Department Care Team (Late Contact Info) Description 02/15/2025 Telephone Professional [facility] [place] [facility] [address], [address] [place] [address] Aman Delgado MD [address] [place] [address] Social History Tobacco Use Types [...] 05/02/2025 1:20 PM EST Office Visit Professional [facility] [place] Nephrology, Bone & Mineral Metabolism [address], [address] [place] [address] documented as of this encounter Visit Diagnoses Not on filedocumented in this encounter Additional Health Concerns Assessment Noted Time A fall risk assessment has been complete d for the patient 11/01/2024 3:33 PM EDT A Body Mass Index follow-up plan has been documented for the patient 11/01/2024 3:52 PM EDT documented as of this encounter Care Teams Alley Worker Relationship Specialty Start Date End Date Pietro Martinez MD [address] [place] [address] #1 #1 DUSTY Bender [id number] PCP - General 02/04/22 documented as of this encounter
--- OUTSIDE RECORDS SUMMARY | 2025-04-25 10:21 | XMS_ITS | Encounter Summary ---
Author Organization [facility] Address [address] [place] [address] Care Team Providers Care Strategy Manager Name Role Phone Pietro Martinez MD Primary Care Provider [phone] Reason for Visit * Reason Onset Date Comments HCN Clinical Concern/Question 04/14/2025 Encounter Details Date Type Department Care Team ([facility] st Contact Info) Description 04/14/2025 Telephone [facility] [address], [address] [place] [address] Aman Delgado MD [address] [place] [address] HCN Clinical Concern/Question Social History Tobacco Use Types Packs/Day Years [...] encounter Miscellaneous Notes * Telephone Encounter - Fadumo Aparicio LPN - 04/18/2025 9:21 AM EDT Faxed lab orders and dexa order to [facility]. Lab orders faxed to [phone] anddexa order faxed to [phone]. Called patient and informed that lab and dexa orders were faxed. No other questions or concerns at this time. * Telephone Encounter - Rosamaria Mcarthur - 04/14/2025 9:48 AM EDT Clinical Concern/Question Reason for Call: Patient checking to see if he needs a Dexa scan before his follow up. Best contact number: [phone] (home) Optimal time of day to reach caller: ANYTIME Additional comments/information from caller: None Note: Please do not reply to this message. Follow-up communication and further actions as a result of this message need to be communicated with the patient directly, if the patient is not active onMyChart. If the patient is active on MyChart, they will receive notification of the communication/outcome via [employer]. documented in this encounter Plan of Treatment Upcoming Encounters Date Type Department Care Team (Late st Contact Info) Description 05/02/2025 1:20 PM EST Office Visit [facility] Nephrology, Bone & Mineral Metabolism [address], [address] [place] [address] documented as of this encounter Visit Diagnoses Not on filedocumented in this encounter Additional Health Concerns Assessment Noted Time A fall risk assessment has been complete d for the patient 11/01/2024 3:33 PM EDT A Body Mass Index follow-up plan has been documented for the patient 11/01/2024 3:52 PM EDT documented as of this encounter Care Teams Strategy Manager Relationship Specialty Start Date End Date Pietro Martinez MD [address] [place] [address] #1 #1 [place] [address] PCP - General 02/04/22 documented as of this encounter
--- OUTSIDE RECORDS SUMMARY | 2025-04-25 10:21 | XMS_ITS | Encounter Summary ---
Author Organization [facility] Address [address] [place] [address] Care Team Providers Care Youth Liaison Officer Name Role Phone Pietro Martinez MD Primary Care Provider [phone] Encounter Details Date Type Department Care Team (Late Contact Info) Description 03/22/2024 Orders Only External Location [address] [place] [address] Provider, External Social History Tobacco Use Types [...] 05/02/2025 1:20 PM EST Office Visit Professional [facility] Nephrology, Bone & Mineral Metabolism [address] [address], [address] [place] [address] documented as of this encounter [...] documented as of this encounter Care Teams Youth Liaison Officer Relationship Specialty Start Date End Date Pietro Martinez MD [address] [place] [address] #1 #1 DUSTY Bender [address] PCP - General 02/04/22 documented as of this encounter
[2025-04-25 10:28] LABS: Hematocrit 42.2 % (42.0-52.0); Hemoglobin 14.2 g/dL (14.1-18.0); Mean Corpuscular HGB Conc 33.6 g/dL (31.8-35.4); Mean Corpuscular Hemoglobin 33.3 pg (27.0-31.2); Mean Corpuscular Volume 98.8 fl (80-94); Nucleated Red Blood Cells % 0 %; Platelet Count 172 K/mm3 (142-424); Red Blood Count 4.27 M/mm3 (4.60-6.20); Red Cell Distribution Width-SD 49.5 fL; White Blood Count 5.9 K/mm3 (4.8-10.8)
[2025-04-25 11:43] LABS: Albumin Level 3.6 g/dl (3.5-5.0); Anion Gap 9.4 mEq/L (5-15); Blood Urea Nitrogen 27 mg/dl (9-20); Calcium 8.9 mg/dl (8.4-10.2); Carbon Dioxide 27 mmol/L (22.0-30.0); Chloride 105 mmol/L (98-107); Creatinine,Serum 1.10 mg/dl (0.66-1.25); Estimated Glomerular Filt Rate 64 ml/min (>60); GFR (African American) 78 ML/MIN (>60); Glucose 105 mg/dl (74-100); Phosphorous 3.8 mg/dl (2.5-4.5); Potassium 4.4 mmoL/L (3.5-5.1); Sodium 137 mmol/L (136-145)
[2025-04-25 12:01] LABS: 25-OH Vitamin D, Total 64.1 ng/mL (30-100)
== END 2025-04-25 23:59 | disposition home or self-care (01) ==
LOC: LAB 10:13
PROVIDERS: PCP Nurse Practitioner; Visit Provider Internal Medicine Nephrology
DX: N18.31 Chronic kidney disease, stage 3a (principal); I15.0 Renovascular hypertension; N25.0 Renal osteodystrophy
CPT/HCPCS: 36415; 80069; 82306; 85027

== ENCOUNTER 2025-05-05 08:39 | Outpatient (CLI) | payer MEDICARE, SELFPAY ==
--- OUTSIDE RECORDS SUMMARY | 2025-05-02 13:20 | XMS_ITS | Encounter Summary ---
Author Organization [facility] Address [address] [place] [address] Care Team Providers Care Vp Medical Name Role Phone Pietro Martinez MD Primary Care Provider [phone] Reason for Referral * Consultation (Routine) - Authorized Specialty Diagnoses / Procedures Referred By Lisset machado Referred To Contact Diagnoses Renovascular hypertension Aman Delgado MD [address] [address] Phone: tel: fax: Referral ID Status Reason Start Date Expiration Date V isits Requested Visits Authorized [id number] Authorized 05/02/2025 11/01/2026 1 1 Reason for Visit * Reason Comments Follow-up Encounter Details Date Type Department Care Team (Late st Contact Info) Description 05/02/2025 1:20 PM EST Office Visit [facility] Nephrology, Bone & Mineral Metabolism [address] [place] [address] Aman Delgado MD [address] [place] [address] Stage 3a chronic kidney disease (CMS/HCC) [...] Chilel MD Nephrology/Critical Care Medicine Fellow Pager: [phone] Cosigned by Aman Delgado MD at 05/03/2025 3:16 PM EST Associated attestation - Aman Delgado MD - 05/03/2025 3:16 PM EST I saw and evaluated the patient with the resident/fellow. I discussed the case with the resident/fellow and agree with the findings and plan as documented. documented in this encounter Plan of Treatment Upcoming Encounters Date Type Department Care Team ([facility] st Contact Info) Description 10/31/2025 2:20 PM EDT Office Visit [facility] Nephrology, Bone & Mineral Metabolism [address] [facility], [address] [place] [address] Scheduled Orders Name Type Priority [...] documented as of this encounter Care Teams Vp Medical Relationship Specialty Start Date End Date Pietro Martinez MD [address] [place] [address] #1 #1 DUSTY Bender [address] PCP - General 02/04/22 documented as of this encounter
--- NOTE | 2025-05-05 08:42 | XR_ITS ---
FINAL REPORT CLINICAL HISTORY: SCREENING COMPARISON: 07/11/2021 FINDINGS: Using right forearm, the bone mineral density of the mid is 0.397 g/cm2, corresponding to T-score of -5.4. Using the left hip, the bone mineral density of the femoral neck is 0.649 g/cm2, corresponding to a T-score of -2.5. The bone marrow change versus midline is -0.5%. Using the right hip, the bone mineral density of the femoral neck is 0.641 g/cm2, corresponding to a T-score of -2.1. The bone marrow change versus midline is 3.9%. NOTE: T-score: Standard deviation compared with peak bone mass of young adult mean. *Following the recommendations of the International Society of Bone densitometry, classification of hip BMD is based on the lower of two T-scores; total hip or femoral neck. IMPRESSION: Diminished bone mineral density of the right hip corresponds to osteopenia. Diminished bone mineral density of the left hip and right forearm correspond to osteoporosis. Reviewed, Interpreted and Dictated by Leann Mccoy MD Transcribed by [employer]henticated and [facility]
--- OUTSIDE RECORDS SUMMARY | 2025-05-05 08:44 | XMS_ITS | Encounter Summary ---
Author Organization [facility] Address [address] [place] [address] Care Team Providers Care Furniture Decals Inspector Name Role Phone Pietro Martinez MD Primary Care Provider [phone] Encounter Details Date Type Department Care Team (Late st Contact Info) Description 03/22/2024 Orders Only External Location [address] [place] [address] Provider, External Social History Tobacco Use Types [...] Department Care Team (Late Contact Info) Description 10/31/2025 2:20 PM EDT Office Visit Professional [facility] Nephrology, Bone & Mineral Metabolism [address] [facility], [address] [place] [address] documented as of this encounter [...] documented as of this encounter Care Teams Furniture Decals Inspector Relationship Specialty Start Date End Date Pietro Martinez MD [address] [place] [address] #1 #1 DUSTY Bender [address] PCP - General 02/04/22 documented as of this encounter
--- OUTSIDE RECORDS SUMMARY | 2025-05-05 08:44 | XMS_ITS | Encounter Summary ---
Author Organization [facility] Address [address] [place] [address] Care Team Providers Care Mid Level Java Developer Name Role Phone Pietro Martinez MD Primary Care Provider [phone] Encounter Details Date Type Department Care Team (Latest Contact Info) Description 05/02/2025 Travel Social History Tobacco Use Types Packs/Day [...] Care Team (Late st Contact Info) Description 10/31/2025 2:20 PM EDT Office Visit [facility] Nephrology, Bone & Mineral Metabolism [address] [facility], [address] [place] [address] documented as of this encounter Visit Diagnoses Not on filedocumented in this encounter Additional Health Concerns Assessment Noted Time A fall risk assessment has been complete d for the patient 05/02/2025 1:41 PM EST A Body Mass Index follow-up plan has been documented for the patient 05/03/2025 3:16 PM EST documented as of this encounter Care Teams Mid Level Java Developer Relationship Specialty Start Date End Date Pietro Martinez MD [address] [place] [address] #1 #1 DUSTY Bender [address] PCP - General 02/04/22 documented as of this encounter
--- OUTSIDE RECORDS SUMMARY | 2025-05-05 08:44 | XMS_ITS | Encounter Summary ---
Author Organization [facility] Address [address] [place] [address] Care Team Providers Care Caravan Park And Camping Ground Manager Name Role Phone Pietro Martinez MD Primary Care Provider [phone] Reason for Visit * Reason Onset Date Comments HCN Clinical Concern/Question 04/14/2025 Encounter Details Date Type Department Care Team ([facility] st Contact Info) Description 04/14/2025 Telephone [facility] [address] [facility], [address] [place] [address] Aman Delgado MD [address] [facility] [address] [place] [address] HCN Clinical Concern/Question Social History [...] Faxed lab orders and dexa order to [facility]. Lab orders faxed to [phone] anddexa order faxed to [phone]. Called patient and informed that lab and dexa orders were faxed. No other questions or concerns at this time. * Telephone Encounter - Rosamaria Mcarthur - 04/14/2025 9:48 AM EDT Clinical Concern/Question Reason for Call: Patient checking to see if he needs a Dexa scan before his follow up. Best contact number: [phone] (home) Optimal time of day to reach caller: ANYTIME Additional comments/information from caller: None Note: Please do not reply to this message. Follow-up communication and further actions as a result of this message need to be communicated with the patient directly, if the patient is not active onMyChart. If the patient is active on MyChart, they will receive notification of the communication/outcome via [employer]. documented in this encounter Plan of Treatment Upcoming Encounters Date Type Department Care Team (Late st Contact Info) Description 10/31/2025 2:20 PM EDT Office Visit [facility] Nephrology, Bone & Mineral Metabolism [address] [facility], [address] [place] [address] documented as of this encounter Visit Diagnoses Not on filedocumented in this encounter Additional Health Concerns Assessment Noted Time A fall risk assessment has been complete d for the patient 11/01/2024 3:33 PM EDT A Body Mass Index follow-up plan has been documented for the patient 11/01/2024 3:52 PM EDT documented as of this encounter Care Teams Caravan Park And Camping Ground Manager Relationship Specialty Start Date End Date Pietro Martinez MD [address] [place] [address] #1 #1 [place]aw[place]DUSTY [address] PCP - General 02/04/22 documented as of this encounter
--- OUTSIDE RECORDS SUMMARY | 2025-05-05 08:44 | XMS_ITS | Clinical Summary ---
Author Organization [facility] ([place], [place], [place], [place], [place]) Address [address] [place] [address] Care Team Providers Care Pipe Processor Name Role Phone Pietro Martinez MD Primary Care Provider [phone] Simeon Guerrero MD Unavailable [phone] Allergies Active Allergy Reactions Criticality Noted Date [...] mouth daily. 90 tablet 3 3 Active bisoprolol (ZEBETA) 5 MG tablet Take [...] replacement 06/13/2022 12/19/2022 Overview (06/18/2022): Chemical AVR: [facility] in 1982 Abdominal aortic aneurysm (AAA) 06/13/2022 12/19/2022 Overview (06/13/2022): followed by Dr. Pimentel. Tetralogy of Fallot s/p repair 06/13/2022 12/19/2022 GERD (gastroesophageal reflux disease) 06/13/2022 12/19/2022 Arteriosclerosis of coronary artery 04/17/2021 12/19/2022 Overview (06/13/2022): Cath/PCI 04/2014 with BMS to Cx and PTCA to LAD at [facility] anastamosis. Occluded SVG-RCA but patent RCA stents. h/o remote NH. CABG 1982. Hyperlipidemia 04/17/2021 06/20/2023 Typical atrial flutter 03/05/202112/19 Overview (06/13/2022): Diagnosis 01/2021. Single cardioversion. Osteoporosis 06/12/2020 05/22/2024 Encounters Date Type Department Care Team Description 03/17/2025 Telephone [facility] Cardiology [address] [place] [address] Arnulfo Luciano APRN clearance 02/15/2025 11:00 AM EDT Office Visit [facility] Cardiology [address] [place] [address] Arnulfo Luciano APRN Primary hypertension (Primary [...] Marco Antonio rded Speak language other than Icelandic at home Not on file 07/05/2023 Want [...] or (1 - 1-dose 75+ series) 12/03/2019 Falls Risk Screening 06/23/2024 COVID-19 VACCINE (5 - 2024-2 6 season) 2025 10/10/2021, 04/18/2021, 07/31/2020, Additional history exists Influenza Vaccine (#1) 2025 04/05/2016, 2015 Tobacco Cessation Counseling and Screening (12+) 02/15/2026 02/15/2025 Shingles Vaccine (Zoster) Completed 2018, 06/24/2018, 04/22/2013 Insurance [employer] MEDICARE PFFS [employer] MEDICARE PPO Advance Directives For more information, please contact: [phone] Documents on File Type Date Recorded Patient Pulp Refiner Operator Expl anation Advance Directives and Livin g Will 12/19/2022 5:33 AM * Full Code (Latest Code Status on File) Date Activated Date Inactivated Comments 12/19/2022 10:35 AM 12/20/2022 4:25 AM * Full Code Date Activated Date Inactivated Comments 12/18/2022 8:18 PM 12/19/2022 10:35 AM Care Teams Pipe Processor Relationship Specialty Start Date End Date Pietro Martinez MD [address] [place] [address] PCP - General Family Medicine 06/19/22 Simeon Guerrero MD [address] [place] [address] Referring Physician Cardiology 12/19/22
--- OUTSIDE RECORDS SUMMARY | 2025-05-05 08:44 | XMS_ITS | Clinical Summary ---
Author Organization [facility] Address [address] [place] [address] Care Team Providers Care Steel Erector Apprentice Name Role Phone Pietro Martinez MD Primary Care Provider [phone] Allergies Active Allergy Reactions Criticality Noted Date [...] Active Problems Problem Noted Date Diagnosed Date Gastroesophageal reflux disease 05/02/2025 Chronic kidney disease-mineral and bone disorder (CKD-MBD) 05/02/2025 Osteoporosis 06/12/2020 Stroke 11/30/2019 History of stroke 11/24/2019 BPH (benign prostatic hyperplasia) 02/02/2015 Chronic kidney disease, stage 3 03/21/2014 Hypertension 03/21/2014 Renal osteodystrophy 03/21/2014 Encounters Date Type Department Care Team Description 05/02/2025 1:20 PM EST Office Visit [facility] Nephrology, Bone & Mineral Metabolism [address] , [address] [place] [address] Aman Delgado MD Stage 3a chronic kidney disease (CMS/HCC) (Primary Dx); Renovascular hypertension; Benign prostatic hyperplasia, unspecified whether lower urinary tract symptoms present; Osteoporosis, unspecified osteoporosis type, unspecified pathological fracture presence; Chronic kidney disease-mineral and bone disorder (CKD-MBD); Gastroesophageal reflux disease, unspecified whether esophagitis present 05/02/2025 Travel 04/21/2025 Telephone [facility] Nephrology, Bone & Mineral Metabolism [address], [address] [place] [address] Lor Decker CNA 04/15/2025 Orders Only [facility] Nephrology, Bone & Mineral Metabolism [address], [address] [place] [id number] Aman Delgado MD Renal osteodystrophy (Primary Dx); Osteopenia, unspecified location 04/14/2025 [facility] Bone & Mineral Metabolism [address], [address] [place] [address] Aman Delgado MD HCN Clinical Concern/Question 02/15/2025 [facility] Bone & Mineral Metabolism [address], [address] [place] [address] Aman Delgado MD 02/14/2025 [facility] Nephrology, Bone & Mineral Metabolism [address], [address] [place] [address] Aman Delgado MD from Last 3 Months Immunizations Immunization Administration Dates Next Due Hep A, Adult 06/17/2018 Influenza, high-dose, quadrivalent 04/05/2016 Moderna COVID-19 Vaccine (Checker/Stocker) 12+ years 01/2021,07/04/2020 TD (adult), 2 Lf [...] Pulse 53 05/02/2025 1:25 PM EST Temperature 36.3 C (97.3 F) 11/01/2024 3:23 PM EDT Respiratory Rate 16 04/28/2024 12:30 PM EST Oxygen Saturation 97% 05/02/2025 1:25 PM EST Inhaled Oxygen Concentration - - Weight 67.2 kg (148 lb 2.4 oz) 05/02/2025 1:25 P M EST Height 165.1 cm (5' 5 ) 05/02/2025 1:25 PM EST Body Mass Index 24.65 05/02/2025 1:25 PM EST Plan of Treatment Upcoming Encounters Date Type Department Care Team ([facility] st Contact Info) Description 10/31/2025 2:20 PM EDT Office Visit [facility] Nephrology, Bone & Mineral Metabolism [address], [address] [place] [address] Health Maintenance Due Date Last Done Comments [facility]-Bone Density Scan 1945 [facility]-Medicare Annual Wellness (AWV) 1945 [facility]-Infant/Child/Adol SDOH Screenings 1945 [facility]- SDOH Screenings 1962 [facility]-Adult SDOH Screenings 1962 [facility]-Pneumococcal Vaccine: 50+ Years (1 of 1 - PCV) 1994 [facility]-DTaP,Tdap,and Td Vaccines (1 - Tdap) 08/26/1996 08/25/1996 [facility]-RSV Vaccine: 60+ Years or (1 - 1-dose 75+ series) 12/03/2019 [id number] Vaccine (5 - season) 2025 10/10/2021, 04/18/2021, 07/31/2020, Additional [...] patient's age to complete this topic Insurance MEDICARE Care Teams Steel Erector Apprentice Relationship Specialty Start Date End Date Pietro Martinez MD [address] [place] [address] [address] [place] [address] PCP - General 02/04/22
--- OUTSIDE RECORDS SUMMARY | 2025-05-05 08:44 | XMS_ITS | Encounter Summary ---
Author Organization [employer] ([place], [place], [place], [place], [place]) Address [address] [place] [address] Care Team Providers Care Low Voltage Technician Name Role Phone Pietro Martinez MD Primary Care Provider [phone] Simeon Guerrero MD Unavailable [phone] Reason for Visit * Reason Onset Date Comments clearance 03/17/2025 Encounter Details Date Type Department Care Team (Late st Contact Info) Description 03/17/2025 Telephone [facility] Cardiology [address] [place] [address] Arnulfo Luciano APRN [address] [facility] [address] [place] [address] clearance Social History Tobacco Use Types Packs/Day Years [...] Marco Antonio rded Speak language other than Ugandan at home Not on file 07/05/2023 Want [...] encounter Miscellaneous Notes * Telephone Encounter - Mirta Julius - 03/22/2025 10:46 AM EDT Faxed clearance to BG Zamudio. In letter I stated that we do not follow for coumadin and to reach outto whomever that is. Also sent last visit note and last testing. * Telephone Encounter - Fidelina Thomas - 03/22/2025 10:10 AM EDT Owen Zamudio calling for an update on the cardiac clearance. [phone] * Telephone Encounter - Fidelina Thomas - 03/17/2025 10:22 AM EDT Owen Zamudio requesting a clearance for a kyphoplasty with biopsy. Include recent note and testing. [phone] Attn: Korina Mcrae documented in this encounter Plan of Treatment Not on file documented as of this encounter Visit Diagnoses Not on filedocumented in this encounter Care Teams Low Voltage Technician Relationship Specialty Start Date End Date Pietro Martinez MD [address] [place] [address] PCP - General Family Medicine 06/19/22 Simeon Guerrero MD [address] [place] [address] [address] Referring Physician Cardiology 12/19/22 documented as of this encounter
--- OUTSIDE RECORDS SUMMARY | 2025-05-05 08:44 | XMS_ITS | Encounter Summary ---
Author Organization [employer] ([place], [place], [place], [place], [place]) Address [address] [place] [address] Care Team Providers Care Accounting Manager Cpa Name Role Phone Pietro Martinez MD Primary Care Provider [phone] Simeon Guerrero MD Unavailable [phone] Encounter Details Date Type Department Care Team (Late st Contact Info) Description 02/21/2021 Transcribed Document [facility] Family Medicine [facility] [place] [address] ProviderDoyle MD [address] [place] [address] Social History Tobacco Use Types Packs/Day [...] Performed On: 02/21/2021 18:27 EDT by INGRID LUX degreasing wheel operator Documentation Discharge Date/Time : 02/21/2021 19:15 EDT [...] - 02/21/2021 18:27 EDT Electronically signed by Rosalinda [facility] Conversion Manager Of Selection And Assessment Cerner at 10/10/2022 9:23 AM CDT documented in this encounter Plan of Treatment Not on file documented as of this encounter Visit Diagnoses Not on filedocumented in this encounter Care Teams Accounting Manager Cpa Relationship Specialty Start Date End Date Pietro Martinez MD [address] [place] [address] PCP - General Family Medicine 06/19/22 [place] [address] [place] [address] Referring Physician Cardiology 12/19/22 documented as of this encounter
--- OUTSIDE RECORDS SUMMARY | 2025-05-05 08:44 | XMS_ITS | Referral Summary ---
Author Organization [employer] ([place], [place], [place], [place], [place]) Address [address] [place] [address] Care Team Providers Care Food Critic Name Role Phone Pietro Martinez MD Primary Care Provider [phone] Simeon Guerrero MD Unavailable [phone] Encounters Date Type Department Care Team Description 03/17/2025 Telephone [facility] Cardiology [address] [place] [address] Arnulfo Luciano APRN clearance 02/15/2025 Travel 02/15/2025 11:00 AM EDT Office Visit [facility] Cardiology [address] [place] [address] Arnulfo Luciano APRN Primary hypertension (Primary [...] SVG-RCA but patent RCA stents. h/o remote [place]. CABG 1982. Hyperlipidemia 04/17/2021 06/20/2023 Typical atrial [...] Marco Antonio rded Speak language other than Tuvaluan at home Not on file 07/05/2023 Want [...] Plan of Treatment Not on file Insurance [facility] MEDICARE PFFS [facility] MEDIC[facility] PPO Advance Directives For more information, please contact: [phone] Documents on File Type Date Recorded Patient Washer Machine Expl anation Advance Directives and Livin g Will 12/19/2022 5:33 AM * Full Code (Latest Code Status on File) Date Activated Date Inactivated Comments 12/19/2022 10:35 AM 12/20/2022 4:25 AM * Full Code Date Activated Date Inactivated Comments 12/18/2022 8:18 PM 12/19/2022 10:35 AM Care Teams Food Critic Relationship Specialty Start Date End Date Pietro Martinez MD [address] [place] [address] PCP - General Family Medicine 06/19/22 [place] [address] [place] [address] [address] [place] [address] Referring Physician Cardiology 12/19/22
--- OUTSIDE RECORDS SUMMARY | 2025-05-05 08:44 | XMS_ITS | Encounter Summary ---
Author Organization [facility] Address [address] [place] [address] Care Team Providers Care Recreational Vehicle Resort Manager Name Role Phone Pietro Martinez MD Primary Care Provider [phone] Encounter Details Date Type Department Care Team ([facility] st Contact Info) Description 04/15/2025 Orders Only [facility] Nephrology, Bone & Mineral Metabolism [address] [facility] [address], [address] [place] [address] Aman Delgado MD [address] [facility] [address] [place] [address] Renal osteodystrophy (Primary Dx); Osteopenia, [...] Description 10/31/2025 2:20 PM EDT Office Visit [facility] Nephrology, Bone & Mineral Metabolism [address] [facility], [address] [place] [address] Scheduled Orders Name Type Priority [...] documented as of this encounter Care Teams Recreational Vehicle Resort Manager Relationship Specialty Start Date End Date Pietro Martinez MD [address] [place] [address] [address] [place] [address] PCP - General 02/04/22 documented as of this encounter
--- OUTSIDE RECORDS SUMMARY | 2025-05-05 08:44 | XMS_ITS | Encounter Summary ---
Author Organization [facility] Address [address] [place] [address] Care Team Providers Care Enterprise Application Administrator Name Role Phone Pietro Martinez MD Primary Care Provider [phone] Encounter Details Date Type Department Care Team (Late Contact Info) Description 02/15/2025 Telephone [facility] Bone & Mineral Metabolism [address], [address] [place] [address] Aman Delgado MD [address] [place] [address] Social History Tobacco Use Types [...] 10/31/2025 2:20 PM EDT Office Visit [facility] Nephrology, Bone & Mineral Metabolism [address], [address] [place] [address] documented as of this encounter Visit Diagnoses Not on filedocumented in this encounter Additional Health Concerns Assessment Noted Time A fall risk assessment has been complete d for the patient 11/01/2024 3:33 PM EDT A Body Mass Index follow-up plan has been documented for the patient 11/01/2024 3:52 PM EDT documented as of this encounter Care Teams Enterprise Application Administrator Relationship Specialty Start Date End Date Pietro Martinez MD [address] [place] [address] [address] [place] [address] PCP - General 02/04/22 documented as of this encounter
--- OUTSIDE RECORDS SUMMARY | 2025-05-05 08:44 | XMS_ITS | Encounter Summary ---
Author Organization [employer] ([place], [place], [place], [place], [place]) Address [address] [place] [address] Care Team Providers Care Curator Natural History Museum Name Role Phone Pietro Martinez MD Primary Care Provider [phone] Simeon Guerrero MD Unavailable [phone] Encounter Details Date Type Department Care Team (Late st Contact Info) Description 02/21/2021 Transcribed Document [facility] Family Medicine [facility] [place] [address] ProviderDoyle MD [address] [place] [address] Social History Tobacco Use Types Packs/Day Years Used Date Smoking Tobacco: Never Assessed Sex and Gender Information Value Date Recorded Sex Assigned at Not on file Legal Sex Male 5:43 PM CDT Gender Identity Not on file Sexual Orientation Not on file documented as of this encounter Miscellaneous Notes * Cerner Conversion Note - Historical ProviderMD - 02/21/2021 4:02 PM CDT Pre Procedure Adult Entered On: 02/21/2021 16:09 EDT Performed On: 02/21/2021 16:02 EDT by INGRID LUX RN Height and Weight, Clinical Dosing Height Source : Measured Height Entry Format : Louisa Height, Feet : 5 ft(Converted to: 152 cm, 60 Inch) Height, Inches : 5 Inch(Converted to: 0 ft 5 Inch, 12.70 cm) Clinical Height : 165.1 cm Weight Source : Standing scale Weight Entry Format : Louisa Clinical Dosing Weight : 71.82 kg Weight, Pounds : 158 lb Body Surface Area (BSA) : 1.79 m2 Body Mass Index : 26.3 kg/m2 (HI) [place] Body Weight : 61 kg INGRID LUX [...] Infectious Disease History : Influenza, Measles, Mumps INGRID LUX RN - 02/21/2021 16:02 EDT COVID19 PreProcedure [...] : Home Current Home Treatments : None INGIRD LUX RN - 02/21/2021 16:02 EDT [place] Suicide Severity Rating Scale (C-SSRS) CSSRS Past [...] Person/Pt Rep Name : jonelle caraballo spouse [phone] Want Family/Rep/Phys Notified of Admit : No Emergency Contact #1 : Jonelle Caraballo Emergency Contact #1 Phone Number : [phone] Chief Complaint : Here gor cardioversion Information Obtained From : Patient Primary Language : Setswana Communication Barrier : None Administrative Project Coordinator Needed : No INGRID LUX RN - [...] Scale Risk Level : 0-24 Low Risk [place] Fall Interventions : Adequate lighting, Assistive devices within reach, Bed in low position, Call device within reach INGRID LUX RN - 02/21/2021 16:02 EDT Electronically signed by Rosalinda [facility] Conversion Price Analyst Cerner at 10/10/2022 9:05 AM CDT documented in this encounter Plan of Treatment Not on file documented as of this encounter Visit Diagnoses Not on filedocumented in this encounter Care Teams Curator Natural History Museum Relationship Specialty Start Date End Date Pietro Martinez MD [address] [place] [address] PCP - General Family Medicine 06/19/22 Simeon Guerrero MD [address] [place] [address] [place] [address] Referring Physician Cardiology 12/19/22 documented as of this encounter
--- OUTSIDE RECORDS SUMMARY | 2025-05-05 08:44 | XMS_ITS | Encounter Summary ---
Author Organization [facility] Address [address] [place] [address] Care Team Providers Care Weight Recorder Name Role Phone Pietro Martinez MD Primary Care Provider [phone] Encounter Details Date Type Department Care Team (Late Contact Info) Description 04/21/2025 Telephone [facility] Nephrology, Bone & Mineral Metabolism [address], [address] [place] [address] Lor Decker, PRECISION MECHANICAL INSTRUMENT MAKER GS - 7 MAIN MEDICAL-SURGICAL Social History [...] 10/31/2025 2:20 PM EDT Office Visit Professional [facility] Nephrology, Bone & Mineral Metabolism [address], [address] [place] [address] documented as of this encounter Visit Diagnoses Not on filedocumented in this encounter Additional Health Concerns Assessment Noted Time A fall risk assessment has been complete d for the patient 11/01/2024 3:33 PM EDT A Body Mass Index follow-up plan has been documented for the patient 11/01/2024 3:52 PM EDT documented as of this encounter Care Teams Weight Recorder Relationship Specialty Start Date End Date Pietro Martinez MD [address] [place] [address] [address] [place] [address] PCP - General 02/04/22 documented as of this encounter
--- OUTSIDE RECORDS SUMMARY | 2025-05-05 08:44 | XMS_ITS | Encounter Summary ---
Author Organization [employer] ([place], [place], [place], [place], [place]) Address [address] [place] [address] Care Team Providers Care Central Communications Specialist Name Role Phone Pietro Martinez MD Primary Care Provider [phone] Simeon Guerrero MD Unavailable Encounter Details Date Type Department Care Team (Late st Contact Info) Description 02/21/2021 Transcribed Document [facility] Family Medicine [facility] [place] [address] ProviderDoyle MD [address] [place] [address] Social History Tobacco Use Types Packs/Day Years Used Date Smoking Tobacco: Never Assessed Sex and Gender Information Value Date Recorded Sex Assigned at Not on file Legal Sex Male 5:43 PM CDT Gender Identity Not on file Sexual Orientation Not on file documented as of this encounter Miscellaneous Notes * Cerner Conversion Note - Doyle ProviderMD - 02/21/2021 6:29 PM CDT [facility] [place] [address] AUGUST HOGUE :1945 Visit Time:02/21/2021 Your Visit Summary Your Care Team Admitting Physician - SIMEON GUERRERO MD-BLACK Attending Physician - SIMEON GUERRERO MD-BLACK Primary Care Physician - NATALIO WEBSTER MD-[facility] Referring Physician - NATALIO WEBSTER MD-FAM Your Diagnosis Typical atrial flutter, Typical atrial flutter These Are Your Goals No qualifying data available. Discharge Vitals Temperature 36.1 ??C Heart Rate (Monitored) 72 Respiratory Rate 16 Blood Pressure 100/62 What to do next Instructions From Your Care Team No driving for [address] Guerrero for an appointment. Follow-Up Appointments Follow Up with SIMEON GUERRERO MD-BLACK When Within 1 month Comments Please call for appointment Where: [address] [facility] [address] [place] [address]- Medications What How Much When Instructions Next [...] signals of the heart. ??? An ambulatory front desk monitor to record your heart's activity for [...] these instructions at home: Medicines ??? Take ezdk-zmw-ijhhkzd and prescription medicines only as told by [...] provider. Document Revised: 12/01/2019 Document Reviewed: 12/01/2019 [employer] Patient Education ?? 2020 [employer]. Electrical Cardioversion Electrical cardioversion is the delivery [...] including vitamins, herbs, eye drops, creams, and geml-umw-ojrordb medicines. ??? Any problems you or family [...] tells you to take them. ? Taking snye-yyi-bqyewhw medicines, vitamins, herbs, and supplements. General instructions [...] a sedative during your procedure. ??? Take yzjk-zpn-ijvunak and prescription medicines only as told by [...] provider. Document Revised: 01/10/2020 Document Reviewed: 01/10/2020 [employer] Patient Education ?? 2020 [employer] Emergency Awareness and Preventative Care STROKE [...] Assistance with quitting is available by contacting 5-866-WIOA-NOW. This is a free resource providing counseling, [...] EC CAN Complete: EC CAN Complete Patient Name:AUGUST HOGUE I have received and understand this information and was given the opportunity to ask questions. Patient/Clam Shucking Machine Tender Name: Patient/Clam Shucking Machine Tender Signature: Relationship to Patient: Clinician/Hospital Clam Shucking Machine Tender Signature: Date: Electronically signed by Rosalinda, [facility] Conversion Medical Service Representative Cerner at 10/10/2022 9:02 AM CDT documented in this encounter Plan of Treatment Not on file documented as of this encounter Visit Diagnoses Not on filedocumented in this encounter Care Teams Central Communications Specialist Relationship Specialty Start Date End Date Pietro Martinez MD [address] [place] [address] PCP - General Family Medicine 06/19/22 Simeon Guerrero MD [address] [place] [address] Referring Physician Cardiology 12/19/22 documented as of this encounter
--- OUTSIDE RECORDS SUMMARY | 2025-05-05 08:44 | XMS_ITS | Encounter Summary ---
Author Organization [employer] ([place], [place], [place], [place], [place]) Address [address] [place] [address] Care Team Providers Care Bleach Boiler Filler Name Role Phone Pietro Martinez MD Primary Care Provider [phone] Simeon Guerrero MD Unavailable [phone] Encounter Details Date Type Department Care Team (Late st Contact Info) Description 02/21/2021 Transcribed Document [facility] [place] [address] ProviderDoyle MD [address] [place] [address] Social History Tobacco Use Types Packs/Day [...] signals of the heart. ??? An ambulatory manager physical to record your heart's activity for a [...] these instructions at home: Medicines ??? Take ibrn-qoc-uiacixo and prescription medicines only as told by [...] provider. Document Revised: 12/01/2019 Document Reviewed: 12/01/2019 Elsevier Patient Education ? 2020 [employer] Emergency Medicine Electrical Cardioversion Electrical cardioversion [...] including vitamins, herbs, eye drops, creams, and lgal-oiu-ewwaotb medicines. ??? Any problems you or family [...] tells you to take them. ? Taking fuaf-fnq-wzbyssd medicines, vitamins, herbs, and supplements. General instructions [...] a sedative during your procedure. ??? Take qolx-qig-nuuegzl and prescription medicines only as told by [...] provider. Document Revised: 01/10/2020 Document Reviewed: 01/10/2020 Elsevier Patient Education ? 2019 [employer] Electronically signed by Johana Tellez Conversion Computer Support Specialist Instructor Cerner at 10/10/2022 9:19 AM CDT documented in this encounter Plan of Treatment Not on file documented as of this encounter Visit Diagnoses Not on filedocumented in this encounter Care Teams Bleach Boiler Filler Relationship Specialty Start Date End Date Pietro Martinez MD [address] [place] [address] PCP - General Family Medicine 06/19/22 Simeon Guerrero MD [address] [place] [address] Referring Physician Cardiology 12/19/22 documented as of this encounter
== END 2025-05-05 23:59 | disposition home or self-care (01) ==
LOC: RAD 08:40
PROVIDERS: PCP Nurse Practitioner; Visit Provider Internal Medicine Nephrology
DX: M81.0 Age-related osteoporosis without current pathological fracture (principal); N25.0 Renal osteodystrophy
CPT/HCPCS: 77080

== ENCOUNTER 2025-05-23 11:25 | Outpatient (CLI) | payer MEDICARE, SELFPAY ==
--- OUTSIDE RECORDS SUMMARY | 2025-05-02 13:20 | XMS_ITS | Encounter Summary ---
Author Organization [facility] Address [address] [place] [address] Care Team Providers Care Tip Puncher Name Role Phone Pietro Martinez MD Primary Care Provider [phone] Reason for Referral * Consultation (Routine) - Authorized Specialty Diagnoses / Procedures Referred By Lisset machado Referred To Contact Diagnoses Renovascular hypertension Aman Delgado MD [address] [address] Phone: tel: fax: Referral ID Status Reason Start Date Expiration Date V isits Requested Visits Authorized [id number] Authorized 05/02/2025 11/01/2026 1 1 Reason for Visit * Reason Comments Follow-up Encounter Details Date Type Department Care Team (Late st Contact Info) Description 05/02/2025 1:20 PM EST Office Visit [facility] Nephrology, Bone & Mineral Metabolism [address] , [address] [place] [address] Aman Delgado MD [address] [place] [address] Stage 3a chronic kidney disease (CMS/HCC) (Primary Dx); Renovascular hypertension; Benign prostatic hyperplasia, unspecified whether lower urinary tract symptoms present; Osteoporosis, unspecified osteoporosis type, unspecified pathological fracture presence; Chronic kidney disease-mineral and bone disorder (CKD-MBD); Gastroesophageal reflux disease, unspecified whether esophagitis present Social History Tobacco Use Types Packs/Day Years [...] Sign Reading Time Taken Comments Blood Pressure 161/89 05/02/2025 1:43 PM EST Pulse 53 05/02/2025 1:25 PM EST Temperature - - Respiratory Rate - - Oxygen Saturation 97% 05/02/2025 1:25 PM EST Inhaled Oxygen Concentration - - Weight 67.2 kg (148 lb 2.4 oz) 05/02/2025 1:25 P M EST Height 165.1 cm (5' 5 ) 05/02/2025 1:25 PM EST Body Mass Index 24.65 05/02/2025 1:25 PM EST documented in this encounter Miscellaneous Notes * Progress Notes - Lin Chilel MD - 05/02/2025 1:20 PM EST Mr. Louis is a 79 y.o. male with a history of coronary artery disease, Hx of Tetralogy of fallot s/p repair in 1962, atrial flutter, AAA, s/p Mechanical aortic valve replacement, hx of Bundle brunch block and hypertension, here for followup in the CKD Clinic. Today, patient is accompanied by his and reports he is doing okay. He recently had back surgery for fractured vertebrae a proximally 1 month ago and is recovering from that. His lymphoma is alsoin remission. He has no other complaints. Blood pressure is slightly elevated at 160 1/89 but at home he reports it is typically systolic blood pressure of 1 20s to 130s. He is currently on amlodipine 5 mg daily, lisinopril 5 mg daily and bisoprolol 2.5 mg daily. He denies any urinary symptoms. OBJECTIVE Vitals: 05/02/25 1343 BP: (!) 161/89 Pulse: SpO2: PHYSICAL EXAMINATION Constitutional: No acute distress, well-nourished Respiratory: normal effort Cardiovascular: no edema Neurologic: Alert and oriented LAB RESULTS Lab Results Component Value Date/Time CALCIUM 9.7 04/16/2024 0928 CALCIUM 9.0 01/01/2021 0000 PHOS 3.3 01/01/2021 0000 VITD25 78.7 01/01/2021 0000 CREATININE 1.33 (H) 04/16/2024 0928 CREATININE 1.80 01/01/2021 0000 CREATININE 1.64 (H) 11/03/2019 0213 CREATININE 1.99 (H) 11/02/2019 0659 EGFR 54.4 04/16/2024 0928 EGFR 37 01/01/2021 0000 EGFR 41 11/03/2019 0213 EGFR 50 (L) 11/03/2019 0213 EGFR 33 11/02/2019 0659 EGFR 40 (L) 11/02/2019 0659 ASSESSMENT/PLAN 1. 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 2. Hypertension. BP uncontrolled in clinic but controlled at home. Will have pt continue to monitor at home Continue amlodipine 5 daily, lisinopril 5 daily and bisoprolol 2.5 daily 3. Renal osteodystrophy Vitamin D25-OH nml at 64.2 Continue every other day Vit D3 4. BPH. cont flomax 5. Osteoporosis. BMD improved 07/14; Repeat DEXA scan pending at OSH 6. GERD, On PPI. 7. Gout -continue allopurinol RTC with repeat labs in 6 months Lin Chilel MD Nephrology/Critical Care Medicine Fellow Pager: [phone] Cosigned by Aman Delgado MD at 05/03/2025 3:16 PM EST Associated attestation - Aman Delgado MD - 05/03/2025 3:16 PM EST I saw and evaluated the patient with the resident/fellow. I discussed the case with the resident/fellow and agree with the findings and plan as documented. documented in this encounter Plan of Treatment Upcoming Encounters Date Type Department Care Team ([facility] st Contact Info) Description 10/31/2025 2:20 PM EDT Office Visit [facility] Nephrology, Bone & Mineral Metabolism [address], [address] [place] [address] Scheduled Orders Name Type Priority Associated Diagnoses Orde r Schedule PTH Intact Total Lab Routine Renovascular hypertension Expected: 10/30/2025 (Approximate), Expires: 11/03/2026 Vitamin D 25 Hydroxy Lab Routine Renovascular hypertension Expected: 10/30/2025 (Approximate), Expires: 11/03/2026 Albumin-creatinine ratio, urine, random Lab Routine Renovascular hypertension Expected: 10/30/2025 (Approximate), Expires: 11/03/2026 Protein, Random, Urine with Creatinine Lab Routine Renovascular hypertension Expected: 10/30/2025 (Approximate), Expires: 11/03/2026 CBC W/O Differential Lab Routine Renovascular hypertension Expected: 10/30/2025 (Approximate), Expires: 11/03/2026 Renal Function Panel, Plasma Lab Routine Renovascular hypertension Expected: 10/30/2025 (Approximate), Expires: 11/03/2026 Scheduled Referrals Name Type Priority Associated Diagnoses Orde r Schedule Follow Up Nephrology Outpatient Referral Routine Renovascular hypertension Expected: 10/30/2025 (Approximate), Expires: 06/01/2026 documented as of this encounter Visit Diagnoses Diagnosis Stage 3a chronic kidney disease (CMS/HCC)- Primary Renovascular hypertension Secondary renovascular hypertension, unspecified Benign prostatic hyperplasia, unspecified whether lower urinary tract symptoms present Osteoporosis, unspecified osteoporosis type, unspecified pathological fracture presence Chronic kidney disease-mineral and bone disorder (CKD-MBD) Gastroesophageal reflux disease, unspecified whether esophagitis present documented in this encounter Additional Health Concerns Assessment Noted Time A fall risk assessment has been complete d for the patient 05/02/2025 1:41 PM EST A Body Mass Index follow-up plan has been documented for the patient 05/03/2025 3:16 PM EST documented as of this encounter Care Teams Tip Puncher Relationship Specialty Start Date End Date Pietro Martinez MD [address] [place] [address] #1 #1 DUSTY Bender [address] PCP - General 02/04/22 documented as of this encounter
--- NOTE | 2025-05-23 11:29 | XR_ITS ---
FINAL REPORT CLINICAL HISTORY: LEFT SHOULDER PAIN nki COMPARISON: 01/29/2021 FINDINGS: LEFT SHOULDER 3 views of the left shoulder were obtained. There is no acute fracture or dislocation. There is progression of degenerative joint disease now with near complete loss of the joint space. Soft tissues are unremarkable. IMPRESSION: Progression of degenerative joint disease without acute bony abnormality. Reviewed, Interpreted and Dictated by Inna Gifford MD Transcribed by Radha Ordaz Authenticated and [facility]
--- OUTSIDE RECORDS SUMMARY | 2025-05-23 11:56 | XMS_ITS | Encounter Summary ---
Author Organization [employer] ([place], [place], [place], [place], [place]) Address [address] [place] [address] Care Team Providers Care Erp Technical Lead Name Role Phone Pietro Martinez MD Primary Care Provider [phone] Simeon Guerrero MD Unavailable [phone] Encounter Details Date Type Department Care Team (Late st Contact Info) Description 02/21/2021 Transcribed Document [facility] [place] [facility] [place] [address] ProviderDoyle MD [address] [place] [address] Social History Tobacco Use Types Packs/Day [...] On: 02/21/2021 18:27 EDT by INGRID LUX information systems security developer Documentation Discharge Date/Time : 02/21/2021 19:15 EDT [...] 02/21/2021 18:27 EDT Electronically signed by Rosalinda [facility] Conversion Welder Setter Electron Beam Machine Cerner at 10/10/2022 9:23 AM CDT documented in this encounter Plan of Treatment Not on file documented as of this encounter Visit Diagnoses Not on filedocumented in this encounter Care Teams Erp Technical Lead Relationship Specialty Start Date End Date Pietro Martinez MD [address] [place] [address] PCP - General Family Medicine 06/19/22 [place] [address] [place] [address] Referring Physician Cardiology 12/19/22 documented as of this encounter
--- OUTSIDE RECORDS SUMMARY | 2025-05-23 11:56 | XMS_ITS | Clinical Summary ---
Author Organization [facility] Address [address] [place] [address] Care Team Providers Care Regional Sales Director Name Role Phone Pietro Martinez MD Primary Care Provider [phone] Allergies Active Allergy Reactions Criticality Noted Date [...] Description 05/02/2025 1:20 PM EST Office Visit [facility], [place], [facility] Nephrology, Bone & Mineral Metabolism [address] , [address] [place] [address] Aman Delgado MD Stage 3a chronic kidney disease (CMS/HCC) (Primary Dx); Renovascular hypertension; Benign prostatic hyperplasia, unspecified whether lower urinary tract symptoms present; Osteoporosis, unspecified osteoporosis type, unspecified pathological fracture presence; Chronic kidney disease-mineral and bone disorder (CKD-MBD); Gastroesophageal reflux disease, unspecified whether esophagitis present 05/02/2025 Travel 04/21/2025 Telephone [facility] [place] Nephrology, Bone & Mineral Metabolism [address] [facility] [address], [address] [place] [address] Lor Decker CNA 04/15/2025 Orders Only [facility] [place] Nephrology, Bone & Mineral Metabolism [address], [address] [place] [address] Aman Delgado MD Renal osteodystrophy (Primary Dx); Osteopenia, unspecified location 04/14/2025 Telephone [facility] [place] Mineral [facility]abolism [address] [facility] [address], [address] [place] [address] Aman Delgado MD HCN Clinical Concern/Question from Last 3 Months Immunizations Immunization Administration Dates Next Due Hep A, Adult 06/17/2018 Influenza, high-dose, quadrivalent 04/05/2016 Moderna COVID-19 Vaccine (Nitroglycerin Nitrator Operator Batch) 12+ years 01/2021,07/04/2020 TD (adult), 2 Lf [...] Upcoming Encounters Date Type Department Care Team ([facility] st Contact Info) Description 10/31/2025 2:20 PM EDT Office Visit [facility], [place] Nephrology, Bone & Mineral Metabolism [address], [address] [place] [address] Health Maintenance Due Date Last Done Comments [facility]-Bone Density Scan 1945 [facility]-Medicare Annual Wellness (AWV) 1945 [facility]-/Child/Adol SDOH Screenings 1945 [facility]- SDOH Screenings 1962 [facility]-Adult SDOH Screenings 1962 [facility]-Pneumococcal Vaccine: 50+ Years (1 of 1 - PCV) 1994 [facility]-DTaP,Tdap,and Td Vaccines (1 - Tdap) 08/26/1996 08/25/1996 [facility]-RSV Vaccine: 60+ Years or (1 - 1-dose 75+ series) 12/03/2019 NZU-FGMYH-50 Vaccine ( - season) 2025 10/10/2021, 04/18/2021, [...] patient's age to complete this topic Insurance [place] [address] MEDICARE Care Teams Regional Sales Director Relationship Specialty Start Date End Date Pietro Martinez MD [address] [place] [address] [address] [place] [address] PCP - General 02/04/22
--- OUTSIDE RECORDS SUMMARY | 2025-05-23 11:56 | XMS_ITS | Referral Summary ---
Author Organization [employer] ([place], [place], [place], [place], [place]) Address [address] [place] [address] Care Team Providers Care Review Analyst Name Role Phone Pietro Martinez MD Primary Care Provider [phone] Simeon Guerrero MD Unavailable [phone] Encounters Date Type Department Care Team Description 03/17/2025 Telephone [facility] Cardiology [address] [place] [address] Arnulfo Luciano APRN clearance from Last 3 Months Allergies Active Allergy [...] SVG-RCA but patent RCA stents. h/o remote [place]. CABG 1982. Hyperlipidemia 04/17/2021 06/20/2023 Typical atrial [...] Plan of Treatment Not on file Insurance [employer] MEDICARE PFFS [employer] MEDICARE PPO Advance Directives For more information, please contact: [phone] Documents on File Type Date Recorded Patient Chemical Detection Expert Expl anation Advance Directives and Livin g Will 12/19/2022 5:33 AM * Full Code (Latest Code Status on File) Date Activated Date Inactivated Comments 12/19/2022 10:35 AM 12/20/2022 4:25 AM * Full Code Date Activated Date Inactivated Comments 12/18/2022 8:18 PM 12/19/2022 10:35 AM Care Teams Review Analyst Relationship Specialty Start Date End Date Pietro Martinez MD [address] [place] [address] PCP - General Family Medicine 06/19/22 [place] [address] [place] [address] [address] [place] [address] Referring Physician Cardiology 12/19/22
--- OUTSIDE RECORDS SUMMARY | 2025-05-23 11:56 | XMS_ITS | Encounter Summary ---
Author Organization [facility] Address [address] [place] [address] Care Team Providers Care Wedding Day Coordinator Name Role Phone Pietro Martinez MD Primary Care Provider [phone] Reason for Visit * Reason Onset Date Comments HCN Clinical Concern/Question 04/14/2025 Encounter Details Date Type Department Care Team ([facility] st Contact Info) Description 04/14/2025 Telephone [facility] [address] [facility], [address] [place] [address] Aman Delgado MD [address] [facility] [address] [place] [address] HCN Clinical Concern/Question Social History [...] Faxed lab orders and dexa order to [facility]. Lab orders faxed to [phone] anddexa order faxed to [phone]. Called patient and informed that lab and dexa orders were faxed. No other questions or concerns at this time. * Telephone Encounter - Rosamaria Mcarthur - 04/14/2025 9:48 AM EDT Clinical Concern/Question Reason for Call: Patient checking to see if he needs a Dexa scan before his follow up. Best contact number: [phone] (home) Optimal time of day to reach caller: ANYTIME Additional comments/information from caller: None Note: Please do not reply to this message. Follow-up communication and further actions as a result of this message need to be communicated with the patient directly, if the patient is not active onMyChart. If the patient is active on MyChart, they will receive notification of the communication/outcome via [employer]. documented in this encounter Plan of Treatment Upcoming Encounters Date Type Department Care Team (Late st Contact Info) Description 10/31/2025 2:20 PM EDT Office Visit [facility] Nephrology, Bone & Mineral Metabolism [address] [facility] [address], [address] [place] [address] documented as of this encounter Visit Diagnoses Not on filedocumented in this encounter Additional Health Concerns Assessment Noted Time A fall risk assessment has been complete d for the patient 11/01/2024 3:33 PM EDT A Body Mass Index follow-up plan has been documented for the patient 11/01/2024 3:52 PM EDT documented as of this encounter Care Teams Wedding Day Coordinator Relationship Specialty Start Date End Date Pietro Martinez MD [address] [place] [address] [address] [place] [address] PCP - General 02/04/22 documented as of this encounter
--- OUTSIDE RECORDS SUMMARY | 2025-05-23 11:56 | XMS_ITS | Encounter Summary ---
Author Organization [facility] Address [address] [place] [address] Care Team Providers Care Shipping And Receiving Clerk Name Role Phone Pietro Martinez MD Primary Care Provider [phone] Encounter Details Date Type Department Care Team ([facility] st Contact Info) Description 04/15/2025 Orders Only [facility] Nephrology, Bone & Mineral Metabolism [address] [facility], [address] [place] [address] Aman Delgado MD [address] [facility] [address] [place] [address] Renal osteodystrophy (Primary Dx); Osteopenia, [...] Description 10/31/2025 2:20 PM EDT Office Visit [facility] Nephrology, Bone & Mineral Metabolism [address] [facility], [address] [place] [address] Scheduled Orders Name Type Priority [...] documented as of this encounter Care Teams Shipping And Receiving Clerk Relationship Specialty Start Date End Date Pietro Martinez MD [address] [place] [address] [address] [place] [address] PCP - General 02/04/22 documented as of this encounter
--- OUTSIDE RECORDS SUMMARY | 2025-05-23 11:56 | XMS_ITS | Encounter Summary ---
Author Organization [employer] ([place], [place], [place], [place], [place]) Address [address] [place] [address] Care Team Providers Care Personal Care Service Provider Name Role Phone Pietro Martinez MD Primary Care Provider Simeon Guerrero MD Unavailable [phone] Encounter Details Date Type Department Care Team (Late st Contact Info) Description 02/21/2021 Transcribed Document [facility] [place] [address] ProviderDoyle MD [address] [place] [address] Social History Tobacco Use Types Packs/Day Years Used Date Smoking Tobacco: Never Assessed Sex and Gender Information Value Date Recorded Sex Assigned at Not on file Legal Sex Male 5:43 PM CDT Gender Identity Not on file Sexual Orientation Not on file documented as of this encounter Miscellaneous Notes * Cerner Conversion Note - Doyle ProviderMD - 02/21/2021 6:29 PM CDT [facility] [place] [address] AUGUST HOGUE :1945 Visit Time:02/21/2021 Your Visit Summary Your Care Team Admitting Physician - SIMEON GUERRERO MD-BLACK Attending Physician - SIMEON GUERRERO MD-BLACK Primary Care Physician - NATALIO WEBSTER MD-[facility] Referring Physician - NATALIO WEBSTER [...] Comments Please call for appointment Where: [address] [facility] [address] [place] [address]- Medications What How Much When Instructions Next [...] signals of the heart. ??? An ambulatory elementary education tutor to record your heart's activity for a [...] these instructions at home: Medicines ??? Take eykt-qjs-erubqbi and prescription medicines only as told by [...] provider. Document Revised: 12/01/2019 Document Reviewed: 12/01/2019 [employer] Patient Education ?? 2020 [employer]. Electrical Cardioversion Electrical cardioversion is the delivery [...] including vitamins, herbs, eye drops, creams, and nhvs-qzo-ncgzwry medicines. ??? Any problems you or family [...] tells you to take them. ? Taking zwgu-qom-ltlrifk medicines, vitamins, herbs, and supplements. General instructions [...] a sedative during your procedure. ??? Take ibyd-yjb-jfbnxem and prescription medicines only as told by [...] provider. Document Revised: 01/10/2020 Document Reviewed: 01/10/2020 [employer] Patient Education ?? 2020 [employer] Inc. Emergency Awareness and Preventative Care STROKE [...] Assistance with quitting is available by contacting 6-723-YVQJ-NOW. This is a free resource providing counseling, [...] was given the opportunity to ask questions. Patient/Student Assistant Name: Patient/Student Assistant Signature: Relationship to Patient: Clinician/Hospital Student Assistant Signature: Date: Electronically signed by Rosalinda, [facility] Conversion Charge Rn Cerner at 10/10/2022 9:02 AM CDT documented in this encounter Plan of Treatment Not on file documented as of this encounter Visit Diagnoses Not on filedocumented in this encounter Care Teams Personal Care Service Provider Relationship Specialty Start Date End Date Pietro Martinez MD [address] [place] [place] [address] PCP - General Family Medicine 06/19/22 Simeon Guerrero MD [address] [place] [address] Referring Physician Cardiology 12/19/22 documented as of this encounter
--- OUTSIDE RECORDS SUMMARY | 2025-05-23 11:56 | XMS_ITS | Encounter Summary ---
Author Organization [employer] ([place], [place], [place], [place], [place]) Address [address] [place] [address] Care Team Providers Care Ragman Name Role Phone Pietro Martinez MD Primary Care Provider [phone] Simeon Guerrero MD Unavailable [phone] Encounter Details Date Type Department Care Team (Late st Contact Info) Description 02/21/2021 Transcribed Document [facility] [place] [facility] [place] [address] ProviderDoyle MD [address] [place] [address] Social History Tobacco Use Types Packs/Day [...] Source : Measured Height Entry Format : Throckmorton Height, Feet : 5 ft(Converted to: 152 cm, 60 Inch) Height, Inches : 5 Inch(Converted to: 0 ft 5 Inch, 12.70 cm) Clinical Height : 165.1 cm Weight Source : Standing scale Weight Entry Format : Throckmorton Clinical Dosing Weight : 71.82 kg Weight, Pounds : 158 lb Body Surface Area (BSA) : 1.79 m2 Body Mass Index : 26.3 kg/m2 (HI) [place] Body Weight : 61 kg INGRID LUX [...] INGRID LUX RN - 02/21/2021 16:02 EDT [place] Suicide Severity Rating Scale (C-SSRS) CSSRS Past [...] Person/Pt Rep Name : jonelle caraballo spouse [phone] Want Family/Rep/Phys Notified of Admit : No Emergency Contact #1 : Jonelle Caraballo Emergency Contact #1 Phone Number : [phone] Chief Complaint : Here gor cardioversion Information Obtained From : Patient Primary Language : Belarusian Communication Barrier : None Ict Support Engineer Needed : No INGRID LUX RN - [...] Scale Risk Level : 0-24 Low Risk [place] Fall Interventions : Adequate lighting, Assistive devices within reach, Bed in low position, Call device within reach INGRID LUX RN - 02/21/2021 16:02 EDT Electronically signed by Rosalinda [facility] Conversion Gas Golf Cart Repairer Cerner at 10/10/2022 9:05 AM CDT documented in this encounter Plan of Treatment Not on file documented as of this encounter Visit Diagnoses Not on filedocumented in this encounter Care Teams Ragman Relationship Specialty Start Date End Date Pietro Martinez MD [address] [place] [address] PCP - General Family Medicine 06/19/22 Simeon Guerrero MD [address] [place] [address] [place] [address] Referring Physician Cardiology 12/19/22 documented as of this encounter
--- OUTSIDE RECORDS SUMMARY | 2025-05-23 11:56 | XMS_ITS | Encounter Summary ---
Author Organization [employer] ([place], [place], [place], [place], [place]) Address [address] [place] [address] Care Team Providers Care Cottrell Operator Name Role Phone Pietro Martinez MD Primary Care Provider [phone] Simeon Guerrero MD Unavailable [phone] Encounter Details Date Type Department Care Team (Late st Contact Info) Description 02/21/[address] [facility] [place] Family [place] [facility] [place] [address] ProviderDoyle MD [address] [place] [address] Social History Tobacco Use Types Packs/Day [...] signals of the heart. ??? An ambulatory pilot submersible to record your heart's activity for a [...] these instructions at home: Medicines ??? Take jpoi-zhi-nugozup and prescription medicines only as told by [...] Reviewed: 12/01/2019 Elsevier Patient Education ? 2020 e[employer]v Inc. Emergency Medicine Electrical Cardioversion Electrical cardioversion [...] including vitamins, herbs, eye drops, creams, and ubum-xdd-okcqtce medicines. ??? Any problems you or family [...] tells you to take them. ? Taking hnxc-vwg-gjvsynx medicines, vitamins, herbs, and supplements. General instructions [...] a sedative during your procedure. ??? Take afsl-zep-nuenbwr and prescription medicines only as told by [...] Reviewed: 01/10/2020 Elsevier Patient Education ? 2019 [employer]v Inc. documented in this encounter Plan of Treatment Not on file documented as of this encounter Visit Diagnoses Not on filedocumented in this encounter Care Teams Cottrell Operator Relationship Specialty Start Date End Date Pietro Martinez MD [address] [place] [address] PCP - General Family Medicine 06/19/22 Simeon Guerrero MD [address] [place] [address] Referring Physician Cardiology 12/19/22 documented as of this encounter
--- OUTSIDE RECORDS SUMMARY | 2025-05-23 11:56 | XMS_ITS | Clinical Summary ---
Author Organization [employer] ([place], [place], [place], [place], [place]) Address [address] [place] [address] Care Team Providers Care Try Out Person Name Role Phone Pietro Martinez MD Primary Care Provider [phone] Simeon Guerrero MD Unavailable [phone] Allergies Active Allergy Reactions Criticality Noted Date [...] SVG-RCA but patent RCA stents. h/o remote [place]. CABG 1982. Hyperlipidemia 04/17/2021 06/20/2023 Typical atrial flutter 03/05/202112/19 Overview (06/13/2022): Diagnosis 01/2021. Single cardioversion. Osteoporosis 06/12/2020 05/22/2024 Encounters Date Type Department Care Team Description 03/17/2025 Telephone [facility] Cardiology [address] [place] [address] Arnulfo Luciano APRN clearance from Last 3 Months Family History Medical [...] Vaccine (Zoster) Completed 2018, 06/24/2018, 04/22/2013 Insurance [facility] MEDICARE PFFS Member Subscriber Plan / Payer (Ef fective 2017-Present) Name:Jose G Louis Relation to Subscriber:Self Name:Jose G Louis Payer ID:[id number] (NAIC) Type:Not on file Address: [place] [id number] [facility] MEDICARE PPO Advance Directives For more information, please contact: [phone] Documents on File Type Date Recorded Patient Healthcare Receptionist Expl anation Advance Directives and Livin g Will 12/19/2022 5:33 AM * Full Code (Latest Code Status on File) Date Activated Date Inactivated Comments 12/19/2022 10:35 AM 12/20/2022 4:25 AM * Full Code Date Activated Date Inactivated Comments 12/18/2022 8:18 PM 12/19/2022 10:35 AM Care Teams Try Out Person Relationship Specialty Start Date End Date Pietro Martinez MD [address] [place] [address] PCP - General Family Medicine 06/19/22 Simeon Guerrero MD [address] [place] [address] Referring Physician Cardiology 12/19/22
--- OUTSIDE RECORDS SUMMARY | 2025-05-23 11:56 | XMS_ITS | Encounter Summary ---
Author Organization [facility] Address [address] [place] [address] Care Team Providers Care Business Representative Name Role Phone Pietro Martinez MD Primary Care Provider [phone] Encounter Details Date Type Department Care Team ([facility] Contact Info) Description 04/21/2025 Telephone [facility] Nephrology, Bone & Mineral Metabolism [address] [facility], [address] [place] [address] Lor Decker CNA GS - 7 MAIN MEDICAL-SURGICAL Social History [...] encounter Miscellaneous Notes * Telephone Encounter - Lor Decker CNA - 05/11/2025 4:58 PM EST 04/21/25 called pt left vm documented in this encounter Plan of Treatment Upcoming Encounters Date Type Department Care Team ([facility] Contact Info) Description 10/31/2025 2:20 PM EDT Office Visit [facility] [employer] Nephrology, Bone & Mineral Metabolism [address] [facility], [address] [place] [address] documented as of this encounter Visit Diagnoses Not on filedocumented in this encounter Additional Health Concerns Assessment Noted Time A fall risk assessment has been complete d for the patient 11/01/2024 3:33 PM EDT A Body Mass Index follow-up plan has been documented for the patient 11/01/2024 3:52 PM EDT documented as of this encounter Care Teams Business Representative Relationship Specialty Start Date End Date Pietro Martinez MD [address] [place] [address] [address] [place] [address] PCP - General 02/04/22 documented as of this encounter
--- OUTSIDE RECORDS SUMMARY | 2025-05-23 11:56 | XMS_ITS | Encounter Summary ---
Author Organization [facility] Address [address] [place] [address] Care Team Providers Care Line Installer Repairer Name Role Phone Pietro Martinez MD Primary Care Provider [phone] Encounter Details Date Type Department Care Team (Late st Contact Info) Description 03/22/2024 Orders Only External Location [address] [place] [address] Provider, External Social History Tobacco Use Types [...] Description 10/31/2025 2:20 PM EDT Office Visit [facility] Nephrology, Bone & Mineral Metabolism [address] [facility], [address] [place] [address] documented as of this encounter [...] documented as of this encounter Care Teams Line Installer Repairer Relationship Specialty Start Date End Date Pietro Martinez MD [address] [place] [address] [address] [place] [address] PCP - General 02/04/22 documented as of this encounter
--- OUTSIDE RECORDS SUMMARY | 2025-05-23 11:56 | XMS_ITS | Encounter Summary ---
Author Organization [facility] Address [address] [place] [address] Care Team Providers Care Plumber'S Assistant Name Role Phone Pietro Martinez MD Primary Care Provider [phone] Encounter Details Date Type Department Care Team [...] Description 10/31/2025 2:20 PM EDT Office Visit [facility] Nephrology, Bone & Mineral Metabolism [address] [facility], [address] [place] [address] documented as of this encounter Visit Diagnoses Not on filedocumented in this encounter Additional Health Concerns Assessment Noted Time A fall risk assessment has been complete d for the patient 05/02/2025 1:41 PM EST A Body Mass Index follow-up plan has been documented for the patient 05/03/2025 3:16 PM EST documented as of this encounter Care Teams Plumber'S Assistant Relationship Specialty Start Date End Date Pietro Martinez MD [address] [place] [address] [address] [place] [address] PCP - General 02/04/22 documented as of this encounter
== END 2025-05-23 23:59 | disposition home or self-care (01) ==
LOC: RAD 11:26
PROVIDERS: PCP Nurse Practitioner; Visit Provider Nurse Practitioner
DX: M19.012 Primary osteoarthritis, left shoulder
CPT/HCPCS: 73030